=== PATIENT | male | born 1990 | race Caucasian/White ===

== ENCOUNTER 2018-02-23 16:23 | Emergency (ER) | payer SELFPAY ==
[2018-02-23 16:24] VITALS: BP 141/108; PULSE 101; RESP 24; TEMP 36.6; O2SAT 97; BMI 23.6
--- NOTE | 2018-02-23 16:33 | RAD_ITS ---
STUDY: X-RAY - RIGHT TIBIA AND FIBULA REASON FOR EXAM: Male, 27 years old. Fall with abrasions. TECHNIQUE: Frontal and lateral view(s) of the tibia and fibula were obtained. COMPARISON: None. FINDINGS: Normal visualized tibia. Normal visualized fibula. There is no demonstrated acute fracture. There is anterior soft tissue swelling. RAD/Tibia & Fibula 2 Views IMPRESSION: No fracture seen. Electronically Signed: Ronak Ac MD at 17:25 EDT , Service support ,
--- NOTE | 2018-02-23 16:50 | ED.DCSUM_ITS ---
- ER Visit Summary Date of Service: 02/23/18 Chief Complaint: [Laceration right long] History of Present Illness: The patient is a 27 M [presents the emergency department after sustaining a laceration to his right long while skateboarding. Patient states that he struck his long against a rail causing it to split open. Patient able to bear weight but having pain with ambulation. Patient up- to-date on tetanus.] Physical Examination: [Right leg-there is a 2.5 cm vertical laceration over the mid long overlying the mid tibia. Patient does have some diffuse bony tenderness on exam. No active bleeding currently. Neurovascularly intact distally.] Test Results: [X-ray of the right tibia and fibula obtained showed no fractures] Emergency Department Course and Treatment: [Laceration repair-wound sterilely draped and prepped. Wound anesthetized locally with 1% lidocaine total 3 cc. Wound cleansed with Shur-Clens and irrigated with copious saline. Using 4-0 nylon a total of 3 single interrupted sutures placed with good wound edge approximation. Patient tolerated procedure well. Patient had a clean dressing applied.] Treatment Plan: [Suture removal in 10 days.] Disposition: [Discharged home in stable condition. Patient advised to return if worsening pain, redness, purulent drainage, or condition should worsen in any way.] Impression: [Laceration right leg 2.5 cm simple repair Contusion right leg] This note was generated with [employer] dictation software. It may contain incorrect words, spelling, and punctuation that were not noted in review of the chart prior to signing ED Disposition - Plan for ED Patient: Chief Complaint: Laceration Referrals: Care Physician,No Primary [Primary Care Provider] -
--- NOTE | 2018-02-23 16:50 | ED.DEP ---
ED Disposition - Plan for ED Patient: Chief Complaint: Laceration Instructions: ED Laceration Ext Sutr Stap Tape, ED Contusion Lower Ext Referrals: Care Physician,No Primary [Primary Care Provider] - Lilian Tloedo MD [STAFF PHYSICIAN] - 10 Day for suture removal
== END 2018-02-23 17:13 | disposition home or self-care (01) ==
PROVIDERS: Emergency Provider Emergency Medicine
DX: S81.811A Laceration without foreign body, right lower leg, initial encounter (principal); W20.8XXA Other cause of strike by thrown, projected or falling object, initial encounter; Y93.51 Activity, roller skating (inline) and skateboarding; Y92.89 Other specified places as the place of occurrence of the external cause; Y99.9 Unspecified external cause status
CPT/HCPCS: 12001; 73590; 99283

== ENCOUNTER 2018-04-05 06:01 | Outpatient (CLI) | payer SELFPAY ==
[2018-04-05] VITALS (7 sets, daily range): BP systolic 130–150; BP diastolic 67–89; PULSE 52–93; RESP 16–17; TEMP 36.2–36.4; O2SAT 97–99; BMI 24.2
[2018-04-05] MEDS: Glucagon 1 MG/ML Syringe IV ×2 (06:19→07:05)
--- NOTE | 2018-04-05 06:39 | NURSING ---
some pieces of chicken came up, trying hot water.
--- NOTE | 2018-04-05 07:38 | ED.VISSUMM ---
- ER Visit Summary Date of Service: 04/05/18 Chief Complaint: Food impaction History of Present Illness: The patient is a 28 M presenting secondary to concern for food impaction. Patient states that he has had prior similar episodes in the past that required endoscopy. At 5 PM last night patient ate some chicken, he states that he has been unable to get it to go down completely and is having difficulty with tolerating liquids and solids. Physical Examination: Vital signs are within normal limits, patient is afebrile. General: Patient is well-nourished well-developed and in no acute distress. Head: Normocephalic, atraumatic Eyes: Pupils equal round and reactive bilaterally, extra occular motion intact bialterally ENT: Moist mucous membranes Neck: Supple, no lymphadenopathy, no JVD, no meningismus CVS: Heart regular rate and rhythm, no murmurs, rubs or gallops, radial pulses 2+ bilaterally Resp: Respirations nondistressed, lung sounds clear bilaterally Abdomen: Soft, nontender, nondistended, no palpable masses, normal bowel sounds Back: Nontender Extremities: Nontender, atraumatic, active full range of motion, no peripheral edema Skin: warm, no rashes, no petechia Neuro: Alert and oriented x 4, CN 2-12 intact, no lateralizing neurological defecits Psyc: Normal affect Test Results: None indicated Emergency Department Course and Treatment: Patient presented due to concern for a esophageal food impaction. IV was established patient was given glucagon ?2 and was p.o. challenged with Coca-Cola and warm water. Patient was immediately vomiting these things up and was unable to tolerate these liquids. I believe he requires endoscopy. I discussed with Dr. Kirkland who agreed to perform endoscopy on this patient to relieve his food impaction. Disposition: Endoscopy Impression: 1. Esophageal food impaction This note was generated with [employer] dictation software. It may contain incorrect words, spelling, and punctuation that were not noted in review of the chart prior to signing ED Disposition - Plan for ED Patient: Chief Complaint: Foreign Body Referrals: Care Physician,No Primary [Primary Care Provider] -
--- NOTE | 2018-04-05 07:41 | ED.DCSUM_ITS ---
- ER Visit Summary Date of Service: 04/05/18 Chief Complaint: Food impaction History of Present Illness: The patient is a 28 M presenting secondary to concern for food impaction. Patient states that he has had prior similar episodes in the past that required endoscopy. At 5 PM last night patient ate some chicken, he states that he has been unable to get it to go down completely and is having difficulty with tolerating liquids and solids. Physical Examination: Vital signs are within normal limits, patient is afebrile. General: Patient is well-nourished well-developed and in no acute distress. Head: Normocephalic, atraumatic Eyes: Pupils equal round and reactive bilaterally, extra occular motion intact bialterally ENT: Moist mucous membranes Neck: Supple, no lymphadenopathy, no JVD, no meningismus CVS: Heart regular rate and rhythm, no murmurs, rubs or gallops, radial pulses 2 + bilaterally Resp: Respirations nondistressed, lung sounds clear bilaterally Abdomen: Soft, nontender, nondistended, no palpable masses, normal bowel sounds Back: Nontender Extremities: Nontender, atraumatic, active full range of motion, no peripheral edema Skin: warm, no rashes, no petechia Neuro: Alert and oriented x 4, CN 2-12 intact, no lateralizing neurological defecits Psyc: Normal affect Test Results: None indicated Emergency Department Course and Treatment: Patient presented due to concern for a esophageal food impaction. IV was established patient was given glucagon ?2 and was p.o. challenged with Coca-Cola and warm water. Patient was immediately vomiting these things up and was unable to tolerate these liquids. I believe he requires endoscopy. I discussed with Dr. Kirkland who agreed to perform endoscopy on this patient to relieve his food impaction. Disposition: Endoscopy Impression: 1. Esophageal food impaction This note was generated with [employer] dictation software. It may contain incorrect words, spelling, and punctuation that were not noted in review of the chart prior to signing ED Disposition - Plan for ED Patient: Chief Complaint: Foreign Body Referrals: Care Physician,No Primary [Primary Care Provider] -
[2018-04-05] MEDS: 0.9% Normal Saline 1,000 ML 150 ML IV (08:23)
--- NOTE | 2018-04-05 08:37 | HP.PCM_ITS ---
History of Present Illness Date of Admission: 04/05/18 The patient is a 28 year old M with an esophageal foreign body. He notes a prior episode of an esophageal foreign body removed in [place] 2 years previously. He did not have a follow up EGD. He notes dysphagia to solids every week. He ate chicken last night at 5pm. He will normally be able to clear his obstruction with hot water. He has not been able to do so this event. He was given glucagon in the ER. It did not help Past Medical History Allergies No Known Allergies Allergy (Verified 04/05/18 06:01) Home Medications: Ambulatory Orders Medication Instructions Recorded No Known/Unobtainable [No Known 08/07/15 Home Medications] Surgical History: no surgical history Smoking Status: Never smoker Review of Systems Constitutional: Denies: Chills, Fever, Weight Change HEENT: Denies: Head Aches, Sinus Congestion, Sinus Drainage Cardiovascular: Denies: Chest Pain, Palpitations Respiratory: Denies: Cough, Shortness of breath at rest, Sputum production Gastrointestinal: Denies: Abdominal Pain, Nausea, Vomiting Genitourinary: Denies: Dysuria Musculoskeletal: Denies: Joint Pain, Joint Tenderness Skin: Denies: Rash, Wounds Neurological: Denies: Numbness, Tingling, Focal weakness Psychiatric: Denies: Anxiety, Depression, Homicidal Ideations, Suicidal Ideations Hematologic/ Lymphatic: Denies: Easy Bruising, Easy Bleeding VTE Information - Inpt Only VTE Present on Admission: No VTE Pharm Prophylaxis ordered?: No - Physical Exam General: Alert, Oriented x3, Cooperative HEENT: Atraumatic, PERRLA, EOMI, Normocephalic Neck: Supple, No JVD, Negative Carotid Bruits Lungs: Clear to auscultation, Normal air movement Cardiovascular: Regular rate, No murmurs Abdomen: Bowel Sounds Present, Soft, Non Tender Extremities: No edema, Capillary Refill Less than 3 Seconds Skin: No rashes, No breakdown Musculoskeletal: No Tenderness to Palpation of Joints or Extremities Neurological: Cranial nerves II-XII grossly intact Psych/Mental Status: Normal Affect, Appropriate Vital Signs Temp Pulse Resp BP Pulse Ox 97.5 F L 52 L 17 142/67 H 99 04/05/18 06:02 04/05/18 06:02 04/05/18 06:02 04/05/18 06:04/05/18 06:02 Oxygen Delivery Method Room Air Weight: 81 kg Body Mass Index (BMI) 24.2 Assessment/Plan recurring esophageal foreign body. I plan to perform EGD with removal of esophageal foreign body. THe patient understands the risks, benefits and possible complications including the need for intubation and esophageal injury. He consents. I plan to have him follow up a few weeks from now for follow up endoscopy/ biopsy to assess for eosinophilic esophagitis
--- NOTE | 2018-04-05 09:46 | OP.PCM_ITS ---
Report of Operation Date of Procedure: 04/05/18 Post-Operative Diagnosis: esophageal foreign body Surgery/Procedure Performed:: esophageal foreign body - passed spontaneously Description of Surgical Findings:: EGD Type of Anesthesia:: MAC Anesthesiologist: Hardik Kumar Specimen's removed: none Description of Procedure: The patient was brought to the endoscopy suite. Sign in was performed verifying patient, site, planned procedure, critical nursing information, the patient was monitored with cardiac, pulse oximetric, and blood pressure monitoring devices. Monitored anesthetic care was provided for sedation. Following IV sedation and after the oropharynx was sprayed with Cetacaine spray , a video gastroscope was inserted in the oropharynx and advanced down the esophagus without difficulty. The scope was advanced through the stomach. by this point in time, the esophageal foreign body passed by itself the stomach and was consistent with the chicken that the patient described. The stomach itself looked unremarkable. The scope withdrawn. There were signs of irritation from the GE junction to about the mid esophagus consistent with a recent esophageal foreign body. No biopsies were obtained at this time. The patient tolerated the procedure well and was brought to recovery in stable condition
== END 2018-04-05 10:37 | disposition home or self-care (01) ==
LOC: ED 07:45 → EN 08:43 → AC 04-06 10:49
PROVIDERS: Visit Provider Surgery
PROC: 0DJ08ZZ Inspection of Upper Intestinal Tract, Via Natural or Artificial Opening Endoscopic (ICD-10-PCS; CPT 43235; principal; 2018-04-05 09:15)
DX: T18.128A Food in esophagus causing other injury, initial encounter (principal); X58.XXXA Exposure to other specified factors, initial encounter; Y93.89 Activity, other specified; Y92.9 Unspecified place or not applicable; Y99.9 Unspecified external cause status
CPT/HCPCS: 43235; J7030; A4216; J1610

== ENCOUNTER 2018-09-13 21:54 | Emergency (ER) | payer SELFPAY ==
[2018-09-13 21:55] VITALS: BP 158/96; PULSE 63; RESP 16; TEMP 37.1; O2SAT 99; BMI 25.7
[2018-09-13] MEDS: 0.9% Normal Saline 1,000 ML 1000 ML IV (22:22)
[2018-09-13] MEDS: Ondansetron 4 MG/2 ML Vial IV (22:23)
[2018-09-13] MEDS: Glucagon 1 MG/ML Syringe IV (22:23)
--- NOTE | 2018-09-13 23:07 | ED.VISSUMM ---
- ER Visit Summary Date of Service: 09/13/18 Chief Complaint: Esophageal foreign body History of Present Illness: The patient is a 28 M with no primary care physician. He reports that 530 this afternoon he was eating chicken breast and got some stuck in his esophagus. He has tried to relieve this and reports he is gotten some of it out, but he is still unable to even swallow his saliva. He reports that his throat feels raw from trying to bring this up. States that pain is 8 out of 10 at worst and 6 out of 10 currently. Is worsened by coughing. Is relieved by nothing. He denies any abdominal pain. No nausea, vomiting, or diarrhea. His last bowel was today. He said no melena hematochezia. No dysuria or frequency. Patient reports that he has had this multiple times in the past. Physical Examination: Vitals: Stable. Afebrile. General: Well-nourished and well-developed. Head: Normocephalic atraumatic. Neck: Supple, no lymphadenopathy. No JVD. Nontender. Cardiovascular: Regular rate and rhythm. No murmurs. Respiratory: No respiratory distress. Clear to auscultation bilaterally. Abdominal: Soft, nontender, nondistended, normal bowel sounds. No guarding, rebound, or peritoneal signs. Back: Nontender. Extremities: Nontender, no edema. Skin: Normal color, no rash. Neurologic: Alert and oriented ?3. Cranial nerves II through XII are intact. Normal strength and sensation. Psych: Normal affect. Emergency Department Course and Treatment: Patient had an IV placed. He was given glucagon and Zofran IV. We tried p.o. challenge with Coca-Cola and with warm water (he reports this worked better last time) without relief. Treatment Plan: The patient was discussed with Dr. Burt Bañuelos, who is on-call for surgery for no doc, and he asked that I speak with [facility] as Dr. Kirkland did endoscopy on him in March. The patient was discussed with Dr. Ojeda who reports that she does not treat esophageal impactions and asked that we transfer the patient. Patient reports that he has been seen at [facility] in the past for this. He was discussed with them and will be transferred for further evaluation and treatment. He does not want to incur the expense of transferred by squad and will drive himself. Disposition: Transferred in stable condition. Impression: 1. Esophageal impaction. This note was generated with [employer] dictation software. It may contain incorrect words, spelling, and punctuation that were not noted in review of the chart prior to signing ED Disposition - Plan for ED Patient: Chief Complaint: Foreign Body Referrals: Care Physician,No Primary [Primary Care Provider] -
[2018-09-13 23:48] VITALS: BP 159/90; PULSE 89; RESP 18; O2SAT 97
--- OUTSIDE RECORDS SUMMARY | 2018-11-09 05:15 | XMS RPT_ITS ---
:1990 Author Organization [facility] Care Team Providers Name Role Phone LUIS MARTIN Myrick. Attending Unavailable PROVIDER, UNKNOWN Referring Unavailable Brian Lim Primary Care Unavailable Primay Care Physicia, No Primary Care Unavailable Omar Higgins Attending Unavailable Marcio Schaefer Attending Unavailable Primay Care Physicia, No Primary Care Unavailable Primay Care Physicia, No Primary Care Unavailable Eric Loja Attending Unavailable PROBLEMS PROBLEMS DATE TYPE CONDITION / CODE ATTENDING STATUS SOURCE 09/14/2018 Admitting Food in esophagus MARTIN CORRAL. Active [facility] Diagnosis causing other System injury, initial Repository encounter / T18.128A(ICD-10) 09/14/2018 Admitting Exposure to other LUIS, VASQUEZAL X. Active [facility] Diagnosis specified System factors, initial Repository encounter / X58.XXXA(ICD-10) 09/14/2018 Admitting Dysphagia, LUIS, KAMAL X. Active [facility] Diagnosis unspecified / System R13.10(ICD-10) Repository 09/14/2018 Admitting Other specified LUIS, KAMAL X. Active [facility] Diagnosis diseases of System esophagus / Repository K22.8(ICD-10) 09/14/2018 Admitting Gastro-esophageal LUIS, KAMAL X. Active [facility] Diagnosis reflux disease System without Repository esophagitis / K21.9(ICD-10) 09/14/2018 Admitting Nausea with LUIS, KAMAL X. Active [facility] Diagnosis vomiting, System unspecified / Repository R11.2(ICD-10) 09/14/2018 Admitting Headache / LUIS, KAMAL X. Active [facility] Diagnosis R51(ICD-10) System Repository 09/14/2018 Admitting Foreign body of LUIS, KAMAL X. Active [facility] Diagnosis alimentary tract, System part unsp, init Repository encntr / T18.9XXA(ICD-10) PROCEDURES PROCEDURES No Procedure Records FoundRESULTS RESULTS Observed: 09/14/2018 Status: F Source: [facility] SURGICAL PATHOLOGY 11:23 AM SYSTEM REPOSITORY [id number] [facility] DEPARTMENT OF [facility] PATHOLOGY AND LABORATORY MEDICINE [address] [place], [place] [id number] FINAL SURGICAL PATHOLOGY REPORT NAME: ANIVAL MOYA : 1990 28 Y M BILLING NO.: [id number] LOCATION: [address] [place] [address] B PROCEDURE 09/14/2018 DATE: SURGEON: ALEJANDRA LOPEZ M.D. RECEIVED 09/14/2018 DATE: ATTENDING: MARTIN CORRAL M.D. REPORT DATE: 09/15/2018 COPIES TO: DIAGNOSIS: ESOPHAGUS, BIOPSY - SQUAMOUS MUCOSA WITH CHANGES CONSISTENT WITH GASTROESOPHAGEAL REFLUX DISEASE. EOSINOPHILS ARE NOTED WITHIN THE SQUAMOUS MUCOSA. GLANDULAR MUCOSA IS NOT IDENTIFIED. QUAN/HERNANF <Sign Out DrNemo Torres> JOEY ALANIZ MD CLINICAL INFORMATION: Difficulty swallowing SPECIMEN: ESOPHAGUS BIOPSY GROSS DESCRIPTION: Mid esophagus biopsy Received in formalin are multiple fragments of ag, soft tissue that aggregate to 0.9 x 0.4 x 0.1 cm. Specimen entirely submitted in one cassette. (bits ns, 1) RPV/JAF Disclaimer: The following statement applies to all immunohistochemistry, in situ hybridization, molecular studies, and immunofluorescence testing. The use of one or more reagents in the above tests is regulated as an analyte specific reagent (ASR). These tests were developed and their performance characteristics determined by the clinical laboratories of [facility]. They have not been cleared by the US Food and Drug Administration (FDA). The FDA has determined that such clearance or approval is not necessary. All the above immunostains were performed on paraffin embedded tissue. Appropriate positive and negative controls (where applicable) were run in parallel with the patient's specimen; these controls showed expected staining pattern, with acceptable intensity of staining. Immunohistochemical assays have not been validated on decalcified tissues. Results should be interpreted with caution given the raised possibility of false negativity on decalcified specimens. Professional Performing Location: [address] [address]. DEPARTMENT OF PATHOLOGY AND LABORATORY MEDICINE [place], [place] [address] CR CHEST PA/LAT Observed: 09/14/2018 Status: F Source: [facility] 3:02 AM SYSTEM REPOSITORY Patient Name: ANIVAL MOYA Diagnostic Radiology Exam Date/Time 09/14/2018 01:41:16 EST Exam CR Chest PA/LAT Ordering Physician [id number] TEIXEIRA Accession Number [id number] CPT4 Codes 69172 () Reason For Exam food bolus, improved Report Clinical: 28-year-old male patient coming in to the ER complaining of food stuck in the throat, and coughing for about 4 hours. Chest, PA and lateral, 09/14/2018. The tracheobronchial air shadow is unremarkable. The lungs are clear, no infiltration. Pulmonary vessels are well-defined, no indication for cardiac failure. The heart is not enlarged. The visualized bony thorax shows no abnormality. IMPRESSION: Negative chest. Report Dictated on Final Dictated: 09/14/2018 3:02 am Dictating Physician: MD GARNER SHARDUL Signed Date and Time: 09/14/2018 3:03 am Signed by: MD GARNER SHARDUL Transcribed Date and Time: 09/14/2018 3:02 HEMOGRAM Collected: 09/14/2018 Status: F Source: [facility] 2:29 AM SYSTEM REPOSITORY TYPE CODE TESTS RESULT OUT OF RANGE REFERENCE UNITS LAB IWBC 3.6-10.7 10*3/uL WBC Normal 7.4 LAB RBC 4.40-5.90 10*6/uL RBC Normal 4.99 LAB HGB 13.0-18.0 g/dL Normal Hemoglobin 15.7 LAB HCT 40.0-52.0 % Normal Hematocrit 45.3 LAB MCV 80.0-98.0 fL MCV Normal 90.8 LAB MCH 26.0-34.0 pg MCH Normal 31.5 LAB MCHC 32.0-36.0 % MCHC Normal 34.7 LAB RDW 11.5-14.5 % RDW Normal 12.7 LAB PLT 140-440 10*3/uL Platelet Normal 211 LAB MPV 7.4-10.4 fL High MPV 10.8 Performed By: #### JULIAN FOX3M, MG3 #### [employer] [address] [place] [phone] BASIC METABOLIC PANEL Collected: 09/14/2018 Status: F Source: [facility] 2:29 AM SYSTEM REPOSITORY TYPE CODE TESTS RESULT OUT OF RANGE REFERENCE UNITS LAB NA3 137-145 mmol/L Sodium Normal 140 LAB K3 3.5-5.1 mmol/L Normal Potassium 3.9 LAB CL3 98-107 mmol/L Chloride Normal 104 LAB CO23 22-30 mmol/L Carbon Normal Dioxide 27 LAB ANIN3 NA Anion Gap 10 LAB GLUC3 70-100 mg/dL Glucose Normal 83 LAB BUN3 7-20 mg/dL Urea Normal Nitrogen 16 LAB CRET3 0.52-1.25 mg/dL Normal Creatinine 0.91 LAB GF3BR >60 mL/min eGFR > 60.0 LAB GF3WR >60 mL/min eGFR OTHER > 60.0 Result Comment: Source- MDRD equation with creatinine calibration to IDMS(NKDEP) eGFR not recommended for drug dose adjustment LAB CA3 8.4-10.4 mg/dL Normal Calcium 9.0 Performed By: #### JULIAN FOX3M, MG3 #### [employer] [address] [place] [phone] MAGNESIUM Collected: 09/14/2018 Status: F Source: [facility] 2:29 AM SYSTEM REPOSITORY TYPE CODE TESTS RESULT OUT OF RANGE REFERENCE UNITS LAB MG3 1.6-2.3 mg/dL Normal Magnesium 2.2 Performed By: #### DOMINIQUE, JULIAN3M, MG3 #### [employer] [address] [place] [phone] DISCHARGE SUMMARY Observed: 09/14/2018 Status: F Source: [facility] 2:19 AM SYSTEM REPOSITORY Attestation signed by Martin Corral MD at 09/14/2018 9:26 PM Patient seen and examined today. See my notes regarding today's discharge plan on progress note dated 09/14/18 Internal Medicine: Med TeamDischarge Summary and Transition Note Anival Moya : 1990 ADMIT DATE: 09/14/2018 DISCHARGE DATE: 09/14/2018 PRIMARY CARE PHYSICIAN: No primary care provider on file. VISIT STATUS: Observation CODE STATUS: Full Code DISCHARGE DIAGNOSES: Active Problems: Dysphagia Resolved Problems: * No resolved hospital problems. * HOSPITAL COURSE: with past medical history of difficulty swallowing, EGD last done November was normal. Since then, he had no problems swallowing until this afternoon. He had more frequent episodes of GERD in the past, recently now down to once a month, described as heartburn. ? At 530 PM today patient was eating chicken, tortilla, when he felt food getting stuck in his throat. He said he had no difficulty initiating the swallow, but that he felt the food get stuck. He tried drinking some water, but the food did not go down. He had ten episodes of vomiting, with note of some blood streaks towards the end. Denies vomiting blood clots. He denies chest pain, difficulty of breathing. ? Denies smoking. Admits to drinking 4-5 beers a week. Denies illicit drug use. ? Upon arriving at the ED, patient reports that his symptoms has resolved spontaneously. Food that was previously stuck, was able to go down already and he is able to drink water and swallow with no difficulty. EGD performed and showed diffusely irritated esophagus, dilation performed, and biopsies pending. To follow up with GI outpatient, with PPI prescribed for esophageal irritation. PROCEDURES: EGD CONSULTANTS: Dr. Martin Corral GI DISCHARGE MEDICATIONS: Anival Moya Home Medication Instructions MATT:[id number] Printed on:09/14/18 7230 Medication Information pantoprazole (PROTONIX) 40 MG tablet Take 1 tablet by mouth every morning (before breakfast) DIET: Diet NPO Effective Now Diet NPO Time Specified ACTIVITY: No restriction. COMPLEXITY OF FOLLOW UP: [x] Moderate Complexity: follow up within 7-14 calendar days (51664) [] Severe Complexity: follow up within 7 calendar days (94531) FOLLOW UP TESTING, PENDING RESULTS OR REFERRALS AT TRANSITIONAL CARE VISIT: [] Yes [x] No RECOMMENDED NEXT STEPS: Follow-up with PCP and GI DISPOSITION: Home Follow up with Follow-up With Details Why Contact Info Ivy Huston MD On 09/20/2018 at 10:40am 55 [facility] [address] [facility] [address] Notification (telephone encounter) to PCP initiated by discharging physician/delegate: N/A INSTRUCTIONS TO MA/SW: Please call patient on day after discharge (must document patient contacted within 2 business days of discharge). FOLLOW UP QUESTIONS FOR MA/SW: 1. Did you get medications filled and taking them as instructed from discharge? 2. Are you following your discharge instructions from your hospital stay? 3. Please confirm patient is scheduled for a follow up appointment within the above time frame. PROVIDER NOTE Observed: 09/14/2018 Status: F Source: [facility] 12:49 AM SYSTEM REPOSITORY Emergency Department Encounter [facility] 6W MED SURG Patient: Anival Moya : 1990 Date of Evaluation: 09/14/2018 ED Supervising Physician: Beatriz Hung MD I independently examined and evaluated Anival Moya. In brief, he is a 28 y.o. male that presented to the ED with concern for food bolus stuck in esophagus. Says that he was eating boneless chicken and developed the acute sensation of it being stuck. He was transferred here for further evaluation. He says when he sat in the bed he felt like it passed. No fever, chills, cough, dyspnea, headache, lightheadedness, numbness, tingling, weakness, chest pain or pressure, palpitations, nausea, vomiting, rashes. Says he feels much better. Focused exam: Nontoxic. Conversational. Reclined in bed. CN II - XII intact. Pupils equally round and reactive. Extraocular motions intact. Clear sclera. Moist mucosal membranes. Lungs clear with nonlabored breathing. No murmurs, rubs, or gallops appreciated. Abdomen soft, nontender, and nondistended with bowel sounds present. Ambulatory. Brief ED course/MDM: ? Nursing notes were reviewed. Patient was evaluated. Orders placed as below. ? Patient requested a glass of water because he believes the food has passed. This was provided. He has been tolerating oral intake. ? Per transfer paperwork, [place] consulted. Will appreciate their recommendations. ? GI consulted. ? PACs system down. Imaging independently reviewed with internal medicine team. No appreciated pneumothorax, pneumonia, effusions, normal heart contours. Questionable but not deifnite mediastinal air at the left heart border. Medications sodium chloride flush 0.9 % injection 10 mL (not administered) sodium chloride flush 0.9 % injection 10 mL (not administered) magnesium hydroxide (MILK OF MAGNESIA) 400 MG/5ML suspension 30 mL (not administered) ondansetron (ZOFRAN) injection 4 mg (not administered) acetaminophen (TYLENOL) tablet 650 mg (not administered) pantoprazole (PROTONIX) injection 40 mg (not administered) And sodium chloride (PF) 0.9 % injection 10 mL (not administered) Orders Placed This Encounter Procedures ? XR CHEST STANDARD (2 VW) ? CBC ? Basic Metabolic Panel w/ Reflex to MG ? Magnesium ? Diet NPO Effective Now ? Vital signs per unit routine ? Tobacco cessation education ? Up as tolerated ? Place intermittent pneumatic compression device ? Full Code ? Inpatient consult to Internal Medicine ? Inpatient consult to GI ? Consult to Gastroenterology ? Initiate Oxygen Therapy Protocol ? PATIENT STATUS (FROM ED OR OR/PROCEDURAL) Observation Critical Care: 0 minutes, excluding separately reportable procedures were spent directly caring for patient, interpreting testing, consulting, and documenting care. There was a high probability of clinically significant/life threatening deterioration in the patient's condition which required my urgent intervention. Impression: 1. Food impaction of esophagus, initial encounter All diagnostic, treatment, and disposition decisions were made by myself in conjunction with the [facility]. For all further details of the patient's emergency department visit, please see their documentation. (Please note that portions of this note may have been completed with a voice recognition program. Efforts were made to edit the dictations but occasionally words are mis-transcribed.) Beatriz Hung MD [employer] Beatriz Hung MD 09/14/18 0224 ED PROVIDER NOTE Observed: 09/14/2018 Status: F Source: [facility] 12:49 AM SYSTEM [facility] Patient: Anival Moya : 1990 Date of Evaluation: 09/14/2018 ED [facility] Provider: TORI Youssef CNP Chief Complaint Chief Complaint Patient presents with ? Airway Obstruction pt came from [place] for a food bolus stuck in his throat. just after arrival, pt stated that he feels like it passed [place] Anival Moya is a 28 y.o. who presents to the emergency department From another facility with food bolus. Earlier today he was eating boneless chicken, was stuck in his throat, and he is unable to swallow since then. He had symptoms like this in the past. He actually reports when he arrived in the Emergency Department his symptoms have resolved and he feels like he can swallow now. He received glucagon prior to arrival. ROS: Review of Systems At least 10 systemsreviewed and otherwise acutely negative except as in the [place]. Past History No past medical history on file. No past surgical history on file. Social History Social History ? Marital status: Single Spouse name: N/A ? Number of children: N/A ? Years of education: N/A Social History Main Topics ? Smoking status: Not on file ? Smokeless tobacco: Not on file ? Alcohol use Not on file ? Drug use: Unknown ? Sexual activity: Not on file Other Topics Concern ? Not on file Social History Narrative ? No narrative on file Medications/Allergies Previous Medications No medications on file No Known Allergies Physical Exam ED Triage Vitals [09/14/18 0057] BP Temp Temp Source Pulse Resp SpO2 Height Weight 108/79 98.2 ?F (36.8 ?C) Oral 86 18 99 % -- -- Physical Exam General: Vital signs noted, nontoxic-appearing HEENT: Sclera clear, moist mucous membranes, neck is supple and nontender Cardiac: Regular heart rate and rhythm Pulmonary: No respiratory distress and lungs are clear Abdomen: Soft and nontender Extremities: Nontender, ambulating without difficulty Skin: Color, warm, dry, no cyanosis Neurologic: Alert, no focal findings Psychiatric: cooperative and appropriate exam otherwise unremarkable Diagnostics Labs: No results found for this visit on 09/14/18. Radiographs: No results found. ED Course and MDM In brief, Anival Moya is a 28 y.o. male who presented to the emergency department As described above. We gave him a small sip of water and he is able to keep this down without difficulty with no coughing or drooling. Maintaining secretions without difficulty and speaking in full sentences. I did touch base with admitting resident and gastrointestinal. Because patient is now swallowing without difficulty collaborative plan with Dr. Aguilar is to medically admit patients and he will have scope tomorrow morning. We will check chest x-ray to evaluate for perforation and admitting resident to follow- up on this read after attending and admitting resident reviewed images together. Admitting resident to admit and we do feel patient is safe for floor. Patient made n.p.o. per gastrointestinal. ED Medication Orders None Final Impression 1. Food impaction of esophagus, initial encounter DISPOSITION Admitted 09/14/2018 01:28:06 AM Patient seen independently with an Emergency Medicine attending available for supervision. (Please note that portions of this note may have been completed with a voice recognition program. Efforts were made to edit the dictations but occasionally words aremis-transcribed.) TORI Youssef CNP Acute Care [facility] TORI Youssef CNP 09/14/18 0438 EMERGENCY DEPARTMENT Observed: 09/13/2018 Status: F Source: [facility] SUMMARY 11:11 PM [facility] REPOSITORY [facility] Medical Records Department [address] [place] [address] Emergency Department Summary 09/13/18 2307 MR#: [id number] Acct: [id number] Name: ANIVAL MOYA Rep #: [id number] : 1990 28 From: Eric Loja MD PCP: Care Physician, No Primary Status: REG ER - ER Visit Summary Date of Service: 09/13/18 Chief Complaint: Esophageal foreign body History of Present Illness: The patient is a 28 M with no primary care physician. He reports that 530 this afternoon he was eating chicken breast and got some stuck in his esophagus. He has tried to relieve this and reports he is gotten some of it out, but he is still unable to even swallow his saliva. He reports that his throat feels raw from trying to bring this up. States that pain is 8 out of 10 at worst and 6 out of 10 currently. Is worsened by coughing. Is relieved by nothing. He denies any abdominal pain. No nausea, vomiting, or diarrhea. His last bowel was today. He said no melena hematochezia. No dysuria or frequency. Patient reports that he has had this multiple times in the past. Physical Examination: Vitals: Stable. Afebrile. General: Well-nourished and well-developed. Head: Normocephalic atraumatic. Neck: Supple, no lymphadenopathy. No JVD. Nontender. Cardiovascular: Regular rate and rhythm. No murmurs. Respiratory: No respiratory distress. Clear to auscultation bilaterally. Abdominal: Soft, nontender, nondistended, normal bowel sounds. No guarding, rebound, or peritoneal signs. Back: Nontender. Extremities: Nontender, no edema. Skin: Normal color, no rash. Neurologic: Alert and oriented 3. Cranial nerves II through XII are intact. Normal strength and sensation. Psych: Normal affect. Emergency Department Course and Treatment: Patient had an IV placed. He was given glucagon and Zofran IV. We tried p.o. challenge with Coca-Cola and with warm water (he reports this worked better last time) without relief. Treatment Plan: The patient was discussed with Dr. Burt Bañuelos, who is on-call for surgery for no doc, and he asked that I speak with [facility] as Dr. Kirkland did endoscopy on him in March. The patient was discussed with Dr. Ojeda who reports that she does not treat esophageal impactions and asked that we transfer the patient. Patient reports that he has been seen at [facility] in the past for this. He was discussed with them and will be transferred for further evaluation and treatment. He does not want to incur the expense of transferred by squad and will drive himself. Disposition: Transferred in stable condition. Impression: 1. Esophageal impaction. This note was generated with [employer] software. It may contain incorrect words, spelling, and punctuation that were not noted in review of the chart prior to signing ED Disposition - Plan for ED Patient: Chief Complaint: Foreign Body Referrals: Care Physician,No Primary [Primary Care Provider] - What to do if you have Problems For any increased pain, shortness of breath, bleeding, nausea or vomiting, chest pain, or any unexpected problems, contact your Primary Care Provider. Call [facility] ([phone]) or report to the closest Emergency Room. Call 911 if necessary. 09/13/18 2311 <Electronically signed by Eric Loja MD> Date Eric Loja MD Cosigner Signature (If Indicated): Date CC: No Primary Care Physician PROGRESS Observed: 04/08/2018 Status: COMPLETED Source: [place] 8:30 PM [facility] [place] REPOSITORY O ID: [id number] Author: Marcio Schaefer Service: (none) Author Type: Physician Type: Progress Notes Filed: 04/08/2018 8:34 PM Note Text: OPERATIVE NOTATION FOR [facility] SURGICAL PROCEDURE. April 05, 2018 Anival Moya 1990 [id number] male PROCEDURE: EGD - [id number] SURGEON: Jacklyn Schaefer M.D. FACS BOILER COVERER HELPER: None DEPT: WQ PROVIDER: [id number] Schaefer MD POS: [id number] DIAGNOSIS: (T18.108D) Esophageal foreign body, subsequent encounter (primary encounter diagnosis) ASA CLASS: 1E - healthy emergency FINDINGS: COMPLICATIONS: None PMHx - No past medical history on file. COMORBIDITIES - None Post Op Occurrences - None Wound Classification - Clean Contaminated Operative note dictated in the [facility] dictation system. Marcio Schaefer MD OPERATIVE REPORT Observed: 04/05/2018 Status: F Source: [facility] 2:10 PM [facility] REPOSITORY [facility] Medical Records Department [address] [place] [address] [place] [address] Operative Report 04/05/18 0946 MR#: [id number] Acct: [id number] Name: ANIVAL MOYA Rep #: [id number] : 1990 28 From: Marcio Schaefer MD PCP: Neena Kent, Adele Primary Status: DEP CLI Y Location: EN Report of Operation Date of Procedure: 04/05/18 Post-Operative Diagnosis: esophageal foreign body Surgery/Procedure Performed:: esophageal foreign body - passed spontaneously Description of Surgical Findings:: EGD Type of Anesthesia:: MAC Anesthesiologist: Hardik Kumar Specimen's removed: none Description of Procedure: The patient was brought to the endoscopy suite. Sign in was performed verifying patient, site, planned procedure, critical nursing information, the patient was monitored with cardiac, pulse oximetric, and blood pressure monitoring devices. Monitored anesthetic care was provided for sedation. Following IV sedation and after the oropharynx was sprayed with Cetacaine spray, a video gastroscope was inserted in the oropharynx and advanced down the esophagus without difficulty. The scope was advanced through the stomach. by this point in time, the esophageal foreign body passed by itself the stomach and was consistent with the chicken that the patient described. The stomach itself looked unremarkable. The scope withdrawn. There were signs of irritation from the GE junction to about the mid esophagus consistent with a recent esophageal foreign body. No biopsies were obtained at this time. The patient tolerated the procedure well and was brought to recovery in stable condition 04/05/18 1410 <Electronically signed by Marcio Schaefer MD> Date Marcio Schaefer MD CC: No Primary Care Physician; Marcio Schaefer MD Signed HISTORY AND PHYSICAL Observed: 04/05/2018 Status: F Source: [facility] EXAM 8:37 AM [facility] REPOSITORY [facility] Medical Records Department [address] [place] [address] History and Physical 04/05/18 0831 MR#: [id number] Acct: [id number] Name: BRYANTANIVAL Warren Rep #: [id number] : 1990 28 From: Marcio Schaefer MD PCP: Care Physician, No Primary Status: REG ER Y Location: ED History of Present Illness Date of Admission: 04/05/18 The patient is a 28 year old M with an esophageal foreign body. He notes a prior episode of an esophageal foreign body removed in [place] 2 years previously. He did not have a follow up EGD. He notes dysphagia to solids every week. He ate chicken last night at 5pm. He will normally be able to clear his obstruction with hot water. He has not been able to do so this event. He was given glucagon in the ER. It did not help Past Medical History Allergies No Known Allergies Allergy (Verified 04/05/18 06:01) Home Medications: Ambulatory Orders Medication Instructions Recorded No Known/Unobtainable [No Known 08/07/15 Home Medications] Surgical History: no surgical history Smoking Status: Never smoker Review of Systems Constitutional: Denies: Chills, Fever, Weight Change HEENT: Denies: Head Aches, Sinus Congestion, Sinus Drainage Cardiovascular: Denies: Chest Pain, Palpitations Respiratory: Denies: Cough, Shortness of breath at rest, Sputum production Gastrointestinal: Denies: Abdominal Pain, Nausea, Vomiting Genitourinary: Denies: Dysuria Musculoskeletal: Denies: Joint Pain, Joint Tenderness Skin: Denies: Rash, Wounds Neurological: Denies: Numbness, Tingling, Focal weakness Psychiatric: Denies: Anxiety, Depression, Homicidal Ideations, Suicidal Ideations Hematologic/ Lymphatic: Denies: Easy Bruising, Easy Bleeding VTE Information - Inpt Only VTE Present on Admission: No VTE Pharm Prophylaxis ordered?: No - Physical Exam General: Alert, Oriented x3, Cooperative HEENT: Atraumatic, PERRLA, EOMI, Normocephalic Neck: Supple, No JVD, Negative Carotid Bruits Lungs: Clear to auscultation, Normal air movement Cardiovascular: Regular rate, No murmurs Abdomen: Bowel Sounds Present, Soft, Non Tender Extremities: No edema, Capillary Refill Less than 3 Seconds Skin: No rashes, No breakdown Musculoskeletal: No Tenderness to Palpation of Joints or Extremities Neurological: Cranial nerves II-XII grossly intact Psych/Mental Status: Normal Affect, Appropriate Vital Signs Temp Pulse Resp BP Pulse Ox 97.5 F L 52 L 17 142/67 H 99 04/05/18 06:02 04/05/18 06:02 04/05/18 06:02 04/05/18 06:02 04/05/18 06:02 Oxygen Delivery Method Room Air Weight: 81 kg Body Mass Index (BMI) 24.2 Assessment/Plan recurring esophageal foreign body. I plan to perform EGD with removal of esophageal foreign body. THe patient understands the risks, benefits and possible complications including the need for intubation and esophageal injury. He consents. I plan to have him follow up a few weeks from now for follow up endoscopy/biopsy to assess for eosinophilic esophagitis 04/05/18 0837 <Electronically signed by Marcio Schaefer MD> Date Marcio Schaefer MD Cosigner Signature: Date (if applicable) CC: No Primary Care Physician; Marcio Schaefer MD Signed EMERGENCY DEPARTMENT Observed: 04/05/2018 Status: F Source: [place] SUMMARY 8:15 AM [facility] REPOSITORY [facility] Medical Records Department [address] [place] [address] Emergency Department Summary 04/05/18 0738 MR#: [id number] Acct: [id number] Name: ANIVAL MOYA Rep #: [id number] : 1990 28 From: Mina Hu MD PCP: Care Physician, No Primary Status: REG ER - ER Visit Summary Date of Service: 04/05/18 Chief Complaint: Food impaction History of Present Illness: The patient is a 28 M presenting secondary to concern for food impaction. Patient states that he has had prior similar episodes in the past that required endoscopy. At 5 PM last night patient ate some chicken, he states that he has been unable to get it to go down completely and is having difficulty with tolerating liquids and solids. Physical Examination: Vital signs are within normal limits, patient is afebrile. General: Patient is well-nourished well-developed and in no acute distress. Head: Normocephalic, atraumatic Eyes: Pupils equal round and reactive bilaterally, extra occular motion intact bialterally ENT: Moist mucous membranes Neck: Supple, no lymphadenopathy, no JVD, no meningismus CVS: Heart regular rate and rhythm, no murmurs, rubs or gallops, radial pulses 2+ bilaterally Resp: Respirations nondistressed, lung sounds clear bilaterally Abdomen: Soft, nontender, nondistended, no palpable masses, normal bowel sounds Back: Nontender Extremities: Nontender, atraumatic, active full range of motion, no peripheral edema Skin: warm, no rashes, no petechia Neuro: Alert and oriented x 4, CN 2-12 intact, no lateralizing neurological defecits Psyc: Normal affect Test Results: None indicated Emergency Department Course and Treatment: Patient presented due to concern for a esophageal food impaction. IV was established patient was given glucagon 2 and was p.o. challenged with Coca-Cola and warm water. Patient was immediately vomiting these things up and was unable to tolerate these liquids. I believe he requires endoscopy. I discussed with Dr. Kirkland who agreed to perform endoscopy on this patient to relieve his food impaction. Disposition: Endoscopy Impression: 1. Esophageal food impaction This note was generated with [employer] dictation software. It may contain incorrect words, spelling, and punctuation that were not noted in review of the chart prior to signing ED Disposition - Plan for ED Patient: Chief Complaint: Foreign Body Referrals: Care Physician,No Primary [Primary Care Provider] - What to do if you have Problems For any increased pain, shortness of breath, bleeding, nausea or vomiting, chest pain, or any unexpected problems, contact your Primary Care Provider. Call [facility] ([phone]) or report to the closest Emergency Room. Call 911 if necessary. 04/05/18 0840 <Electronically signed by Mina Hu MD> Date Mina Hu MD Cosigner Signature (If Indicated): Date CC: No Primary Care Physician CNOP Observed: 04/05/2018 Status: COMPLETED Source: [place] 12:00 AM [facility] REPOSITORY Operative Note (Enc) (GENSWS) Progress Notes: Marcio Schaefer MD 04/08/2018 8:34 PM Signed OPERATIVE NOTATION FOR [facility] SURGICAL PROCEDURE. April 05, 2018 Anival Moay 1990 [id number] male PROCEDURE: EGD - [id number] SURGEON: Jacklyn Schaefer M.D. FACS BOILER COVERER HELPER: None DEPT: PROVIDER: R70=TfodopvMarcio Schaefer MD POS: 2Y3=OHJDKBTISC DIAGNOSIS: (T18.108D) Esophageal foreign body, subsequent encounter (primary encounter diagnosis) ASA CLASS: 1E - healthy emergency FINDINGS: COMPLICATIONS: None PMHx - No past medical history on file. COMORBIDITIES - None Post Op Occurrences - None Wound Classification - Clean Contaminated Operative note dictated in the [facility] dictation system. Marcio Schaefer MD Encounter Status:Closed by MARCIO SCHAEFER MD on 04/08/18 PROGRESS Observed: 03/17/2018 Status: COMPLETED Source: [place] 5:53 PM [facility] REPOSITORY HNO ID: [id number] [facility]: [facility] Service: (none) Author Type: Nurse Practitioner Type: Progress Notes Filed: 03/17/2018 7:33 PM Note Text: Subjective HPI Anival Moya is a 27 year old male who presents with right ear uncomfortable and feeling plugged. He used ear drops and an ear candle and a suction bulb and got a lot of wax out of it. He is having trouble hearing. He wears ear plugs at work daily. Review of Systems Constitutional: Negative. Negative for fever. HENT: Positive for ear pain and hearing loss. Negative for ear discharge and sore throat. Respiratory: Negative. Cardiovascular: Negative. Skin: Negative. BP 120/74 Pulse 76 Temp 36.7 ?C (98.1 ?F) (Left Tympanic) Resp 14 Wt 79.8 kg (176 lb) BMI 23.97 kg/m? No past medical history on file. PAST SURGICAL HISTORY Procedure Laterality Date - REMOVAL OF TONSILS,<12 Y/O Tonsillectomy ALLERGIES Patient has no known allergies. MEDICATIONS ibuprofen (MOTRIN) 800 mg tablet Take 1 tablet by mouth every 8 hours as needed for Pain (with food.). codeine-guaiFENesin (ROBITUSSIN AC) 10-100 mg/5 mL syrup Take 5-10 mL by mouth three times daily as needed for Cough or Cold/Allergy Symptoms. May cause drowsiness. FAMILY HISTORY Problem Relation Age of Onset - None Mother - None Father Social History Substance Use Topics - Smoking status: Never Smoker - Smokeless tobacco: Never Used - Alcohol use No Objective Physical Exam Constitutional: He is well-developed, well-nourished, and in no distress. HENT: Head: Normocephalic. Left Ear: Tympanic membrane, external ear and ear canal normal. Right ear: Cerumen impairs exam of clinically significant portions of the external auditory canal, tympanic membrane or middle ear condition. Eyes: Conjunctivae are normal. Right eye exhibits no discharge. Left eye exhibits no discharge. Cardiovascular: Normal rate. Pulmonary/Chest: Effort normal. Skin: Skin is warm and dry. Nursing note and vitals reviewed. ASSESSMENT/PLAN: 1. Impacted cerumen of right ear - ICD9: 380.4, ICD10: H61.21 -Cerumen removed via irrigation, patient tolerated procedure well. Post procedure ear canal is clear and TM is well visualized with bony landmarks intact and no sign of inflammation/infection. - consider ear muffs at work in place of ear plugs. - Follow-up with your PCP in 3-5 days if symptoms have not improved or sooner if symptoms worsen - Discussed red flags and need for immediate medical evaluation if any occur. - Discussed supportive care treatment with fluids, rest and analgesia. - Discussed expected course of illness Tess White APRN.RAFI OWENSOV Observed: 03/17/2018 Status: COMPLETED Source: [place] 5:45 PM [facility] REPOSITORY Office Visit (WSTR) ANIVAL MOYA ([id number]) 1990 M Date Time Provider Department 03/17/18 5:45 PM TESS WHITE (RAFI) [facility] During your visit today, we recorded the following information about you: Temperature Pulse Respiration Blood pressure 98.1 degrees 76/minute 14/minute 120/74 Weight 79.8 kg Tess White APRN.RAFI 03/17/2018 7:33 PM Signed Subjective HPI Anival Moya is a 27 year old male who presents with right ear uncomfortable and feeling plugged. He used ear drops and an ear candle and a suction bulb and got a lot of wax out of it. He is having trouble hearing. He wears ear plugs at work daily. Review of Systems Constitutional: Negative. Negative for fever. HENT: Positive for ear pain and hearing loss. Negative for ear discharge and sore throat. Respiratory: Negative. Cardiovascular: Negative. Skin: Negative. BP 120/74 Pulse 76 Temp 36.7 ?C (98.1 ?F) (Left Tympanic) Resp 14 Wt 79.8 kg (176 lb) BMI 23.97 kg/m? No past medical history on file. PAST SURGICAL HISTORY Procedure Laterality Date - REMOVAL OF TONSILS,<12 Y/O Tonsillectomy ALLERGIES Patient has no known allergies. MEDICATIONS ibuprofen (MOTRIN) 800 mg tablet Take 1 tablet by mouth every 8 hours as needed for Pain (with food.). codeine-guaiFENesin (ROBITUSSIN AC) 10-100 mg/5 mL syrup Take 5-10 mL by mouth three times daily as needed for Cough or Cold/Allergy Symptoms. May cause drowsiness. FAMILY HISTORY Problem Relation Age of Onset - None Mother - None Father Social History Substance Use Topics - Smoking status: Never Smoker - Smokeless tobacco: Never Used - Alcohol use No Objective Physical Exam Constitutional: He is well-developed, well-nourished, and in no distress. HENT: Head: Normocephalic. Left Ear: Tympanic membrane, external ear and ear canal normal. Right ear: Cerumen impairs exam of clinically significant portions of the external auditory canal, tympanic membrane or middle ear condition. Eyes: Conjunctivae are normal. Right eye exhibits no discharge. Left eye exhibits no discharge. Cardiovascular: Normal rate. Pulmonary/Chest: Effort normal. Skin: Skin is warm and dry. Nursing note and vitals reviewed. ASSESSMENT/PLAN: 1. Impacted cerumen of right ear - ICD9: 380.4, ICD10: H61.21 -Cerumen removed via irrigation, patient tolerated procedure well. Post procedure ear canal is clear and TM is well visualized with bony landmarks intact and no sign of inflammation/infection. - consider ear muffs at work in place of ear plugs. - Follow-up with your PCP in 3-5 days if symptoms have not improved or sooner if symptoms worsen - Discussed red flags and need for immediate medical evaluation if any occur. - Discussed supportive care treatment with fluids, rest and analgesia. - Discussed expected course of illness Tess White APRN.STARCH COOKER Yaritza Escobar Ma 03/17/2018 6:06 PM Signed Ear lavage performed on the right ear with warm water/h202. Large amount of cerumen flushed from ear. TM is visible and intact post procedure. Patient tolerated procedure well and had no complaints during or after the procedure. Yaritza Escobar Ma Referring Provider: SELF [200] Allergies As of Date: 03/17/2018 (No Known Allergies) Date Reviewed: 03/17/2018 Reviewed by: Tess (Rafi) Cindy - Fully Assessed Reason for Visit: Ear Problem [38] Cmt: Right ear Primary Visit Diagnosis:Impacted cerumen of right ear [H61.21] Order(s):[facility] MGMT EAR WAX REMOVA [[id number]] Order #: [id number] Problem List As Of Date 03/17/2018 Noted Resolved SPRAIN OF ANKLE NOS [S93.409A] INVALID FOR* Visit Notes: >> Yaritza Escobar Ma TueMar 17, 2018 6:06 PM Status: Signed Ear lavage performed on the right ear with warm water/h202. Large amount of cerumen flushed from ear. TM is visible and intact post procedure. Patient tolerated procedure well and had no complaints during or after the procedure. Yaritza Escobar Ma Medications Discontinued During This Encounter ibuprofen (MOTRIN) 800 mg tablet 30 t* 0 03/22/2017 03/17/2018 Route: ORAL Sig: Take 1 tablet by mouth every 8 hours as needed for Pain (with food.). Disc: Reason for discontinue is not on file. codeine-guaiFENesin (ROBITUSSIN AC) * 90 mL 0 11/16/2016 03/17/2018 Class: Print RX Route: ORAL Sig: Take 5-10 mL by mouth three times daily as needed for Cough or Cold/Allergy Symptoms. May cause drowsiness. Disc: Reason for discontinue is not on file. Encounter Status:Closed by TESS WHITE on 03/17/18 DISCHARGE INSTRUCTION Observed: 02/23/2018 Status: F Source: [place] 4:51 PM [facility] REPOSITORY [facility] Medical Records Department [address] [place] [address] Discharge Instruction 02/23/181649 MR#: [id number] Acct: [id number] Name: ANIVAL MOYA Rep #: [id number] : 1990 27 From: Omar Higgins DO PCP: Care Physician, No Primary Status: PRE ER ED Disposition - Plan for ED Patient: Chief Complaint: Laceration Instructions: ED Laceration Ext Sutr Stap Tape, ED Contusion Lower Ext Referrals: Care Physician,No Primary [Primary Care Provider] - Lilian Toledo MD [STAFF PHYSICIAN] - 10 Day for suture removal What to do if you have Problems For any increased pain, shortness of breath, bleeding, nausea or vomiting, chest pain, or any unexpected problems, contact your Primary Care Provider. Call [facility] ([phone]) or report to the closest Emergency Room. Call 911 if necessary. 02/23/18 1651 <Electronically signed by Omar Higgins DO> Date Omar Higgins DO Cosigner Signature (If Indicated): Date CC: No Primary Care Physician EMERGENCY DEPARTMENT Observed: 02/23/2018 Status: F Source: [place] SUMMARY 4:50 PM [facility] REPOSITORY [facility] Medical Records Department [address] [place] [address] Emergency Department Summary 02/23/18 1647 MR#: [id number] Acct: [id number] Name: ANIVAL MOYA Rep #: [id number] : 1990 27 From: Omar Higgins DO PCP: Care Physician, No Primary Status: PRE ER - ER Visit Summary Date of Service: 02/23/18 Chief Complaint: [Laceration right long] History of Present Illness: The patient is a 27 M [presents the emergency department after sustaining a laceration to his right long while skateboarding. Patient states that he struck his logn against a rail causing it to split open. Patient able to bear weight but having pain with ambulation. Patient up-to-date on tetanus.] Physical Examination: [Right leg-there is a 2.5 cm vertical laceration over the mid long overlying the mid tibia. Patient does have some diffuse bony tenderness on exam. No active bleeding currently. Neurovascularly intact distally.] Test Results: [X-ray of the right tibia and fibula obtained showed no fractures] Emergency Department Course and Treatment: [Laceration repair- wound sterilely draped and prepped. Wound anesthetized locally with 1% lidocaine total 3 cc. Wound cleansed with Shur-Clens and irrigated with copious saline. Using 4-0 nylon a total of 3 single interrupted sutures placed with good wound edge approximation. Patient tolerated procedure well. Patient had a clean dressing applied.] Treatment Plan: [Suture removal in 10 days.] Disposition: [Discharged home in stable condition. Patient advised to return if worsening pain, redness, purulent drainage, or condition should worsen in any way.] Impression: [Laceration right leg 2.5 cm simple repair Contusion right leg] This note was generated with [employer] software. It may contain incorrect words, spelling, and punctuation that were not noted in review of the chart prior to signing ED Disposition - Plan for ED Patient: Chief Complaint: Laceration Referrals: Care Physician,No Primary [Primary Care Provider] - What to do if you have Problems For any increased pain, shortness of breath, bleeding, nausea or vomiting, chest pain, or any unexpected problems, contact your Primary Care Provider. Call [facility] ([phone]) or report to the closest Emergency Room. Call 911 if necessary. 02/23/18 1650 <Electronically signed by Omar Higgins DO> Date Omar Higgins DO Cosigner Signature (If Indicated): Date CC: No Primary Care Physician TIBIA AND FIBULA Observed: 02/23/2018 Status: F Source: [place] 2 VIEWS 4:33 PM [facility] REPOSITORY [facility] Imaging Services [address] [place] [address] Tibia AND Fibula 2 Views MR#: [id number] Acct: [id number] Name: ANIVAL MOYA Rep #: [id number] : 1990 M 27 From: Ronak Ac MD PCP: Care Physician, No Primary Status: [facility] ER Study: Tibia AND Fibula 2 Views Date of Exam: 02/23/18 Exam# [id number] Ordering Dr: Omar Higgins DO STUDY: X-RAY - RIGHT TIBIA AND FIBULA REASON FOR EXAM: Male, 27 years old. Fall with abrasions. TECHNIQUE: Frontal and lateral view(s) of the tibia and fibula were obtained. COMPARISON: None. FINDINGS: Normal visualized tibia. Normal visualized fibula. There is no demonstrated acute fracture. There is anterior soft tissue swelling. RAD/Tibia AND Fibula 2 Views IMPRESSION: No fracture seen. Electronically Signed: Ronak Ac MD at 17:25 EDT , Service support , CC: No Primary Care Physician; Omar Higgins DO Hand Mica Plate Layer: Signed ALLERGIES ALLERGIES DATE TYPE / CODE NAME / CODE REACTION SEVERITY SOURCE 09/13/2018 Drug No Known Unknown [facility] Allergy/416 Allergies/[id number] Hospital 804205(SNOM 0388(RXNORM) Repository ED CT) Drug NO KNOWN [facility] Class/55315 ALLERGIES Main Mio 1003(SNOMED Repository CT) ENCOUNTERS ENCOUNTERS ADMIT/DISCHARGE ACCOUNT NUMBER ADMITTING ENCOUNTER LOCATION SOURCE CLASS 09/14/2018 [id number] [address] [place] [address] 6WRoom: System [id number]: Repository [id number] 09/13/2018/09/13/20 [id number] Emergency [address] ding:ED Repository 04/05/2018/04/05/20 [id number] Ambulatory [address] ding:ENRoom: Repository AC05 03/17/2018/03/20/20 [id number] [address] Repository 02/23/2018/02/24/20 [id number] Emergency [address] ding:ED Repository PAYERS PAYERS ENCOUNTER GUARANTOR PAYER SUBSCRIBER SOURCE 09/14/2018 [facility]ival [facility] CarpenterDOB: Insurance:Self [place]: System [id number] [facility] Number: [id number] [facility] Effective Date: [place], [place] [address]Fiq: () 09/13/2018 ANIVAL A Primary NOT GIVENUNK Reji [id number] Insurance:SELF PAY [place], [place] Number: Effective Repository [id number]: (330) Date:2018-09-13 [phone] (CB) 04/05/2018 ANIVAL A Primary NOT GIVENUNK Reji [id number] Insurance:SELF PAY [facility] [place] [address]Gfq: Number: Effective Repository Date:2018-04-05 () 02/23/2018 ANIVAL A Primary NOT GIVENUNK [place] [id number] Insurance:SELF PAY [facility] [place] Repository [phone]: (330) Date:2018-02-23 [phone] ()
== END 2018-09-13 23:50 | disposition home or self-care (01) ==
LOC: ED 22:48
PROVIDERS: Emergency Provider Emergency Medicine
DX: T18.128A Food in esophagus causing other injury, initial encounter (principal); R51 Headache
CPT/HCPCS: 96361; 96374; 96375; 99285; J7030; A4216; J1610; J2405

== ENCOUNTER 2019-02-24 01:14 | Emergency (ER) | payer SELFPAY ==
[2019-02-24 01:15] VITALS: BP 155/91; PULSE 50; RESP 16; TEMP 36.8; O2SAT 98; BMI 23.1
[2019-02-24 01:19] VITALS: RESP 16
[2019-02-24] MEDS: Glucagon 1 MG/ML Syringe IV (01:54)
--- NOTE | 2019-02-24 03:14 | ED.DCSUM_ITS ---
- ER Visit Summary Date of Service: 02/24/19 Chief Complaint: Food stuck History of Present Illness: The patient is a 28 M who presents with food stuck in his esophagus. He has a history of prior esophageal impaction with EGD and balloon dilation. He was eating a [employer] steak sandwich about 3 to 4 hours ago when he developed an impaction. He was waiting to see if it would resolve on its own but when it did not presented here. Review of systems otherwise negative. Physical Examination: Afebrile vitals unremarkable Moist mucous membranes Heart regular rate and rhythm Lungs clear Abdomen soft Alert Test Results: Not indicated Emergency Department Course and Treatment: Patient was given IV glucagon which was unsuccessful. Given patient's prior history of stricture requiring balloon dilation I did feel he should be transferred to a facility with gastroenterology available. He has previously been seen at [facility] so was transferred to that facility. Treatment Plan: [] Disposition: Transfer Impression: Esophageal impaction This note was generated with [employer] dictation software. It may contain incorrect words, spelling, and punctuation that were not noted in review of the chart prior to signing ED Disposition - Plan for ED Patient: Referrals: Care Physician,No Primary [Primary Care Provider] -
[2019-02-24 03:22] VITALS: BP 142/89; PULSE 52; RESP 16; O2SAT 99
--- NOTE | 2019-02-24 03:27 | NURSING ---
ACCEPTED OT [facility] ER [phone] REPORT
== END 2019-02-24 03:26 | disposition short-term general hospital (02) ==
LOC: ED 01:44
PROVIDERS: Emergency Provider Emergency Medicine
DX: T18.120A Food in esophagus causing compression of trachea, initial encounter (principal); X58.XXXA Exposure to other specified factors, initial encounter; Y93.89 Activity, other specified; Y92.89 Other specified places as the place of occurrence of the external cause; Y99.9 Unspecified external cause status
CPT/HCPCS: 96374; 99284; A4216; J1610

== ENCOUNTER 2020-02-05 07:14 | Emergency (ER) | payer OTHER, SELFPAY ==
[2020-02-05 07:15] VITALS: BP 136/78; PULSE 84; RESP 18; TEMP 36.1; O2SAT 98; BMI 24.4
--- NOTE | 2020-02-05 07:29 | ED.RN ---
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
--- NOTE | 2020-02-05 07:31 | ED.VISSUMM ---
- ER Visit Summary Date of Service: 02/05/20 Chief Complaint: Left knee injury History of Present Illness: The patient is a 29 M presenting after a fall at work. Patient was standing on a palate and his foot went in between the boards of the palate and he slipped and fell through the palate. He did not hit his head or lose consciousness. He states he twisted his left knee. He has an abrasion to his left arm. He denies other injuries. His tetanus is up-to-date. Physical Examination: Vitals are stable. Patient is afebrile. Alert no acute distress. HEENT exam is unremarkable. Neck is nontender Lungs are clear and equal bilaterally. Heart is regular rate and rhythm. Abdomen is soft nontender nondistended. No guarding or rebound Extremities left medial and lateral knee tenderness with no significant effusion. Painful range of motion. Quadricep mechanism intact. Normal distal pulses. Mild abrasion left forearm. Skin is warm and dry. No focal neurologic deficit. Remainder of exam is unremarkable. Emergency Department Course and Treatment: Left knee and femur x-ray shows no acute process. Patient was advised to ice and elevate. He was given crutches. Advised to follow-up with [facility]. Patient was given prescription for Naprosyn. Advised to return to ED for worsening complaints. Disposition: Discharge home Impression: Left knee sprain, left arm abrasion, status post mechanical fall This note was generated with [employer] dictation software. It may contain incorrect words, spelling, and punctuation that were not noted in review of the chart prior to signing ED Disposition - Plan for ED Patient: Instructions: ED Sprain Knee Prescriptions: Naproxen [Naprosyn] 500 mg PO BID PRN #20 tab Prescription Printed Referrals: [facility] [GROUP OF PHYSICIANS] - Care Physician,No Primary [Primary Care Provider] -
--- NOTE | 2020-02-05 07:38 | RAD_ITS ---
STUDY: X-RAY - LEFT FEMUR REASON FOR STUDY: Male, 29 years old. Pt. Fell on a work site this morning, his leg went down through a pallet and then his leg bent outward TECHNIQUE: 4 view(s) of the femur. COMPARISON: None. FINDINGS: Normal visualized femur. Normal visualized soft tissue structure. RAD/Femur Min 2 Views IMPRESSION: Normal x-ray examination of the femur. Electronically Signed: Samuel Denise, at 8:03 EDT , Service support ,
--- NOTE | 2020-02-05 07:38 | RAD_ITS ---
STUDY: X-RAY - LEFT KNEE REASON FOR EXAM: Male, 29 years old. Pt. Fell on a work site this morning, his leg went down through a pallet and then his leg bent outward TECHNIQUE: 4 view(s) of the knee. COMPARISON: None. FINDINGS: Normal visualized distal femur. Normal visualized proximal tibia and fibula. Normal proximal tibiofibular articulation. Normal medial femorotibial compartment. Normal lateral femorotibial compartment. Normal patellofemoral articulation. The soft tissue structures are unremarkable. RAD/Knee 4 or More Views IMPRESSION: Normal x-ray examination of the knee. Electronically Signed: Samuel Denise, at 8:03 EDT , Service support ,
--- NOTE | 2020-02-05 08:13 | ED.DEP ---
ED Disposition - Plan for ED Patient: Instructions: ED Sprain Knee Prescriptions: Naproxen [Naprosyn] 500 mg PO BID PRN #20 tablet Referrals: Care Physician,No Primary [Primary Care Provider] - [facility]] -
== END 2020-02-05 08:36 | disposition home or self-care (01) ==
LOC: ED 08:19
PROVIDERS: Emergency Provider Emergency Medicine
DX: S40.812A Abrasion of left upper arm, initial encounter (principal); S83.92XA Sprain of unspecified site of left knee, initial encounter; W01.0XXA Fall on same level from slipping, tripping and stumbling without subsequent striking against object, initial encounter; Y99.0 Civilian activity done for income or pay
CPT/HCPCS: 73552; 73564; 99282

== ENCOUNTER 2021-05-26 00:05 | Emergency (ER) | payer BC, SELFPAY ==
[2021-05-26 00:07] VITALS: BP 143/78; PULSE 59; RESP 18; TEMP 36.1; O2SAT 99; BMI 25.0
--- NOTE | 2021-05-26 00:57 | US_ITS ---
STUDY: SCROTUM ULTRASOUND REASON FOR EXAM: Male, 31 years old patient with right-sided testicular pain TECHNIQUE: Ultrasound evaluation of the scrotum was performed with color Doppler and static jauregui-scale imaging. COMPARISON: Prior comparison studies are not available for review at this time. FINDINGS: RIGHT TESTICLE INTRATESTICULAR: There is a normal size of the right testicle. The right testicle measures 4.3 x 3.2 x 2.4 cm. There is a homogenous echotexture. There is normal arterial and normal venous vascularity. There is no demonstrated right testicular mass or cyst. EXTRATESTICULAR: The epididymis is normal in size. The epididymis head measures 9 x 10 mm. There is normal vascularity of the epididymis. There is no demonstrated epididymal cystic structure. There is no demonstrated hydrocele. There is no demonstrated varicocele. There is no demonstrated extratesticular mass or cyst. LEFT TESTICLE INTRATESTICULAR: There is a normal size of the left testicle. The left testicle measures 3.4 x 4.1 x 2.4 cm. There is a homogenous echotexture. There is normal arterial and normal venous vascularity. There is no demonstrated left testicular mass or cyst. EXTRATESTICULAR: The epididymis is normal in size. The epididymis head measures 10.2 x 6.6 mm. There is normal vascularity of the epididymis. There is no demonstrated epididymal cystic structure. There is no demonstrated hydrocele. There is no demonstrated varicocele. There is no demonstrated extratesticular mass or cyst. US/Testicular with Arterial Flow IMPRESSION: Normal bilateral testicles. Electronically Signed: Sarah Pena MD at 3:42 EDT , Service support ,
[2021-05-26] MEDS: HYDROcodone Bitartrate/Apap 5/325 Tablet PO (01:08)
[2021-05-26 03:33] LABS: Bacteria 0 SEEN /hpf (None Seen); Mucous, Urine 0 SEEN /hpf (<or=2+); Red Blood Cells-Urine 0 SEEN /hpf (0-5); Squamous Epithelial Cells - UA 0 SEEN /hpf (0-5); White Blood Cells 0 SEEN /hpf (0-5)
[2021-05-26 03:35] LABS: Color, Urine Yellow (Yellow); Glucose, Dipstick Normal (Normal); Ketone-Dipstick Negative (Negative); Leukocyte Esterase-Dipstick Negative /ul (Negative); Nitrite-Dipstick Negative (Negative); Occult Blood-Urine Negative /ul (Negative); Protein-Dipstick Negative (Negative); Urine Bilirubin Dipstick Negative (Negative); Urine Clarity Clear (Clear); Urine Urobilinogen Normal (Normal)
--- NOTE | 2021-05-26 03:48 | EX.ED.GUMALE ---
HPI History of Present Illness Chief Complaint: Male Pain/Injury Informant: patient Pain Onset: Today Context: Sudden Onset Timing: Waxes and wanes Current Severity: Mild Maximum Severity: Moderate Narrative Narrative: Patient present secondary to right testicular pain. Patient states he was just sitting at rest when an hour and a half prior to arrival he got sudden sharp pain in his right testicle. He states pain is improved at this time but is a constant ache. No difficulty urinating. He states he did injure his back a couple weeks ago at work and is not sure if this is related. He did some physical therapy and his back was improved after approximately 4 days. PFSH PFSH no medical history Home Medications NK 05/26/21 [History Last Taken Unknown] Allergy/AdvReac Type Severity Reaction Status Date / Time No Known Allergies Allergy Verified 05/26/21 00:06 Social History Smoking Status: Never smoker ROS ROS ED Constitutional Constitutional ED: Denies chills or fever(s) Eyes Eyes: Denies change in vision ENT ENT ED: Denies sore throat Cardiovascular Cardiovascular: Denies chest pain Respiratory/Chest Respiratory/Chest: Denies cough or dyspnea Gastrointestinal Gastrointestinal: Denies abdominal pain, diarrhea, nausea or vomiting Genitourinary Genitourinary ED: Reports other Details: Right testicular pain ; Denies dysuria or testicular swelling Musculoskeletal Musculoskeletal: Denies back pain Integumentary Denies rash Neurologic Neurologic: Denies headache(s) or weakness Psychiatric Psychiatric: Denies anxiety or depression Allergic/Immunologic Allergic/Immunologic ED: Denies urticaria EXAM Physical Exam Const Vital Signs: 05/26/21 00:07 Temperature 97.0 F L Temperature Source Temporal Pulse Rate 59 L Respiratory Rate 18 Blood Pressure 143/78 H Blood Pressure Mean 99 Pulse Ox 99 Oxygen Delivery Method Room Air Positive well nourished and well developed General Appearance ED: well developed HEENT Reports normocephalic and head/scalp atraumatic Eyes PERRL and EOMs intact bilaterally Neck supple Chest Wall inspection of chest normal and palpation of chest normal Resp normal respiratory effort and clear to auscultation bilaterally Cardio regular rate and regular rhythm GI normal to inspection, nondistended, normoactive bowel sounds Palpation: soft Scrotum: testes descended bilaterally Testes: testicular lie normal and testicular tenderness right; Negative for testicular swelling Back/Spine no CVA tenderness Extremity normal to inspection Neuro oriented x3 and no sensory deficits noted Sensorium / Orientation: alert Motor Exam: strength 5/5 throughout Psych mental status grossly normal Skin no rashes or lesions noted MDM MDM MDM Narrative Medical decision making narrative: Urinalysis and testicular ultrasound is ordered. Lab Data Attestation: I reviewed the patient's lab results. Labs: Laboratory Results - last 24 hr 05/26/21 03:25 Urine Color Yellow Urine Clarity Clear Urine pH 6.0 Ur Specific [place] 1.020 Urine Protein Negative Urine Glucose (UA) Normal Urine Ketones Negative Urine Occult Blood Negative Urine Nitrite Negative Urine Bilirubin Negative Urine Urobilinogen Normal Ur Leukocyte Esterase Negative Urine RBC 0 SEEN Urine WBC 0 SEEN Ur Squamous Epith Cells 0 SEEN Urine Bacteria 0 SEEN Urine Mucus 0 SEEN Radiography Diagnostic Testing: Radiology Impression Testicular Ultrasound 05/26/21 00:57 IMPRESSION: Normal bilateral testicles. Electronically Signed: Sarah Pena MD at 3:42 EDT , Service support , Treatment and Re-Evaluation Comments:: Patient is given 1 tab of [place] for pain control. Test results discussed with the patient. This time urinalysis is clean. Ultrasound of the testicles reveals no obvious source of patient's discomfort. Patient encouraged to continue anti-inflammatories and drink lots of fluid. We did discuss the possibility of a small kidney stone causing testicular pain. He will be referred to Dr. Falcon for follow-up if not improving, but was given return instructions for which to return to the emergency room as well. Discharge Plan Triage Chief Complaint: Male Pain/Injury ED Provider: Gela Billings Dx/Rx/DC Orders Clinical Impression: Pain in right testicle Instructions: ED Testicular Pain, Unclear Cause Prescriptions: No Action NK RF: 0 Primary Care Provider: Care Physician,No Primary Referrals: Uriah Falcon MD [STAFF PHYSICIAN] - As Needed Care Physician,No Primary [Primary Care Provider] - Disposition Disposition: Home, Self Care
[2021-05-26 04:20] VITALS: BP 110/78; PULSE 78; RESP 18; O2SAT 98
== END 2021-05-26 04:21 | disposition home or self-care (01) ==
PROVIDERS: Emergency Provider Emergency Medicine
DX: N50.811 Right testicular pain (principal)
CPT/HCPCS: 76870; 81001; 93976; 99283

== ENCOUNTER 2023-01-14 18:30 | Emergency (ER) | payer OTHER, SELFPAY ==
[2023-01-14 18:30] VITALS: BP 141/97; PULSE 61; RESP 16; TEMP 36.4; O2SAT 100; BMI 24.9
--- NOTE | 2023-01-14 18:57 | EKG12_ITS ---
Test Reason : DYSRHYTHMIA Blood Pressure : / mmHG Vent. Rate : 063 BPM Atrial Rate : 063 BPM P-R Int : 120 ms QRS Dur : 090 ms QT Int : 390 ms P-R-T Axes : 030 054 044 degrees QTc Int : 399 ms Normal sinus rhythm Normal ECG Confirmed by EVELINE GAONA, CAMPBELL ([id number]), editor greeting card ROGER KEMP ([id number]) on 01/17/2023 11:09:53 AM Referred By: COLLEEN Confirmed By:BONILLA MOSQUERA MD
--- NOTE | 2023-01-14 19:03 | EDS_ITS ---
HPI History of Present Illness Chief Complaint: Dizziness Informant: patient Narrative Narrative: Patient presents secondary to palpitations and shortness of breath. About 3 weeks ago he had an episode of palpitations and near syncope at work. He went to the ER at [facility]. Work-up at that time was unremarkable, however patient was placed on a 30-day environmental monitoring technician that he is still wearing at this time. He states the monitor was placed about 2 weeks ago. Over the past 2 days has had more frequent episodes of palpitations and he states when this happens he feels like he gets lightheaded and nauseated. Yesterday he had pain and throbbing sensation in the left side of his neck. [facility] Medical History (Updated 01/14/23 @ 20:[address] Gela Billings MD) Hx of gastroesophageal reflux (GERD) Home Medications NK 01/14/23 [History Last Taken Unknown] Allergy/AdvReac Type Severity Reaction Status Date / Time No Known Allergies Allergy Verified 12/07/22 07:37 Social History Smoking Status: Never smoker ROS ROS ED Constitutional Constitutional ED: Denies chills or fever(s) Eyes Eyes: Denies change in vision or discharge from eye(s) ENT ENT ED: Denies discharge from eye(s), rhinorrhea or sore throat Cardiovascular Cardiovascular: Reports chest pain, palpitations and racing heartbeat Respiratory/Chest Respiratory/Chest: Reports dyspnea; Denies cough Gastrointestinal Gastrointestinal: Reports nausea; Denies abdominal pain or vomiting Musculoskeletal Musculoskeletal: Denies back pain or extremity pain Integumentary Denies Abrasions or rash Neurologic Neurologic: Denies headache(s) or weakness Allergic/Immunologic Allergic/Immunologic ED: Denies lip swelling or urticaria EXAM Physical Exam Const Vital Signs: 01/14/23 18:30 01/14/23 18:54 Temperature 97.6 F L Temperature Source Temporal Pulse Rate 61 Respiratory Rate 16 Respiratory Effort Normal Non-Labored Respiratory Pattern Normal Blood Pressure 141/97 H Blood Pressure Mean 111 Pulse Ox 100 Oxygen Delivery Method Room Air Positive well nourished and well developed General Appearance ED: well developed HEENT Reports normocephalic and head/scalp atraumatic Eyes PERRL and EOMs intact bilaterally Neck supple Chest Wall inspection of chest normal and palpation of chest normal Resp normal respiratory effort and clear to auscultation bilaterally Cardio regular rate and regular rhythm GI normal to inspection, nondistended, normoactive bowel sounds Palpation: soft Extremity normal to inspection Neuro oriented x3 and no sensory deficits noted Sensorium / Orientation: alert Motor Exam: strength 5/5 throughout Psych Mood & Affect: anxious Skin no rashes or lesions noted MDM MDM MDM Narrative Medical decision making narrative: When I entered the room to see the patient he states he was having an episode right then. Patient was lying supine in the bed. He was not yet on a environmental monitoring technician. I auscultated his chest and felt his radial pulse. Heart rate was regular throughout the episode. With deep breathing his symptoms did improve. Patient is placed on environmental monitoring technician. EKG obtained to evaluate for cardiac arrhythmia/ischemia. Chest x-ray obtained to evaluate for acute lung pathology, cardiac size, or mediastinal abnormality. Labwork obtained to evaluate for leukocytosis, anemia, and electrolyte derangement. Lab Data Attestation: I reviewed the patient's lab results. Labs: Laboratory Results - last 24 hr 01/14/23 01/14/23 01/14/23 19:20 19:20 19:20 WBC 7.2 RBC 5.09 Hgb 15.4 Hct 44.7 MCV 87.8 MCH 30.3 MCHC 34.5 RDW Std Deviation 37.2 RDW Coeff of Jennifer 11.6 Plt Count 240 MPV 11.4 Immature Gran % (Auto) 0.300 Neut % (Auto) 56.3 Lymph % (Auto) 30.0 Treasure % (Auto) 6.8 Eos % (Auto) 5.2 H Baso % (Auto) 1.4 H Absolute Neuts (auto) 4.1 Absolute Lymphs (auto) 2.17 Nucleated RBC % 0 D-Dimer Quant (PE/DVT) < 0.27 L Sodium 137 Potassium 3.8 Chloride 105 Carbon Dioxide 26.0 Anion Gap 6 BUN 13 Creatinine 1.10 Estim Creat Clear Calc 107.78 Est GFR (MDRD) Af Amer 101 Est GFR (MDRD) Non-Af 83 BUN/Creatinine Ratio 11.8 Glucose 111 H Calcium 9.3 Total Bilirubin 0.60 Direct Bilirubin 0.14 AST 22 ALT 43 Alkaline Phosphatase 66 Troponin I High Sens 4 Total Protein 7.1 Albumin 4.0 Globulin 3.1 TSH 1.26 Radiography Chest X-Ray - ED: 1 View, Read by ED Physician, Normal, Heart, Lungs and Mediastinum Diagnostic Testing: Clinical Impression(s) from Imaging Studies Chest X-Ray 01/14/23 19:15 IMPRESSION: 1. No evidence of acute cardiopulmonary process Electronically Signed: Marcio Alvarez MD at 19:29 EDT , EKG Initial EKG: Attestation: I personally reviewed and interpreted this EKG as follows: Interpretation: Sinus Rhythm (Sinus at 63 with no acute ischemia) Treatment and Re-Evaluation :: CBC is unremarkable. Chemistry studies and LFTs normal. Troponin and D-dimer are both negative. TSH is normal. EKG is sinus with no acute ischemia. Normal intervals noted. Chest x-ray per my interpretation reveals no acute findings. I did review the environmental monitoring technician from the entire time of his visit. I see no evidence of arrhythmias. Patient states he may have had 1 small episode while he has been here since I initially evaluated him, but overall he feels significantly improved. He states he is starting to question whether he may be having panic attacks when he starts to feel funny because at first episode when he had a near syncopal episode was so frightening to him. I reassured him at this time everything looks okay. I recommended he get a watch or an leena on his phone where he can check his heart rate to at least reassure him when these episodes are happening. He is also welcome to return anytime to be rechecked. He voices understanding and agreement. Discharge Plan Triage Chief Complaint: Dizziness ED Provider: Gela Billings Dx/Rx/DC Orders Clinical Impression: Palpitations Instructions: ED Palpitations Prescriptions: No Action NK Primary Care Provider: Care Physician,No Primary Referrals: Care Physician,No Primary [Primary Care Provider] - Activity Restrictions/Additional Instructions: Follow-up with the specialist at [place] that you are scheduled to see. Disposition Disposition: Home, Self Care
--- NOTE | 2023-01-14 19:15 | RAD_ITS ---
INDICATION: pain EXAMINATION/TECHNIQUE: X-RAY - XR Chest 1 View COMPARISON: 08/07/1948 FINDINGS: LIFE-SUPPORT AND LINES: 1. No life-support noted. 2. Monitoring device projects over the mid chest HEART AND VESSELS: The cardiac silhouette, pulmonary vasculature have normal appearance. No evidence of congestive failure. LUNGS AND PLEURAL SPACES: Lungs are clear. No focal infiltrate, consolidation or effusions. No evidence of pneumothorax. No pulmonary mass is noted. MEDIASTINUM AND HILAR REGIONS: No masses adenopathy noted. No areas of calcification. Visualized upper airway is normal in position. BONY ELEMENTS: No acute bony changes noted. OTHER: Skin piercing noted bilaterally. RAD/Chest 1 View (Portable) IMPRESSION: 1. No evidence of acute cardiopulmonary process Electronically Signed: Marcio Alvarez MD at 19:29 EDT ,
[2023-01-14] MEDS: 0.9% Normal Saline 1,000 ML 150 ML IV (19:23)
[2023-01-14 19:31] LABS: Absolute Lymphocyte Count 2.17 X10^3/uL (0.83-4.51); Absolute Neutrophil Count 4.1 X10^3/uL (2.0-7.7); Basophil% 1.4 % (0-1); Eosinophil# 0.38 X10^3/uL; Eosinophils% 5.2 % (0-5); Hematocrit 44.7 % (40-54); Hemoglobin 15.4 g/dL (13.0-16.5); Lymphocyte # 2.17 X10^3/ul (0.83-4.51); Mean Corp Hgb Conc 34.5 g/dL (32-36); Mean Corpuscular Hgb 30.3 pg (27.0-32.0); Mean Corpuscular Volume 87.8 fL (80-94); Mean Platelet Vol. 11.4 fl (6.2-12.0); Monocyte# 0.49 X10^3/uL; Monocyte% 6.8 % (0-10); NRBC Flagged by Analyzer 0 % (0-5); Neutrophil # 4.08 X10^3/uL (2.7-7.7); Neutrophil % 56.3 % (47-70); Platelet Count 240 K/mm3 (150-450); RBC Distribution Width CV 11.6 % (11.6-14.6); RBC Distribution Width SD 37.2 fl (35.1-43.9); Red Blood Count 5.09 M/mm3 (4.6-6.2); White Blood Count 7.2 K/mm3 (4.4-11.0)
[2023-01-14 19:56] LABS: D-Dimer Quantitative (DVT/PE) < 0.27 FEU/ug/m (0.27-0.49)
[2023-01-14 19:57] LABS: AST(SGOT) 22 U/L (15-37); Alanine Aminotransfer ALT/SGPT 43 U/L (16-61); Alkaline Phosphatase 66 U/L (45-117); Anion Gap 6 (5-15); BUN 13 mg/dL (7-18); BUN/Creat Ratio 11.8 RATIO (10-20); Bilirubin, Direct 0.14 mg/dL (0.00-0.30); Calcium,Total 9.3 mg/dL (8.5-10.1); Chloride 105 mmol/L (98-107); EST Glomerular Filtration Rate 83 mL/min (>60); Est Glom Filt Rate - Afr Amer 101 mL/min (>60); Estimated Creatinine Clearance 107.78 ml/min; Globulin 3.1 g/dL (2.2-4.2); Glucose 111 mg/dL (74-106); Potassium 3.8 mmol/L (3.5-5.1); Protein, Total 7.1 g/dL (6.4-8.2); Sodium Level 137 mmol/L (136-145); Thyroid Stim Hormone (TSH) 1.26 uIU/mL (0.358-3.74); Troponin-I HS 4 pg/mL (3.0-78.0)
[2023-01-14 20:28] VITALS: PULSE 97; RESP 18; O2SAT 97
== END 2023-01-14 20:29 | disposition home or self-care (01) ==
PROVIDERS: Emergency Provider Emergency Medicine; Visit Provider Emergency Medicine
DX: R00.2 Palpitations (principal)
CPT/HCPCS: 71045; 80048; 80076; 84443; 84484; 85025; 85379; 93005; 96360; 99283; J7030; A4216

== ENCOUNTER 2023-01-28 07:25 | Emergency (ER) | payer OTHER, SELFPAY ==
[2023-01-28 07:27] VITALS: BP 144/115; PULSE 72; RESP 18; TEMP 36.1; O2SAT 97; BMI 25.0
--- NOTE | 2023-01-28 07:51 | RAD_ITS ---
STUDY: X-RAY - CERVICAL SPINE REASON FOR EXAM: Male, 32 years old. LUE radiculopathy TECHNIQUE: 6 view(s) of the cervical spine were obtained. COMPARISON: None FINDINGS: Normal anterior atlantoaxial articulation. Normal odontoid process. There is straightening of the normal cervical lordosis, which may be positional. Normal vertebral bodies and endplates. Normal disc space heights. Normal visualized intervertebral neuroforamina. The soft tissue structures are unremarkable. RAD/Cerv Spine 4 or 5 Views IMPRESSION: Normal x-ray examination of the visualized cervical spine. Electronically Signed: Indra Apple MD at 8:24 EDT ,
--- NOTE | 2023-01-28 07:54 | EX.ED.DYSGE1 ---
HPI History of Present Illness Chief Complaint: Numb/Ting Informant: patient Narrative Narrative: Patient woke up 3 hours ago with discomfort in the left side of his neck and painful tingling down the inside of his left upper extremity into the fingers, involving fingers 3-5. He does have sensation but it is altered. He denies any weakness. He denies any injury or recent illness. He states that he often plays disc golf, he is right-hand dominant, but he denies any major injuries or what felt like overuse regarding this recently, and he did not specifically work out his neck, lift weights at the gym, or anything else that could be related to this that he can think of. He denies any leg weakness, problems urinating or having bowel movements, vision problems, or trouble speaking. No headache. He currently is wearing a 30-day event monitor that is due to be turned in tomorrow after having what sounds like a near syncopal episode and the sensation like his heart paused prior to being fitted with the monitor. He denies any chest symptoms this morning. He initially went to urgent care this morning but when he told them about his left upper extremity tingling and his possible cardiac event, they referred him to the ER. This is according to the patient only. [facility] Medical History Hx of gastroesophageal reflux (GERD) Home Medications buspirone 5 mg tablet 5 mg PO DAILY 01/28/23 [History Last Taken Unknown] naproxen 500 mg tablet (Naprosyn) 500 mg PO BID pain #20 tabs 01/28/23 [Rx Last Taken Unknown] Allergy/AdvReac Type Severity Reaction Status Date / Time No Known Allergies Allergy Verified 01/28/23 07:29 Social History Smoking Status: Never smoker ROS ROS ED Constitutional Constitutional ED: Denies chills or fever(s) Eyes Eyes: Denies change in vision or diplopia ENT ENT ED: Denies rhinorrhea or sore throat Cardiovascular Cardiovascular: Denies chest pain or palpitations Respiratory/Chest Respiratory/Chest: Denies cough or dyspnea Gastrointestinal Gastrointestinal: Denies abdominal pain, diarrhea, nausea or vomiting Genitourinary Genitourinary ED: Denies dysuria or hematuria Musculoskeletal Musculoskeletal: Reports neck pain; Denies back pain Integumentary Denies abscess or rash Neurologic Neurologic: Reports as per HPI and paresthesias LUE (Dysesthesias); Denies abnormal speech, confusion, convulsions, disequilibrium, dizziness, headache(s) or weakness Psychiatric Psychiatric: Denies anxiety or suicidal thoughts EXAM Physical Exam Const Vital Signs: 01/28/23 07:27 Temperature 96.9 F L Temperature Source Temporal Pulse Rate 72 Respiratory Rate 18 Blood Pressure 144/115 H Blood Pressure Mean 124 Pulse Ox 97 Oxygen Delivery Method Room Air Positive well nourished and well developed General Appearance ED: well developed and NAD HEENT Reports moist mucous membranes normocephalic and atraumatic Eyes PERRL and EOMs intact bilaterally Neck full ROM and supple Chest Wall inspection of chest normal and palpation of chest normal Resp normal respiratory effort and clear to auscultation bilaterally Cardio regular rate, regular rhythm and no murmurs Rate: Negative for bradycardia or tachycardic GI non-tender and non-distended Auscultation: normoactive bowel sounds Palpation: soft Back/Spine no CVA tenderness General Back: other FROM Extremity normal to inspection General Extremety ED: Negative for edema, pulses abnormal or tenderness General Extremity: Negative for edema or pulses abnormal Neuro oriented x3, CN's II-XII intact bilaterally and no sensory deficits noted Neuro Narrative: No gross sensory deficits, but patient has altered sensation almost exactly at the C8 dermatome of the left upper extremity. The entire fingers 4 and 5 are involved, and partly the ulnar aspect of finger 3, but the index and thumb are normal. The altered sensation also extends in the strip along the upper back toward but not crossing the midline. Normal strength. Normal reflexes. Sensorium / Orientation: awake and alert Motor Exam: strength 5/5 throughout Psych mental status grossly normal Skin no rashes or lesions noted and no wounds MDM MDM MDM Narrative Medical decision making narrative: I think this is a cervical radiculopathy. I performed temporary manual traction on his cervical spine with him sitting upright in bed, and it relieved the dysesthesias in his left upper extremity temporarily. When I let go, he states that suddenly came back, all consistent with cervical radiculopathy. I sent him for cervical spine x-rays. 5 views of my interpretation are negative for nothing acute, including fracture, subluxation. Radiology in agreement. I am going to put him on NSAIDs and have him follow-up. Radiography Diagnostic Testing: Clinical Impression(s) from Imaging Studies Cervical Spine X-Ray 01/28/23 07:51 IMPRESSION: Normal x-ray examination of the visualized cervical spine. Electronically Signed: Indra Apple MD at 8:24 EDT Reading Location ID and State: [address] [place] [address] , Service support , Discharge Plan Triage Chief Complaint: Numb/Ting ED Provider: Ronak Burroughs Dx/Rx/DC Orders Clinical Impression: Cervical radiculopathy at C8 Instructions: Radiculopathy Cervical Prescriptions: New naproxen [Naprosyn] 500 mg tablet 500 mg PO BID Qty: 20 0RF No Action buspirone 5 mg tablet 5 mg PO DAILY Label Comments: TAKE 1 TABLET BY MOUTH THREE TIMES DAILY NEEDED Primary Care Provider: Lamar Santamaria NP Referrals: Lamar Santamaria NP, [employer] [Primary Care Provider] - 1 Week if not improving Disposition Disposition: Home, Self Care
[2023-01-28 08:32] VITALS: RESP 14
== END 2023-01-28 08:33 | disposition home or self-care (01) ==
PROVIDERS: Emergency Provider Emergency Medicine; PCP Internal Medicine; Visit Provider Emergency Medicine
DX: M54.12 Radiculopathy, cervical region (principal); K21.9 Gastro-esophageal reflux disease without esophagitis
CPT/HCPCS: 72050; 99282

== ENCOUNTER 2023-04-18 18:40 | Emergency (ER) | payer BC, SELFPAY ==
[2023-04-18 18:41] VITALS: BP 154/107; PULSE 68; RESP 16; TEMP 36.8; O2SAT 100; BMI 24.3
--- NOTE | 2023-04-18 18:54 | EDS_ITS ---
HPI History of Present Illness Chief Complaint: Headache [facility] Medical History Hx of gastroesophageal reflux (GERD) Home Medications buspirone 5 mg tablet 5 mg PO DAILY 01/28/23 [History Last Taken Unknown] naproxen 500 mg tablet (Naprosyn) 500 mg PO BID pain #20 tabs 01/28/23 [Rx Last Taken Unknown] omeprazole 40 mg capsule,delayed release 40 mg PO DAILY 04/18/23 [History Last Taken Unknown] Allergy/AdvReac Type Severity Reaction Status Date / Time No Known Allergies Allergy Verified 04/18/23 18:41 Social History Smoking Status: Never smoker EXAM Physical Exam Const Vital Signs: 04/18/23 18:41 04/18/23 19:46 04/18/23 20:02 Temperature 98.2 F Temperature Source Temporal Pulse Rate 68 65 Respiratory Rate 16 14 Blood Pressure 154/107 H 141/95 H Blood Pressure Mean 122 110 Pulse Ox 100 97 Oxygen Delivery Method Room Air Room Air Oxygen Flow Rate (L/min) 99 MDM MDM MDM Narrative Medical decision making narrative: HISTORY OF PRESENT ILLNESS: 33-year-old male here for chest pain. States this started proxy 1 hour prior to arrival and is left-sided he notes it radiates to his neck and he noted tingling in his left ear. Symptoms were not exertional. He denies any cough. He denies any recent volume loss such as vomiting or diarrhea. Denies any bleeding diathesis. He denies any headache at this time. Patient denies sudden onset or thunderclap headache, denies maximal intensity within 1 minute, vomiting, neck pain or stiffness, changes in vision, fever, history malignancy, syncope, seizures. The patient denies recent surgery in the last 4 weeks or immobilization in the last 3 days, denies previous diagnosis of DVT or PE, hemoptysis, unilateral leg swelling or malignancy with treatment the last 6 months. No estrogen use noted. Patient denies sudden onset of pain, no tearing sensation, no migratory symptoms, no new numbness, weakness or loss of sensation. Patient denies family history or personal history of Marfan syndrome or Martha-Danlos REVIEW OF SYSTEMS: Pertinent positives: Chest pain Pertinent negatives: Syncope, shortness of breath PHYSICAL EXAM: Nursing triage notes reviewed, Vital signs reviewed Constitutional: please see mdm HENT: MMM Eyes: Pupils equal round and reactive to light, Extraocular muscles intact Neck: No stridor, no JVD, full neck ROM Lungs: Clear to auscultation, No wheezing or rales. No increased work of breathing, no conversational dyspnea, no accessory muscle use, no nasal flaring. No respiratory distress noted Heart: Regular rate and rhythm, No murmurs, No rubs and No gallops, 2+ distal pulses (radial, femoral, posterior tibial) in all extremities Abdomen: Soft, there is no tenderness, rigidity, rebound or guarding, no obvious peritoneal signs, no palpable pulsatile abdominal masses, no auscultated abdominal bruit : No CVAT Extremities: No edema Neuro: No focal neurological deficits, cranial nerves II through XII intact, 5/5 strength in all extremities. Intact sensation to light touch in all extremities, 2+ reflexes bilateral patella tendons. Normal gait. No ataxia. Skin: No rash or lesions noted MEDICAL DECISION MAKING: Chief Complaint: Chest pain External records reviewed: No recent cardiac catheterizations, stress test or echocardiograms noted in the chart Factors affecting care: none Social determinants of health: Patient denies cocaine or methamphetamine History obtained from others: The patient significant other Consults: none ALL IMAGES (IF OBTAINED) HAVE BEEN PERSONALLY REVIEWED AND INTERPRETED BY MYSELF. Troponin is negative, no evidence of myocardial ischemia, delta troponin is also negative CBC without leukocytosis, severe anemia, no thrombocytopenia. BMP without evidence of significant electrolyte abnormalities, no anion gap, no acute kidney injury. [facility] Narrative: [The patient was hemodynamically stable, afebrile, nontoxic-appearing. No focal neurologic deficits, there were no pulse deficits stigmata of dissection. I considered the following differential diagnosis: Arrhythmia, ACS, PE, dissection, pneumonia, pneumothorax I obtained a broad lab and imaging work-up to further elucidate the etiology of the patient's complaints. I considered pulmonary embolism however the patient was not tachycardic, had a low risk Wells score and was PERC negative. Below suspicion for PE at this time. I also considered aortic dissection however the patient no pulse deficits, severe blood pressure abnormalities, family history of such as Martha-Danlos or Marfan syndrome. Have low suspicion for aortic dissection at this time and as such there is no indication for advanced imaging testing such as a CT scan of the chest. Labs are unremarkable for myocardial ischemia anemia or electrode abnormalities. X-ray was negative. Repeat troponin was negative as well. Limiting etiology to ascertain. Patient appropriate discharge home I completed a HEART Score to screen for Major Adverse Cardiac Event (MACE) in this patient. The evidence indicates that the patient is very low risk for MACE and this is consistent with my clinical intuition. The risk of further workup or hospitalization for MACE is likely higher than the risk of the patient having a MACE. It is, therefore, in the patient?s best interest not to do additional emergent testing or to be hospitalized for MACE at this time. Shared Decision-Making No hospitalization indicated I have discussed with the patient my clinical impression and the result of the HEART Score to screen for MACE, as well as the risks of further testing and hospitalization. The HEART Score shows that the risk for MACE is less than 1%. Although the risk of MACE has not been completely eliminated, the risks of further testing or hospitalization for MACE likely exceed any potential benefit, and the patient agrees with not pursuing further emergent evaluation or hospitalization for MACE at this time. The patient and/or family, caregivers express understanding. The patient and/or family, caregivers agrees with the plan. Total critical care time today provided was at least 0 minutes. This excludes separately billable procedures. Critical care time (if documented) is secondary to the patient having high probability of clinically significant/life threatening deterioration in the patient's condition which required my urgent intervention. Shared decision making: I will have a discussion with the patient and or visitors regarding risk/benefits of further testing or admission. They will be made aware of of the risk/benefits inherent in this decision they will be given the opportunity to voice understanding. Lab Data Attestation: I reviewed the patient's lab results. Labs: Laboratory Results - last 24 hr 04/18/23 19:45 WBC 6.3 RBC 5.13 Hgb 15.4 Hct 45.8 MCV 89.3 MCH 30.0 MCHC 33.6 RDW Std Deviation 37.2 RDW Coeff of Jennifer 11.4 L Plt Count 200 MPV 11.9 Immature Gran % (Auto) 0.300 Neut % (Auto) 55.6 Lymph % (Auto) 32.5 [place] % (Auto) 6.8 Eos % (Auto) 3.8 Baso % (Auto) 1.0 Absolute Neuts (auto) 3.5 Absolute Lymphs (auto) 2.04 Nucleated RBC % 0 Sodium 136 Potassium 3.9 Chloride 104 Carbon Dioxide 28.0 Anion Gap 4 L BUN 14 Creatinine 1.07 Estim Creat Clear Calc 109.79 Est GFR (MDRD) Af Amer 104 Est GFR (MDRD) Non-Af 86 BUN/Creatinine Ratio 13.1 Glucose 95 Calcium 9.0 Troponin I High Sens 4 Radiography Chest X-Ray - ED: Read by ED Physician Diagnostic Testing: Clinical Impression(s) from Imaging Studies Chest X-Ray 04/18/23 19:56 IMPRESSION: 1. No evidence of acute cardiopulmonary process Electronically Signed: Marcio Alvarez MD at 20:28 EDT , I have personally reviewed the patient's chest x-ray. Chest x-ray is unremarkable for pulmonary edema, pneumothorax, pneumonia or focal cardiopulmonary abnormality. Discharge Plan Triage Chief Complaint: Headache ED Provider: Chava Delaney Dx/Rx/DC Orders Clinical Impression: Chest pain Instructions: ED Chest Pain, Uncertain Cause Prescriptions: No Action buspirone 5 mg tablet 5 mg PO DAILY Patient Comments: TAKE 1 TABLET BY MOUTH THREE TIMES DAILY NEEDED naproxen [Naprosyn] 500 mg tablet 500 mg PO BID Qty: 20 0RF omeprazole 40 mg capsule,delayed release(DR/EC) 40 mg PO DAILY Patient Comments: TAKE 1 CAPSULE BY MOUTH ONCE DAILY Primary Care Provider: Lamar Santamaria NP Referrals: Lamar Santamaria NP, [employer] [Primary Care Provider] - Activity Restrictions/Additional Instructions: Thank you for trusting us with your care today! Please take Tylenol (2 pills, 650 mg), ibuprofen (2 pills, 400 mg) every 6 hours as needed for pain and fever control. Please return to the emergency department if your symptoms change or worsen. Specifically if you lose consciousness, develop worsening chest pain, shortness of breath, focal loss of sensation or weakness. Please follow with your primary care physician for further outpatient evaluation and management. Disposition Disposition: Home, Self Care
--- NOTE | 2023-04-18 19:29 | EKG12_ITS ---
Test Reason : DYSRHYTHMIA Blood Pressure : / mmHG Vent. Rate : 055 BPM Atrial Rate : 055 BPM P-R Int : 122 ms QRS Dur : 092 ms QT Int : 410 ms P-R-T Axes : 027 049 046 degrees QTc Int : 392 ms Sinus bradycardia Otherwise normal ECG Confirmed by EVELINE GAONA, CAMPBELL ([id number]), commissioning editor CHRIS ESTRADA ([id number]) on 04/20/2023 11:31:42 AM Referred By: JO Confirmed By:BONILLA MOSQUERA MD
[2023-04-18] MEDS: Aspirin 81 MG TAB.CHEW 324 MG PO (19:45)
--- NOTE | 2023-04-18 19:56 | RAD_ITS ---
INDICATION: chest pain EXAMINATION/TECHNIQUE: X-RAY - XR Chest 1 View COMPARISON: 01/14/2023 FINDINGS: LIFE-SUPPORT AND LINES: 1. None HEART AND VESSELS: The cardiac silhouette, pulmonary vasculature have normal appearance. No evidence of congestive failure. LUNGS AND PLEURAL SPACES: Lungs are clear. No focal infiltrate, consolidation or effusions. No evidence of pneumothorax. No pulmonary mass is noted. MEDIASTINUM AND HILAR REGIONS: No masses adenopathy noted. No areas of calcification. Visualized upper airway is normal in position. BONY ELEMENTS: No acute bony changes noted. RAD/Chest 1 View (Portable) IMPRESSION: 1. No evidence of acute cardiopulmonary process Electronically Signed: Marcio Alvarez MD at 20:28 EDT ,
[2023-04-18 19:59] LABS: Absolute Lymphocyte Count 2.04 X10^3/uL (0.83-4.51); Absolute Neutrophil Count 3.5 X10^3/uL (2.0-7.7); Basophil# 0.06 X10^3/uL; Eosinophil# 0.24 X10^3/uL; Eosinophils% 3.8 % (0-5); Hematocrit 45.8 % (40-54); Hemoglobin 15.4 g/dL (13.0-16.5); Lymphocyte # 2.04 X10^3/ul (0.83-4.51); Lymphocyte % 32.5 % (19-41); Mean Corp Hgb Conc 33.6 g/dL (32-36); Mean Corpuscular Volume 89.3 fL (80-94); Mean Platelet Vol. 11.9 fl (6.2-12.0); Monocyte# 0.43 X10^3/uL; Monocyte% 6.8 % (0-10); NRBC Flagged by Analyzer 0 % (0-5); Neutrophil # 3.49 X10^3/uL (2.7-7.7); Neutrophil % 55.6 % (47-70); Platelet Count 200 K/mm3 (150-450); RBC Distribution Width CV 11.4 % (11.6-14.6); RBC Distribution Width SD 37.2 fl (35.1-43.9); Red Blood Count 5.13 M/mm3 (4.6-6.2); White Blood Count 6.3 K/mm3 (4.4-11.0)
[2023-04-18 20:02] VITALS: BP 141/95; PULSE 65; RESP 14; O2SAT 97
[2023-04-18 20:17] LABS: Anion Gap 4 (5-15); BUN 14 mg/dL (7-18); BUN/Creat Ratio 13.1 RATIO (10-20); Chloride 104 mmol/L (98-107); Creatinine, Serum 1.07 mg/dL (0.70-1.30); EST Glomerular Filtration Rate 86 mL/min (>60); Est Glom Filt Rate - Afr Amer 104 mL/min (>60); Estimated Creatinine Clearance 109.79 ml/min; Glucose 95 mg/dL (74-106); Potassium 3.9 mmol/L (3.5-5.1); Sodium Level 136 mmol/L (136-145); Troponin-I HS (w/2H Reflex) 4 pg/mL (3.0-78.0)
[2023-04-18 21:52] LABS: Reflex Troponin-HS? (from REC) Y
[2023-04-18 22:23] VITALS: BP 121/76; PULSE 59; RESP 16; TEMP 36.6; O2SAT 99
[2023-04-18 23:19] LABS: Troponin-I HS 5 pg/mL (3.0-78.0)
== END 2023-04-18 22:24 | disposition home or self-care (01) ==
PROVIDERS: Emergency Provider Emergency Medicine; PCP Internal Medicine; Visit Provider Emergency Medicine
DX: R07.9 Chest pain, unspecified (principal); K21.9 Gastro-esophageal reflux disease without esophagitis; Z79.899 Other long term (current) drug therapy
CPT/HCPCS: 71045; 80048; 84484; 85025; 93005; 99285; A4216

== ENCOUNTER 2023-12-23 11:21 | Emergency (ER) | payer BC, SELFPAY ==
[2023-12-23 11:22] VITALS: BP 151/102; PULSE 54; RESP 16; TEMP 36.3; O2SAT 98; BMI 23.3
--- NOTE | 2023-12-23 11:49 | EDS_ITS ---
HPI History of Present Illness Chief Complaint: Upper Extremity Injury Informant: patient Narrative Narrative: Worsening upper back pain since yesterday evening, pain worse with movement. Denies trauma. 3 weeks ago waking with neck pain bilaterally saw his PCP nancy dwyer to chiropractor has been seeing them. Currently on muscle relaxer and gabapentin. Last adjustment by chiropractor was 4 days ago. They worked his upper back and his neck. [facility] Medical History Hx of gastroesophageal reflux (GERD) Home Medications buspirone 5 mg tablet 5 mg PO DAILY 01/28/23 [History Last Taken Unknown] naproxen 500 mg tablet (Naprosyn) 500 mg PO BID pain #20 tabs 01/28/23 [Rx Last Taken Unknown] omeprazole 40 mg capsule,delayed release 40 mg PO DAILY 04/18/23 [History Last Taken Unknown] ibuprofen 600 mg tablet 600 mg PO Q6H PRN PRN pain #20 TABLETS 12/23/23 [Rx Last Taken Unknown] Allergy/AdvReac Type Severity Reaction Status Date / Time No Known Allergies Allergy Verified 12/23/23 11:24 Social History Smoking Status: Never smoker ROS ROS ED Constitutional Constitutional ED: Denies chills, fever(s) or sweats Eyes Eyes: Denies change in vision ENT ENT ED: Denies dysphagia or sore throat Cardiovascular Cardiovascular: Denies chest pain, leg edema, palpitations or racing heartbeat Respiratory/Chest Respiratory/Chest: Denies cough, dyspnea or dyspnea on exertion Gastrointestinal Gastrointestinal: Denies abdominal pain, diarrhea, nausea or vomiting Genitourinary Genitourinary ED: Denies dysuria, hematuria or urinary frequency Musculoskeletal Musculoskeletal: Reports back pain; Denies extremity pain or neck pain Integumentary Denies rash or wounds Neurologic Neurologic: Denies headache(s), paresthesias or weakness EXAM Physical Exam Const Vital Signs: 12/23/23 11:22 Temperature 97.4 F L Temperature Source Temporal Pulse Rate 54 L Respiratory Rate 16 Blood Pressure 151/102 H Blood Pressure Mean 118 Pulse Ox 98 Oxygen Delivery Method Room Air Positive well nourished and well developed General Appearance ED: well developed and NAD HEENT Reports moist mucous membranes normocephalic and atraumatic Eyes PERRL, EOMs intact bilaterally and conjunctivae normal General Eye ED: Yes normal appearance of both eyes Neck no lymphadenopathy and supple General: Negative for tenderness Chest Wall Chest: Negative for tenderness Resp normal respiratory effort and normal air movement Effort and Inspection: symmetric chest movement; Negative for respiratory distress Cardio regular rate, regular rhythm and no murmurs Peripheral Pulses: pulses 2+ throughout GI normal to inspection, nondistended, normoactive bowel sounds and non-tender Palpation: Negative for guarding or rebound tenderness present Back/Spine no CVA tenderness Back/Spine Narrative: Somatic function palpated upper thoracic sidebent, rotated to the right T1-T4. Reproducible. No midline pain. Extremity normal to inspection General Extremety ED: Negative for edema or tenderness General Extremity: Negative for edema Neuro oriented x3 and no sensory deficits noted Sensorium / Orientation: awake and alert Skin no rashes or lesions noted and no wounds MDM MDM MDM Narrative Medical decision making narrative: Interventions / MDM: Differential diagnosis: Somatic dysfunction thoracic spine, thoracic strain Diagnosis considered but do not suspect: N/A My EKG interpretation: N/A Imaging independently reviewed and interpreted by myself: N/A External documents reviewed: N/A Test considered but not ordered:N/A ED course: patient reducible somatic dysfunction upper thoracic causing pain With movement. Discussed HVLA which she agreed performed with improved movement. Added ibuprofen to his regimen. Outpatient follow-up with his PCP and chiropractor. Procedure note: Verbal consent. Patient standing upright bedside, arms were crossed, upper thoracic isolated, HVLA performed with improvement of the motion and symptoms. Patient tolerated procedure well. Re-evaluation: stable Disposition discussed with patient/family/significant other: Patient Case discussed with consulting clinician: N/A This note was generated with [employer] dictation software. It may contain incorrect words, spelling, and punctuation that were not noted in checking the note before signing. Discharge Plan Triage Chief Complaint: Upper Extremity Injury ED Provider: Blaze Paz Dx/Rx/DC Orders Clinical Impression: Pain, upper back, Somatic dysfunction of spine, thoracic Instructions: ED Back Sprain/Strain Prescriptions: New ibuprofen 600 mg tablet 600 mg PO Q6H PRN PRN (Reason: pain) Qty: 20 0RF No Action buspirone 5 mg tablet 5 mg PO DAILY Patient Comments: TAKE 1 TABLET BY MOUTH THREE TIMES DAILY NEEDED naproxen [Naprosyn] 500 mg tablet 500 mg PO BID Qty: 20 0RF omeprazole 40 mg capsule,delayed release(DR/EC) 40 mg PO DAILY Patient Comments: TAKE 1 CAPSULE BY MOUTH ONCE DAILY Primary Care Provider: Lamar Santamaria NP Referrals: Lamar Santamaria NP, [employer] [Primary Care Provider] - 1 Week Activity Restrictions/Additional Instructions: Somatic function upper thoracic spine. HVLA performed upper thoracic. Improving movement. Add ibuprofen to your regimen. Continue oral fluids for hydration. Continue to follow-up with your PCP and your chiropractor. Disposition Disposition: Home, Self Care Discharge Date/Time: 12/23/23 12:30
[2023-12-23] MEDS: Ibuprofen 600 MG Tablet PO (11:55)
--- OUTSIDE RECORDS SUMMARY | 2023-12-23 12:31 | XMS RPT_ITS | CCD ---
Author Name Unknown Address [address] [place] [address] Organization [facility] Care Team Providers Care Content Coordinator Name Role Phone Unavailable Primary Care Provider Unavailabl e Hina [employer]ING [employer] SALESPERSON.TREADLE CUT OFF SAW OPERATOR, Murali Primary Care Provider HINA [employer] SALESPERSON-TREADLE CUT OFF SAW OPERATOR, MURALI MONICA Primary Care Physicia n CHAD GAONA, NEERU Mojica Attending Unavail able HINA [employer] SALESPERSON-TREADLE CUT OFF SAW OPERATOR, MURALI MONICA Primary Care Neelam DURAND MD, DR RU Adan Attending Neelami lable PHYSICIAN, NONE Primary Care Unavailable HINA [employer] SALESPERSON-TREADLE CUT OFF SAW OPERATOR, MURALI MONICA Primary Care Neelam SCRUGGS MD, DR SRIKANTH Vargas Attending Unavailable HINA, MURALI Referring Unavailable HINA, MURALI Primary Care Unavailable SPENCER OJEDA Attending Unavailable ABHIJITKAEVIE Referring Unavailable HINA, MURALI Primary Care Unavailable HINA, MURALI Primary Care Unavailable HINA, MURALI Attending Unavailable HINA, MURALI Primary Care Unavailable HINA, MURALI Referring Unavailable HINA, MURALI Referring Unavailable HINA, MURALI Primary Care Unavailable HINA, MURALI Referring Unavailable HINA, MURALI Primary Care Unavailable HINA, MURALI Primary Care Unavailable HINA, MURALI Attending Unavailable HINA, MURALI Referring Unavailable EVIE ARGUETA Attending Unavailable HINA, MURALI Primary Care Unavailable HINA, MURALI Attending Unavailable HINA, MURALI Primary Care Unavailable EVIE ARGUETA Attending Unavailable HINA, MURALI Primary Care Unavailable HINA, MURALI Referring Unavailable CASTILLO WILSON Attending Unavailable HINA, MURALI Attending Unavailable HIAN, MURALI Primary Care Unavailable HINA, MURALI Primary Care Unavailable HINA, MURALI Attending Unavailable HINA, MURALI Primary Care Unavailable HINA, MURALI Primary Care Unavailable HINA, MURALI Attending Unavailable HINA, MURALI Primary Care Unavailable HINA, MURALI Primary Care Unavailable HINA, MURALI Referring Unavailable HINA, MURALI Attending Unavailable HINA, MURALI Primary Care Unavailable HINA, MURALI Primary Care Unavailable HINA, MURALI Attending Unavailable HINAMURALI Referring Unavailable HINA, MURALI Primary Care Unavailable IHNA, MURALI Primary Care Unavailable HINA, MURALI Attending Unavailable Medications Current Medications Medication Drug Class(es) Dates Sig (Normalized) Sig (Original) cetirizine hydrochloride 10 mg oral tablet (1 source) Histamine-1 Receptor Antagonist Start: 02-15-2023 End: 03-01-2023 take 1 tablet by mouth once daily cetirizine (ZYRTEC) 10 mg tablet Take 1 tablet by mouth once daily for 14 days. 14 tablet 0 02/15/2023 03/01/2023 Active Completed/Discontinued Medications Medication Drug Class(es) Dates Sig (Normalized) Sig (Original) busPIRone hydrochloride 5 mg oral tablet (5 sources) Start: 01-21-2023 take 1 tablet by mouth every eight hours as needed for anxiety and anxiety busPIRone (BUSPAR) 5 mg tablet Indications: Anxiety Take 1 tablet by mouth three times daily as needed. 90 tablet 1 01/21/2023 Active Problems Active Problems Problem Classification Problem Date Documented Date Episodic/Chronic Abdominal hernia (1 source) Gastroesophageal reflux disease with hiatal hernia; Translations: [Diaphragmatic hernia without obstruction or gangrene] 08-22-2023 Episodic Abdominal pain (2 sources) Epigastric pain; Translations: [Epigastric pain] Onset: 02-15-2023 Episodic Conditions associated with dizziness or vertigo (2 sources) Dizziness; Translations: [Dizziness and giddiness] Episodic Esophageal disorders (4 sources) Gastroesophageal reflux disease without esophagitis; Translations: [Gastro-esophageal reflux disease without esophagitis] Onset: 05-11-2023 05-20-2023 Chronic Essential hypertension (1 source) Essential hypertension; Translations: [Essential (primary) hypertension] Onset: 02-15-2023 Chronic Genitourinary symptoms and ill-defined conditions (1 source) Post-void dribbling; Translations: [Post-void dribbling] Onset: 09-13-2023 Chronic Nausea and vomiting (1 source) Nausea; Translations: [Nausea] Episodic Nonspecific chest pain (1 source) Chest pain 02-04-2023 Episodic Other circulatory disease (1 source) Elevated blood-pressure reading without diagnosis of hypertension; Translations: [Elevated blood-pressure reading, without diagnosis of hypertension] 05-20-2023 Episodic Other nervous system disorders (1 source) Numbness of upper limb; Translations: [Anesthesia of skin] Episodic Other nervous system disorders (1 source) Pain in limb; Translations: [Paresthesia of skin] Episodic Other nervous system disorders (1 source) Facial paresthesia; Translations: [Paresthesia of skin] Episodic Other nervous system disorders (1 source) Numbness; Translations: [Anesthesia of skin] Episodic Other nervous system disorders (1 source) Paresthesia; Translations: [Paresthesia of skin] Episodic Other non-traumatic joint disorders (1 source) Disorder of shoulder; Translations: [Other specified joint disorders, unspecified shoulder] 12-14-2023 Episodic Otitis media and related conditions (1 source) Dysfunction of right eustachian tube; Translations: [Other specified disorders of Eustachian tube, right ear] Episodic Residual codes; unclassified (1 source) Contact with and (suspected) exposure to other hazardous, chiefly nonmedicinal, chemicals; Translations: [Contact with and (suspected) exposure to other potentially hazardous chemicals] Episodic Spondylosis; intervertebral disc disorders; other back problems (4 sources) Cervical radiculopathy; Translations: [Radiculopathy, cervical region] Onset: 02-25-2023 Episodic Viral infection (1 source) Viral wart on toe; Translations: [Viral wart, unspecified] 12-07-2023 Episodic Past or Other Problems Problem Classification Problem Date Documented Da te Episodic/Chronic Cardiac dysrhythmias (15 sources) Palpitations; Translations: [Palpitations] Onset: 01-21-2023 01-21-2023 Episodic Genitourinary symptoms and ill-defined conditions (4 sources) Dysuria; Translations: [Dysuria] Onset: 08-05-2023 07-29-2023 Episodic Immunizations and screening for infectious disease (4 sources) Viral screening status; Translations: [Encounter for screening for other viral diseases] Onset: 07-04-2023 07-01-2023 Episodic Other circulatory disease (1 source) Elevated blood-pressure reading, without diagnosis of hypertension; Translations: [Elevated blood-pressure reading, without diagnosis of hypertension] Onset: 05-20-2023 Episodic Other connective tissue disease (1 source) Pain in unspecified limb; Translations: [Paresthesia and pain of extremity] Onset: 02-25-2023 Episodic Other gastrointestinal disorders (1 source) Heartburn; Translations: [Heartburn] Onset: 05-11-2023 Episodic Other nervous system disorders (3 sources) Paresthesia of skin; Translations: [Paresthesia and pain of extremity] Onset: 02-25-2023 Episodic Other nervous system disorders (1 source) Anesthesia of skin; Translations: [Numbness in cervical dermatome distribution] Onset: 02-25-2023 Episodic Other screening for suspected conditions (not mental disorders or infectious disease) (4 sources) Patient encounter status; Translations: [Encounter for screening for lipoid disorders] Onset: 07-04-2023 07-01-2023 Episodic Sprains and strains (16 sources) Sprain of ankle; Translations: [Sprain of unspecified ligament of unspecified ankle, initial encounter] Onset: 06-13-2006 06-13-2006 Episodic Syncope (5 sources) Near syncope; Translations: [Syncope and collapse] Onset: 02-25-2023 Episodic Results Test Name Value Interpretation Reference Range Facil ity Vital Signs Date Time Vital Sign Value Performing Clinician Facility 12-14-2023 11:13-0500 Body weight 78.02 kg Murali Santamaria APRN.CNP Work Phone: [facility] 12-14-2023 11:13-0500 Diastolic blood pressure 90 mm[Hg] Murali Santamaria APRN.TREADLE CUT OFF SAW OPERATOR Work Phone: [facility] 12-14-2023 11:13-0500 Heart rate 73 /min Murali Santamaria APRN.TREADLE CUT OFF SAW OPERATOR Work Phone: [facility] 12-14-2023 11:13-0500 Respiratory rate 20 /min Murali Santamaria APRN.TREADLE CUT OFF SAW OPERATOR Work Phone: [facility] 12-14-2023 11:13-0500 SaO2% (BldA) [Mass fraction] 98 % Murali Santamaria APRN.TREADLE CUT OFF SAW OPERATOR Work Phone: [facility] 12-14-2023 11:13-0500 Systolic blood pressure 132 mm[Hg] Murali Santamaria APRN.CNP Work Phone: [facility] 12-07-2023 14:32-0500 Body weight 77.38 kg Murali Hina [employer]ING [employer] SALESPERSON.TREADLE CUT OFF SAW OPERATOR Work Phone: [facility] 12-07-2023 14:32-0500 Diastolic blood pressure 80 mm[Hg] Murali Hina [employer]ING [employer] SALESPERSON.TREADLE CUT OFF SAW OPERATOR Work Phone: [facility] 12-07-2023 14:32-0500 Heart rate 80 /min Murali Hina [employer]ING [employer] SALESPERSON.TREADLE CUT OFF SAW OPERATOR Work Phone: [facility] 12-07-2023 14:32-0500 Respiratory rate 16 /min Murlai Hina [employer]ING GOODS SALESPERSON.TREADLE CUT OFF SAW OPERATOR Work Phone: [facility] 12-07-2023 14:32-0500 Systolic blood pressure 136 mm[Hg] Murali Hina [employer]ING GOODS SALESPERSON.TREADLE CUT OFF SAW OPERATOR Work Phone: [facility] 08-22-2023 10:47-0500 Body height 179.1 cm Evie Orellanaka PA-C Work Phone: [facility] 08-22-2023 10:47-0500 Body weight 79.38 kg Evie Kalka PA-C Work Phone: [facility] 08-22-2023 10:47-0500 Diastolic blood pressure 84 mm[Hg] Evie Kalka PA-C Work Phone: [facility] 08-22-2023 10:47-0500 Heart rate 60 /min Evie Kalka PA-C Work Phone: [facility] 08-22-2023 10:47-0500 Systolic blood pressure 126 mm[Hg] Evie Kalka PA-C Work Phone: [facility] 07-29-2023 14:06-0400 Body weight 78.93 kg Murali Hina [employer]ING GOODS SALESPERSON.TREADLE CUT OFF SAW OPERATOR Work Phone: [facility] 07-29-2023 14:06-0400 Diastolic blood pressure 82 mm[Hg] Murali Hina [employer]ING GOODS SALESPERSON.TREADLE CUT OFF SAW OPERATOR Work Phone: [facility] 07-29-2023 14:06-0400 Heart rate 76 /min Murali Hina [employer]ING [employer] SALESPERSON.TREADLE CUT OFF SAW OPERATOR Work Phone: [facility] 07-29-2023 14:06-0400 SaO2% (BldA) [Mass fraction] 98 % Murali Hina [employer]ING [employer] SALESPERSON.TREADLE CUT OFF SAW OPERATOR Work Phone: [facility] 07-29-2023 14:06-0400 Systolic blood pressure 124 mm[Hg] Murali Hina [employer]ING [employer] SALESPERSON.TREADLE CUT OFF SAW OPERATOR Work Phone: [facility] 07-01-2023 14:21-0400 Body height 179.1 cm Murali Hina [employer]ING GOODS SALESPERSON.TREADLE CUT OFF SAW OPERATOR Work Phone: [facility] 07-01-2023 14:21-0400 Body weight 78.47 kg Murali Hina [employer]ING GOODS SALESPERSON.TREADLE CUT OFF SAW OPERATOR Work Phone: [facility] 07-01-2023 14:21-0400 Diastolic blood pressure 86 mm[Hg] Murali Hina [employer]ING [employer] SALESPERSON.TREADLE CUT OFF SAW OPERATOR Work Phone: [facility] 07-01-2023 14:21-0400 Heart rate 78 /min Murali Hina [employer] SALESPERSON.TREADLE CUT OFF SAW OPERATOR Work Phone: [facility] 07-01-2023 14:21-0400 SaO2% (BldA) [Mass fraction] 98 % Murali Hina [employer]ING [employer] SALESPERSON.TREADLE CUT OFF SAW OPERATOR Work Phone: [facility] 07-01-2023 14:21-0400 Systolic blood pressure 118 mm[Hg] Murali Hina [employer]ING [employer] SALESPERSON.TREADLE CUT OFF SAW OPERATOR Work Phone: [facility] 05-20-2023 14:33-0400 Body weight 83.01 kg Murali Hina [employer]ING [employer] SALESPERSON.TREADLE CUT OFF SAW OPERATOR Work Phone: [facility] 05-20-2023 14:33-0400 Diastolic blood pressure 98 mm[Hg] Murali Hina [employer]ING [employer] SALESPERSON.TREADLE CUT OFF SAW OPERATOR Work Phone: [facility] 05-20-2023 14:33-0400 Heart rate 68 /min Murali Hina [employer]ING [employer] SALESPERSON.TREADLE CUT OFF SAW OPERATOR Work Phone: [facility] 05-20-2023 14:33-0400 Respiratory rate 16 /min Murali Hina [employer]ING [employer] SALESPERSON.TREADLE CUT OFF SAW OPERATOR Work Phone: [facility] 05-20-2023 14:33-0400 SaO2% (BldA) [Mass fraction] 98 % Murali Hina [employer] SALESPERSON.TREADLE CUT OFF SAW OPERATOR Work Phone: [facility] 05-20-2023 14:33-0400 Systolic blood pressure 130 mm[Hg] Murali Hina [employer]ING [employer] SALESPERSON.TREADLE CUT OFF SAW OPERATOR Work Phone: [facility] 03-18-2023 15:14-0400 Body weight 84.82 kg Murali Hina [employer]ING [employer] SALESPERSON.TREADLE CUT OFF SAW OPERATOR Work Phone: [facility] 03-18-2023 15:14-0400 Diastolic blood pressure 80 mm[Hg] Murali Hina [employer]ING [employer] SALESPERSON.TREADLE CUT OFF SAW OPERATOR Work Phone: [facility] 03-18-2023 15:14-0400 Heart rate 73 /min Murali Hina [employer]ING GOODS SALESPERSON.TREADLE CUT OFF SAW OPERATOR Work Phone: [facility] 03-18-2023 15:14-0400 Respiratory rate 16 /min Murali Hina [employer]ING GOODS SALESPERSON.TREADLE CUT OFF SAW OPERATOR Work Phone: [facility] 03-18-2023 15:14-0400 SaO2% (BldA) [Mass fraction] 98 % Murali Hina [employer] SALESPERSON.TREADLE CUT OFF SAW OPERATOR Work Phone: [facility] 03-18-2023 15:14-0400 Systolic blood pressure 136 mm[Hg] Murali Hina [employer]ING GOODS SALESPERSON.TREADLE CUT OFF SAW OPERATOR Work Phone: [facility] 02-15-2023 14:23-0400 Body temperature 97.81 [degF] Veronica Athy PA-C Work Phone: [facility] 02-15-2023 14:23-0400 Body weight 85.28 kg Veronica Athy PA-C Work Phone: [facility] 02-15-2023 14:23-0400 Diastolic blood pressure 68 mm[Hg] Veronica Athy PA-C Work Phone: [facility] 02-15-2023 14:23-0400 Heart rate 64 /min Veronica Athy PA-C Work Phone: [facility] 02-15-2023 14:23-0400 Respiratory rate 16 /min Veronica Ochoa PA-C Work Phone: [facility] 02-15-2023 14:23-0400 SaO2% (BldA) [Mass fraction] 99 % Veronica Ochoa PA-C Work Phone: [facility] 02-15-2023 14:23-0400 Systolic blood pressure 120 mm[Hg] Veronica Ochoa PA-C Work Phone: [facility] 02-15-2023 12:46-0400 Body height 182.9 cm NEERU BONILLA MD [facility] 02-15-2023 12:46-0400 Body temperature 98.78 [degF] NEERU BONILLA MD [facility] 02-15-2023 12:46-0400 Body weight 84.1 kg NEERU BONILLA MD [facility] 02-15-2023 12:46-0400 Diastolic Blood Pressure Non-Invasive 105 1 NEERU BONILLA MD [facility] 02-15-2023 12:46-0400 Heart rate 65 /min NEERU BONILLA MD [facility] 02-15-2023 12:46-0400 Respiratory rate 18 /min NEERU BONILLA MD [facility] 02-15-2023 12:46-0400 Systolic Blood Pressure Non-Invasive 163 1 NEERU BONILLA MD [facility] 01-31-2023 10:48-0400 Body weight 84.82 kg Murali Santamaria APRN.CNP Work Phone: [facility] 01-31-2023 10:48-0400 Diastolic blood pressure 82 mm[Hg] Murali Santamaria APRN.TREADLE CUT OFF SAW OPERATOR Work Phone: [facility] 01-31-2023 10:48-0400 Heart rate 64 /min Murali Hina [employer] SALESPERSON.TREADLE CUT OFF SAW OPERATOR Work Phone: [facility] 01-31-2023 10:48-0400 SaO2% (BldA) [Mass fraction] 99 % Murali Hina [employer]ING [employer] SALESPERSON.TREADLE CUT OFF SAW OPERATOR Work Phone: [facility] 01-31-2023 10:48-0400 Systolic blood pressure 124 mm[Hg] Murali Hina [employer]ING [employer] SALESPERSON.TREADLE CUT OFF SAW OPERATOR Work Phone: [facility] 12-08-2022 15:44-0500 Body weight 83.01 kg Murali Hina [employer]ING [employer] SALESPERSON.TREADLE CUT OFF SAW OPERATOR Work Phone: [facility] 12-08-2022 15:44-0500 Diastolic blood pressure 84 mm[Hg] Murali Hina [employer]ING [employer] SALESPERSON.TREADLE CUT OFF SAW OPERATOR Work Phone: [facility] 12-08-2022 15:44-0500 Heart rate 73 /min Murali Hina [employer]ING [employer] SALESPERSON.TREADLE CUT OFF SAW OPERATOR Work Phone: [facility] 12-08-2022 15:44-0500 SaO2% (BldA) [Mass fraction] 99 % Murali Hina [employer] SALESPERSON.TREADLE CUT OFF SAW OPERATOR Work Phone: [facility] 12-08-2022 15:44-0500 Systolic blood pressure 127 mm[Hg] Murali Hina [employer]ING [employer] SALESPERSON.TREADLE CUT OFF SAW OPERATOR Work Phone: [facility] Encounters Encounter Date Encounter Type Care Provider Facility Start: 12-14-2023 End: 12-14-2023 ambulatory MURALI HINA Facility:[facility] Start: 12-14-2023 End: 12-14-2023 Patient encounter procedure Murali Hina [employer] SALESPERSON.TREADLE CUT OFF SAW OPERATOR Work Phone: [facility] Procedures Date Procedure Procedure Detail Performing Clinician Start: 07-29-2023 Urnls dip stick/tablet rgnt auto w/o microscopy Murali Hina [employer] SALESPERSON.TREADLE CUT OFF SAW OPERATOR Work Phone: Start: 01-29-2023 Electrocardiographic monitor and recorder, device (physical object) NEERU BONILLA MD Plan of Treatment Date Care Activity Detail Author Start: 04-15-2024 Influenza vaccination Influenza Vacc ine (#1) [facility] Payers Date Payer Category Payer Unknown [id number] 2022 Unknown [id number] 2022 Unknown [id number] 1992 Unknown [id number] 1992 Unknown [id number] 1992 Unknown [id number] Social History Date Type Detail Facility Start: 06-13-2012 End: 02-04-2023 Tobacco smoking status MDIS Never smoked tobacco [facility] Start: 06-13-2012 Tobacco use and exposure Smokeless tobacco non-user [facility] Start: 12-08-2022 End: 03-18-2023 Alcohol intake Current non-drinker of alcohol (finding) [facility] Start: 1990 Sex Assigned At Not on file C [facility] Sex Assigned At Male [facility] Start: 05-20-2023 End: 12-14-2023 Alcohol intake Current drinker of alcohol (finding) [facility] Start: 02-18-2023 End: 05-20-2023 History of Social function [facility] Work Phone: Start: 02-18-2023 End: 05-20-2023 Tobacco use panel [facility] Work Phone: National Score (1-100), lower number is lower risk 54 [facility] Work Phone: Start: 04-13-2023 Alcohol Comment once a month [facility] Functional Status Date Assessment Result Facility 02-15-2023 Functional Status Assistive Device None A [facility] Mental Status Date Assessment Result Facility 02-15-2023 Mental Status Oriented x 4 [facility] Clinical Notes 12-08-2022 to 12-14-2023 Murali Santamaria APRN.RAFI - 12/14/2023 11:17 AM Murali Perez APRN.TREADLE CUT OFF SAW OPERATOR - 12/07/2023 2:37 PM Evie Beard PA-C - 08/22/2023 10:47 AM Murali Perez APRN.RAFI - 07/29/2023 2:10 PM EDT Note Date & Type Note Facility 12-14-2023 Note HNO ID: [id number] Author: KAMERON KINSEY RT(R) Service: ? Author Type: Assigner Type: Progress Notes Filed: 12/14/2023 12:02 Note Text: Radiology Service Progress Note PATIENT NAME: Anival Moya DATE OF SERVICE: December 14, 2023 TIME: 11:51 AM PATIENT IDENTITY VERIFICATION COMPLETED USING TWO (2) IDENTIFIERS: Name and Date of confirmed by patient verbally. FALL SCREENING: Has the patient had 2 falls in the last year or 1 fall with injury or currently using an Ambulatory Assistive Device (Walker, Cane, Wheelchair, Crutches, etc.)? No PATIENT GENDER DATA: Male PATIENT RELEVANT IMPLANT DATA REVIEWED: Yes PATIENT PRESENTS WITH AN IMPLANTABLE OR ATTACHED BATTERY CHARGER CONVEYOR LINE: No RADIOLOGY DEPARTMENT: General X-ray: Exam(s) Completed: Spine X-Ray(s): Cervical AP / LAT / OBL PERIPHERAL IV DATA: Not applicable SIGNED BY: RT Janee(R) December 14, 2023 11:51 AM [facility] 12-14-2023 Note HNO ID: [id number] Author: MURALI SANTAMARIA APRN.RAFI Service: ? Author Type: Nurse Practitioner Type: Progress Notes Filed: 12/14/2023 12:52 Note Text: SUBJECTIVE Anival Moya is a 33 year old male here today for acute concern. Chief Complaint Patient presents with: Neck Pain: Worsen since last OV - moved quickly earlier this week and has worsened HPI Anival Moya is a 33 year old male. He presents today acutely for continued issues with neck pain. He was recently seen on 12/07, see HPI for that visit. HPI in brief is that a week prior (about 2 weeks from today's visit) he woke up with neck stiffness and aching primarily on the left side. He had no numbness, tingling or weakness of extremities. We treated for muscle strain with a PRN muscle relaxer, prednisone taper, rest, heat, massage, gentle range of motion and stretching and prior to being seen in the office he was taking NSAIDs. He had actually improved and the symptoms had almost resolved but then on Tuesday of this week while at work he was startled and moved his head quickly to look behind him. This resulted in him getting pain on the right side of the neck. Pain is going down the arm some. He notices if he holds the arm up above his head it causes his finger tips to tingle. His medications were reviewed today and his list is now up to date. Medications Current Outpatient Medications Medication Sig gabapentin (NEURONTIN) 100 mg capsule Take 1 capsule by mouth three times a day for 30 days. tiZANidine (ZANAFLEX) 4 mg tablet Take 1 tablet by mouth every 8 hours as needed (muscle spasms). predniSONE (DELTASONE) 10 mg tablet Take 2 tabs po BID for 2 days then 1 tab po BID for 2 days then 1/2 tab po BID for 2 days then 1/2 tab daily for 2 days then stop. Take with food. omeprazole (PRILOSEC) 20 mg capsule Take 1 capsule by mouth once daily. famotidine (PEPCID) 20 mg tablet Take 1 tablet by mouth once daily as needed (for heartburn). No current facility-administered medications for this visit. ALLERGIES No Known Allergies ACTIVE PROBLEM LIST Palpitations - 01/21/2023 Sprain of Ankle, Unspecified Site - 06/13/2006 Social History Tobacco Use Smoking status: Never Smokeless tobacco: Never Vaping Use Vaping Use: Never used Substance Use Topics Alcohol use: Yes Comment: once a month Drug use: Never Review of Systems Respiratory: Negative. Cardiovascular: Negative. Musculoskeletal: Positive for arthralgias, myalgias and neck pain. OBJECTIVE BP 132/90 Pulse 73 Resp 20 Wt 172 lb (78.0kg) SpO2 98% Physical Exam Vitals and nursing note reviewed. Constitutional: General: He is awake. He is not in acute distress. Appearance: Normal appearance. He is well-developed and well-groomed. He is not ill-appearing, toxic-appearing or diaphoretic. HENT: Head: Normocephalic. Right Ear: External ear normal. Left Ear: External ear normal. Nose: Nose normal. Eyes: General: Vision grossly intact. Conjunctiva/sclera: Conjunctivae normal. Pupils: Pupils are equal, round, and reactive to light. Neck: Vascular: No JVD. Trachea: Trachea normal. Cardiovascular: Pulses: Normal pulses. Pulmonary: Effort: Pulmonary effort is normal. No accessory muscle usage, prolonged expiration or respiratory distress. Musculoskeletal: Cervical back: Neck supple. No swelling, edema, deformity, erythema, rigidity, spasms, torticollis, bony tenderness or crepitus. Pain with movement present. Decreased range of motion (due to pain with muscle use). Back: Comments: Pain to the para spinal cervical spine on patient right and extends in to the trapezius muscle region Skin: General: Skin is warm and dry. Capillary Refill: Capillary refill takes less than 2 seconds. Neurological: General: No focal deficit present. Mental Status: He is alert and oriented to person, place, and time. Mental status is at baseline. Psychiatric: Attention and Perception: Attention and perception normal. Mood and Affect: Mood and affect normal. Speech: Speech normal. Behavior: Behavior normal. Behavior is cooperative. Thought Content: Thought content normal. Cognition and Memory: Cognition and memory normal. Judgment: Judgment normal. ASSESSMENT/PLAN: 1. Neck pain - ICD9: 723.1, ICD10: M54.2 (primary diagnosis) Check xray, pain now more right sided, treatment of rest, ice/heat, massage, gentle stretching and range of motion. Finish steroid taper, once done steroid can return to NSAIDs, gabapentin to help with pain and muscle relaxer PRN. Plan for PT. He does have symptoms of an impingement of possibly the c7 given the distribution. Xray will help determine further work up and steps. - XR CERV OTHER 4V AP/LAT/OBL - GABAPENTIN 100 MG CAPSULE - CONSULT TO PHYSICAL THERAPY 2. Impingement of shoulder - ICD9: 719.81, ICD10: M25.819 Portions of this note have been entered by ancillary staff. I hurley (more content not included)... [facility] 12-14-2023 History of Presen t illness Narrative Images from the original note were not included. SUBJECTIVE Anival Moya is a 33 year old male here today for acute concern. Chief Complaint Patient presents with: Neck Pain: Worsen since last OV - moved quickly earlier this week and has worsened HPI Anival Moya is a 33 year old male. He presents today acutely for continued issues with neck pain. He was recently seen on 12/07, see HPI for that visit. HPI in brief is that a week prior (about 2 weeks from today's visit) he woke up with neck stiffness and aching primarily on the left side. He had no numbness, tingling or weakness of extremities. We treated for muscle strain with a PRN muscle relaxer, prednisone taper, rest, heat, massage, gentle range of motion and stretching and prior to being seen in the office he was taking NSAIDs. He had actually improved and the symptoms had almost resolved but then on Tuesday of this week while at work he was startled and moved his head quickly to look behind him. This resulted in him getting pain on the right side of the neck. Pain is going down the arm some. He notices if he holds the arm up above his head it causes his finger tips to tingle. His medications were reviewed today and his list is now up to date. Medications Current Outpatient Medications Medication Sig gabapentin (NEURONTIN) 100 mg capsule Take 1 capsule by mouth three times a day for 30 days. tiZANidine (ZANAFLEX) 4 mg tablet Take 1 tablet by mouth every 8 hours as needed (muscle spasms). predniSONE (DELTASONE) 10 mg tablet Take 2 tabs po BID for 2 days then 1 tab po BID for 2 days then 1/2 tab po BID for 2 days then 1/2 tab daily for 2 days then stop. Take with food. omeprazole (PRILOSEC) 20 mg capsule Take 1 capsule by mouth once daily. famotidine (PEPCID) 20 mg tablet Take 1 tablet by mouth once daily as needed (for heartburn). No current facility-administered medications for this visit. ALLERGIES No Known Allergies ACTIVE PROBLEM LIST Palpitations - 01/21/2023 Sprain of Ankle, Unspecified Site - 06/13/2006 Social History Tobacco Use Smoking status: Never Smokeless tobacco: Never Vaping Use Vaping Use: Never used Substance Use Topics Alcohol use: Yes Comment: once a month Drug use: Never Review of Systems Respiratory: Negative. Cardiovascular: Negative. Musculoskeletal: Positive for arthralgias, myalgias and neck pain. OBJECTIVE BP 132/90 Pulse 73 Resp 20 Wt 172 lb (78.0kg) SpO2 98% Physical Exam Vitals and nursing note reviewed. Constitutional: General: He is awake. He is not in acute distress. Appearance: Normal appearance. He is well-developed and well-groomed. He is not ill-appearing, toxic-appearing or diaphoretic. HENT: Head: Normocephalic. Right Ear: External ear normal. Left Ear: External ear normal. Nose: Nose normal. Eyes: General: Vision grossly intact. Conjunctiva/sclera: Conjunctivae normal. Pupils: Pupils are equal, round, and reactive to light. Neck: Vascular: No JVD. Trachea: Trachea normal. Cardiovascular: Pulses: Normal pulses. Pulmonary: Effort: Pulmonary effort is normal. No accessory muscle usage, prolonged expiration or respiratory distress. Musculoskeletal: Cervical back: Neck supple. No swelling, edema, deformity, erythema, rigidity, spasms, torticollis, bony tenderness or crepitus. Pain with movement present. Decreased range of motion (due to pain with muscle use). Back: Comments: Pain to the para spinal cervical spine on patient right and extends in to the trapezius muscle region Skin: General: Skin is warm and dry. Capillary Refill: Capillary refill takes less than 2 seconds. Neurological: General: No focal deficit present. Mental Status: He is alert and oriented to person, place, and time. Mental status is at baseline. Psychiatric: Attention and Perception: Attention and perception normal. Mood and Affect: Mood and affect normal. Speech: Speech normal. Behavior: Behavior normal. Behavior is cooperative. Thought Content: Thought content normal. Cognition and Memory: Cognition and memory normal. Judgment: Judgment normal. ASSESSMENT/PLAN: 1. Neck pain - ICD9: 723.1, ICD10: M54.2 (primary diagnosis) Check xray, pain now more right sided, treatment of rest, ice/heat, massage, gentle stretching and range of motion. Finish steroid taper, once done steroid can return to NSAIDs, gabapentin to help with pain and muscle relaxer PRN. Plan for PT. He does have symptoms of an impingement of possibly the c7 given the distribution. Xray will help determine further work up and steps. - XR CERV OTHER 4V AP/LAT/OBL - GABAPENTIN 100 MG CAPSULE - CONSULT TO PHYSICAL THERAPY 2. Impingement of shoulder - ICD9: 719.81, ICD10: M25.819 Portions of this note have been entered by ancillary staff. I have reviewed and when necessary edited, so that they are an adequate record of my encounter with this patient Please note that parts of this document were created using voice recognition software and therefore may contain grammatical errors. Patient verbalizes understanding of instructions from today's visit and in agreement with treatment plan. Questions answered. Agrees to call the office if questions, concerns of issues with acute symptoms not improving or if they worsen. See diagnoses and orders for additional plan(s). Allergies and medications were reviewed, list was updated, and refills given if needed. Past medical, surgical, social, and family history reviewed and updated as appropriate. Encouraged proper diet & exercise as well as compliance with taking medications. Age-appropriate health preventative measures were discussed. Return if symptoms worsen or fail to improve. Murali Santamaria APRN-RAFI documented in this encounter [facility] 12-07-2023 Note HNO ID: [id number] Author: MURALI SANTAMARIA APRN.CNP Service: ? Author Type: Nurse Practitioner Type: Progress Notes Filed: 12/07/2023 14:58 Note Text: SUBJECTIVE Anival Moya is a 33 year old male here today for acute concern. Chief Complaint Patient presents with: Neck Pain Wart: R foot, medial 3rd toe HPI Anival Moya is a 33 year old male. Here today for concerns of neck pain. Onset about a week ago, last . Woke up with some stiffness, aching. Went to the chiropractor. Some pain with movement. Muscles feel tight. Has had prior neck and back pain/issues. No numbness, tingling or pain down the arms. Hot shower helped. Spot on his right foot, 3rd toe. Thinks it is a wart. His medications were reviewed today and his list is now up to date. Medications Current Outpatient Medications Medication Sig tiZANidine (ZANAFLEX) 4 mg tablet Take 1 tablet by mouth every 8 hours as needed (muscle spasms). predniSONE (DELTASONE) 10 mg tablet Take 2 tabs po BID for 2 days then 1 tab po BID for 2 days then 1/2 tab po BID for 2 days then 1/2 tab daily for 2 days then stop. Take with food. omeprazole (PRILOSEC) 20 mg capsule Take 1 capsule by mouth once daily. famotidine (PEPCID) 20 mg tablet Take 1 tablet by mouth once daily as needed (for heartburn). No current facility-administered medications for this visit. ALLERGIES No Known Allergies ACTIVE PROBLEM LIST Palpitations - 01/21/2023 Sprain of Ankle, Unspecified Site - 06/13/2006 Social History Tobacco Use Smoking status: Never Smokeless tobacco: Never Vaping Use Vaping Use: Never used Substance Use Topics Alcohol use: Yes Comment: once a month Drug use: Never Review of Systems Respiratory: Negative. Cardiovascular: Negative. Musculoskeletal: Positive for arthralgias, neck pain and neck stiffness. OBJECTIVE BP 136/80 Pulse 80 Resp 16 Wt 170 lb 9.6 oz (77.4kg) Physical Exam Vitals and nursing note reviewed. Constitutional: General: He is awake. He is not in acute distress. Appearance: Normal appearance. He is well-developed and well-groomed. He is not ill-appearing, toxic-appearing or diaphoretic. HENT: Head: Normocephalic. Right Ear: External ear normal. Left Ear: External ear normal. Nose: Nose normal. Eyes: General: Vision grossly intact. Conjunctiva/sclera: Conjunctivae normal. Pupils: Pupils are equal, round, and reactive to light. Neck: Vascular: No JVD. Trachea: Trachea normal. Pulmonary: Effort: Pulmonary effort is normal. No accessory muscle usage, prolonged expiration or respiratory distress. Musculoskeletal: Cervical back: Neck supple. Pain with movement and muscular tenderness present. No spinous process tenderness. Decreased range of motion (because of discomfort). Skin: General: Skin is warm and dry. Capillary Refill: Capillary refill takes less than 2 seconds. Neurological: General: No focal deficit present. Mental Status: He is alert and oriented to person, place, and time. Mental status is at baseline. Psychiatric: Attention and Perception: Attention and perception normal. Mood and Affect: Mood and affect normal. Speech: Speech normal. Behavior: Behavior normal. Behavior is cooperative. Thought Content: Thought content normal. Cognition and Memory: Cognition and memory normal. Judgment: Judgment normal. ASSESSMENT/PLAN: 1. Strain of neck muscle, initial encounter - ICD9: 847.0, ICD10: S16.1XXA (primary diagnosis) Discussed rest, heat, massage, gentle range of motion and stretching. Muscle relaxer PRN, can do steroid taper too. - TIZANIDINE 4 MG TABLET - PREDNISONE 10 MG TABLET 2. Viral wart on toe - ICD9: 078.10, ICD10: B07.9 Discussed OTCs he would like to try. Murali Santamaria APRN.TREADLE CUT OFF SAW OPERATOR Portions of this note have been entered by ancillary staff. I have reviewed and when necessary edited, so that they are an adequate record of my encounter with this patient Please note that parts of this document were created using voice recognition software and therefore may contain grammatical errors. Patient verbalizes understanding of instructions from today's visit and in agreement with treatment plan. Questions answered. Agrees to call the office if questions, concerns of issues with acute symptoms not improving or if they worsen. See diagnoses and orders for additional plan(s). Allergies and medications were reviewed, list was updated, and refills given if needed. Past medical, surgical, social, and family history reviewed and updated as appropriate. Encouraged proper diet AND exercise as well as compliance with taking medications. Age-appropriate health preventative measures were discussed. Return in about 6 months (around 06/06/2024), or if symptoms worsen or fail to improve. Murali Santamaria APRN-TREADLE CUT OFF SAW OPERATOR [facility] 12-07-2023 History of Presen t illness Narrative SUBJECTIVE Anival Moya is a 33 year old male here today for acute concern. Chief Complaint Patient presents with: Neck Pain Wart: R foot, medial 3rd toe HPI Anival Moya is a 33 year old male. Here today for concerns of neck pain. Onset about a week ago, last . Woke up with some stiffness, aching. Went to the chiropractor. Some pain with movement. Muscles feel tight. Has had prior neck and back pain/issues. No numbness, tingling or pain down the arms. Hot shower helped. Spot on his right foot, 3rd toe. Thinks it is a wart. His medications were reviewed today and his list is now up to date. Medications Current Outpatient Medications Medication Sig tiZANidine (ZANAFLEX) 4 mg tablet Take 1 tablet by mouth every 8 hours as needed (muscle spasms). predniSONE (DELTASONE) 10 mg tablet Take 2 tabs po BID for 2 days then 1 tab po BID for 2 days then 1/2 tab po BID for 2 days then 1/2 tab daily for 2 days then stop. Take with food. omeprazole (PRILOSEC) 20 mg capsule Take 1 capsule by mouth once daily. famotidine (PEPCID) 20 mg tablet Take 1 tablet by mouth once daily as needed (for heartburn). No current facility-administered medications for this visit. ALLERGIES No Known Allergies ACTIVE PROBLEM LIST Palpitations - 01/21/2023 Sprain of Ankle, Unspecified Site - 06/13/2006 Social History Tobacco Use Smoking status: Never Smokeless tobacco: Never Vaping Use Vaping Use: Never used Substance Use Topics Alcohol use: Yes Comment: once a month Drug use: Never Review of Systems Respiratory: Negative. Cardiovascular: Negative. Musculoskeletal: Positive for arthralgias, neck pain and neck stiffness. OBJECTIVE BP 136/80 Pulse 80 Resp 16 Wt 170 lb 9.6 oz (77.4kg) Physical Exam Vitals and nursing note reviewed. Constitutional: General: He is awake. He is not in acute distress. Appearance: Normal appearance. He is well-developed and well-groomed. He is not ill-appearing, toxic-appearing or diaphoretic. HENT: Head: Normocephalic. Right Ear: External ear normal. Left Ear: External ear normal. Nose: Nose normal. Eyes: General: Vision grossly intact. Conjunctiva/sclera: Conjunctivae normal. Pupils: Pupils are equal, round, and reactive to light. Neck: Vascular: No JVD. Trachea: Trachea normal. Pulmonary: Effort: Pulmonary effort is normal. No accessory muscle usage, prolonged expiration or respiratory distress. Musculoskeletal: Cervical back: Neck supple. Pain with movement and muscular tenderness present. No spinous process tenderness. Decreased range of motion (because of discomfort). Skin: General: Skin is warm and dry. Capillary Refill: Capillary refill takes less than 2 seconds. Neurological: General: No focal deficit present. Mental Status: He is alert and oriented to person, place, and time. Mental status is at baseline. Psychiatric: Attention and Perception: Attention and perception normal. Mood and Affect: Mood and affect normal. Speech: Speech normal. Behavior: Behavior normal. Behavior is cooperative. Thought Content: Thought content normal. Cognition and Memory: Cognition and memory normal. Judgment: Judgment normal. ASSESSMENT/PLAN: 1. Strain of neck muscle, initial encounter - ICD9: 847.0, ICD10: S16.1XXA (primary diagnosis) Discussed rest, heat, massage, gentle range of motion and stretching. Muscle relaxer PRN, can do steroid taper too. - TIZANIDINE 4 MG TABLET - PREDNISONE 10 MG TABLET 2. Viral wart on toe - ICD9: 078.10, ICD10: B07.9 Discussed OTCs he would like to try. Murali Santamaria APRN.CNP Portions of this note have been entered by ancillary staff. I have reviewed and when necessary edited, so that they are an adequate record of my encounter with this patient Please note that parts of this document were created using voice recognition software and therefore may contain grammatical errors. Patient verbalizes understanding of instructions from today's visit and in agreement with treatment plan. Questions answered. Agrees to call the office if questions, concerns of issues with acute symptoms not improving or if they worsen. See diagnoses and orders for additional plan(s). Allergies and medications were reviewed, list was updated, and refills given if needed. Past medical, surgical, social, and family history reviewed and updated as appropriate. Encouraged proper diet & exercise as well as compliance with taking medications. Age-appropriate health preventative measures were discussed. Return in about 6 months (around 06/06/2024), or if symptoms worsen or fail to improve. Murali Santamaria APRN-RAFI documented in this encounter [facility] 09-13-2023 Note HNO ID: [id number] Author: Castillo Wilson PA-C Service: ? Author Type: Physician Compliance Associate Type: Progress Notes Filed: 09/13/2023 7:03 PM Note Text: [facility] NEW PATIENT CLINIC NOTE SERVICE DATE: 09/13/2023 SERVICE TIME: 6:55 PM NAME: Anival Moya CHIEF COMPLAINT: Post-Void Drip HISTORY OF PRESENT ILLNESS: Anival Moya is a 33 year old male presenting as an New Patient for urinary symptoms and concerns of post-void drip The patient reports feels he hydrates well, however, the SG's in that last several UA are 1.035 or higher Post-void drip is bladder blocking the urethra while urine in the urethra and once bladder lifts of the opening the urin drains out. LUTS: Post-Void Drip - discussed this an how to try to manage it best LABS: No results found for: TESTOST No results found for: TESTFREE No results found for: PSA Hematocrit (%) Date Value 12/08/2022 48.5 No results found for: PSA Creatinine Date Value Ref Range Status 07/04/2023 1.04 0.73 - 1.22 mg/dL Final 12/08/2022 1.24 (H) 0.73 - 1.22 mg/dL Final MEDICATIONS: omeprazole (PRILOSEC) 20 mg capsule Take 1 capsule by mouth once daily. famotidine (PEPCID) 20 mg tablet Take 1 tablet by mouth once daily as needed (for heartburn). PAST MEDICAL HISTORY: PAST MEDICAL HISTORY Diagnosis Date Acid reflux Arthritis Hydrocele, bilateral 08/05/2023 Small Varicocele 08/05/2023 Borderline right PAST SURGICAL HISTORY: PAST SURGICAL HISTORY Procedure Laterality Date EGD W/O [facility] SPEC VARICIES INJ 05/11/2023 TONSILLECTOMY PRIMARY/SECONDARY Tonsillectomy FAMILY HISTORY: FAMILY HISTORY Problem Relation Age of Onset None Mother None Father Colon Cancer No Family History SOCIAL HISTORY: Social Connections: Not on file REVIEW OF SYSTEMS: GENERAL: No fever, chills, weight loss, or fatigue. ENMT: Negative CARDIOVASCULAR:NO CHEST PAIN, PALPITATIONS, ANKLE EDEMA RESPIRATORY: No chronic cough, wheezing, dyspnea, hemoptysis. GENITOURINARY: SEE HPI MUSCULOSKELETAL:NO CHRONIC BACK PAIN, ARTHRITIS, CHRONIC NECK PAIN SKIN: NO VARICOSE VEINS, RASH, ABNORMAL ITCHING HEME/LYMPH/IMMUNE:Negative for prolonged bleeding, bruising easily or swollen nodes NEUROLOGICAL: NO HEADACHES, NUMBNESS, SEIZURES, STROKE DIABETES: no All other systems reviewed and are negative PHYSICAL EXAMINATION: Blood pressure 132/90, pulse 82, temperature 36.9 ?C (98.4 ?F), temperature source Temporal, resp. rate 14, height 180.3 cm (5' 11 ), weight 77.7 kg (171 lb 3.2 oz), SpO2 97 %. GENERAL: WNL nutrition, no deformities, healthy appearing NEURO: Awake, alert and oriented x 3 and Normal gait PSYCH: No signs of depression, anxiety, or agitation ENMT (Ear, Nose, Mouth, Throat): No masses, adenopathy, icterus. Thyroid nonpalpable RESP: NL effort, no retractions or purse-lip breathing. CV: No extremity swelling, varices, edema, pallor, erythema GASTROINTESTINAL: Soft, nontender, nondistended, no masses. HERNIAS: None SKIN: No rash, lesions No palpable lymphadenopathy MUSCULOSKELETAL: Extremities normal. No deformities, edema, clubbing or skin discoloration. PROBLEM LIST REVIEW: Yes LABS: Results for orders placed or performed in visit on 09/13/23 UA DIP, URINE (POC) Result Value Ref Range GLUCOSE UA (POCT) Negative Negative mg/dL BILIRUBIN UA (POCT) Negative Negative KETONE UA (POCT) Negative Negative mg/dL SPECIFIC GRAVITY UA (POCT) 1.025 1.005 - 1.030 HEMOGLOBIN/BLOOD UA (POCT) Negative Negative PH UA (POCT) 7.0 4.5 - 8.0 PROTEIN UA (POCT) Negative Negative mg/dL UROBILINOGEN UA (POCT) 1.0 Normal E.U./dL NITRITE UA (POCT) Negative Negative LEUKOCYTES UA (POCT) Negative Negative COLOR UA (POCT) Yellow CLARITY UA (POCT) Clear PROCEDURES: PVR: 0 ml IMAGING: IMPRESSION/PLAN: 33 year old male with 1. Dysuria - ICD9: 788.1, ICD10: R30.0 UA shows high Specific [place] over the last 3-4 UA's which is likely due to dehydration We discussed the common causes of urinary frequency and urgency, and restricting water intake In hopes to mitigate the need to urinate, we discussed how this behavior more often worsen the problem not improving it, we discussed increasing daily water intake to 64-84 oz 7a -7p and try to reduce bladder irritants, caffeine, alcohol and acid foods and drink. > Post-Void Drip discussed the natural cause whe the bladder cover the urethral opening in BLADDER AND URINE IS TILL IN THE URETHRA AFTER BLADDER LIFTS OF THE URINE WILL DRIP OUT AND BOTHERSOME WHEN YOU HAVE LEFT THE BATHEROOM I spent a total of 30 minutes on the date of the service which included preparing to see the patient, face to face patient care, completing clinical documentation, obtaining and/or reviewing separately obtained history, performing a medically appropriate examination, counseling and ed (more content not included)... [facility] 09-13-2023 Note HNO ID: [id number] Author: Deana Soto LPN Service: ? Author Type: ? Type: Progress Notes Filed: 09/13/2023 7:03 PM Note Text: Verified name and date of . CC Post Void Residual HPI: Anival Moya is a 33 year old male. The patient is here now for an appointment with COLBY Braden, CHRIS BARRERA. Procedure: Explained procedure to patient and verbalizes understanding. Performed a PVR. Patient urinated and instructed to empty bladder as much as possible just prior to having PVR done using bladder ultrasound scanner. Results of scan: 25 mL The patient tolerated the procedure well. Plan: Appointment with Castillo. [facility] 08-22-2023 Note HNO ID: [id number] Author: Evie Argueta PA-C Service: ? Author Type: Physician Compliance Associate Type: Progress Notes Filed: 08/22/2023 11:23 AM Note Text: CHIEF COMPLAINT: Patient presents with: Procedure Follow Up: EGD 05/11/23 HPI Anival Moya is a 33 year old male here today for Procedure Follow Up (EGD 05/11/23). Seen last for GERD, started on Prilosec 40 mg daily. Currently feeling well, no further issues with reflux. Trying to adhere to reflux precautions. Notes some weight loss of 10-15 lbs. In the past several mos. Feels as though this could be 2/2 dietary changes. Denies changes in bowel habits, N/V, abd pain. EGD 04/2023 Impression: - Normal first portion of the duodenum, second portion of the duodenum and third portion of the duodenum. - Erythematous mucosa in the antrum. Biopsied. - Z-line irregular, 36 cm from the incisors. Biopsied. Small hiatal hernia A. Stomach, antrum, biopsy: - Gastric antral body type mucosa with no pathologic diagnostic abnormality; see comment. B. Esophagogastric junction, biopsy: - Squamous mucosa and slight chronically inflamed gastric mucosa with foveolar hyperplasia; negative for intraepithelial eosinophils, intestinal metaplasia or dysplasia. OV 03/2023 Anival Moya is a 33 year old male who presents for GERD (He has had reflux for years). Chronic issues with GERD for years. Reports EGD around age of 25, had dilation at this time. Has been on Prilosec 20 mg daily since the beginning of this year with some relief but not complete improvement. Reports epigastric/LUQ pain, unchanged with eating. Denies dysphagia, odynophagia, weight loss, bloody/black colored stools, regular NSAID usage. Current Outpatient Medications Medication Sig omeprazole (PRILOSEC) 40 mg capsule Take 1 capsule by mouth once daily. On empty stomach at least 30 minutes before meal. No current facility-administered medications for this visit. ALLERGIES No Known Allergies Social History Tobacco Use Smoking status: Never Smokeless tobacco: Never Vaping Use Vaping Use: Never used Substance Use Topics Alcohol use: Yes Comment: once a month Drug use: No PAST MEDICAL HISTORY Diagnosis Date Acid reflux Arthritis PAST SURGICAL HISTORY Procedure Laterality Date EGD W/O [facility] SPEC VARICIES INJ 05/11/2023 TONSILLECTOMY PRIMARY/SECONDARY Tonsillectomy FAMILY HISTORY Problem Relation Age of Onset None Mother None Father Colon Cancer No Family History REVIEW OF SYSTEMS Review of Systems Constitutional: Positive for unexpected weight change. All other systems reviewed and are negative. PHYSICAL EXAM BP 126/84 Pulse 60 Ht 179.1 cm (5' 10.5 ) Wt 79.4 kg (175 lb) BMI 24.75 kg/m? Physical Exam Constitutional: General: He is not in acute distress. Appearance: Normal appearance. He is normal weight. He is not ill-appearing, toxic-appearing or diaphoretic. HENT: Head: Normocephalic and atraumatic. Nose: Nose normal. Eyes: General: No scleral icterus. Right eye: No discharge. Left eye: No discharge. Extraocular Movements: Extraocular movements intact. Conjunctiva/sclera: Conjunctivae normal. Pupils: Pupils are equal, round, and reactive to light. Cardiovascular: Rate and Rhythm: Normal rate and regular rhythm. Pulses: Normal pulses. Heart sounds: Normal heart sounds. No murmur heard. No friction rub. No gallop. Pulmonary: Effort: No respiratory distress. Breath sounds: Normal breath sounds. No stridor. No wheezing, rhonchi or rales. Chest: Chest wall: No tenderness. Abdominal: General: Abdomen is flat. Bowel sounds are normal. There is no distension. Palpations: Abdomen is soft. There is no mass. Tenderness: There is no abdominal tenderness. There is no right CVA tenderness, left CVA tenderness, guarding or rebound. Hernia: No hernia is present. Musculoskeletal: General: Normal range of motion. Cervical back: Normal range of motion and neck supple. Skin: General: Skin is warm and dry. Neurological: General: No focal deficit present. Mental Status: He is alert and oriented to person, place, and time. Psychiatric: Mood and Affect: Mood normal. Behavior: Behavior normal. Assessment/Plan (K44.9, K21.00) Hiatal hernia with GERD and esophagitis (primary encounter diagnosis) 1. Hiatal hernia with GERD and esophagitis - omeprazole (PRILOSEC) 20 mg capsule; Take 1 capsule by mouth once daily. Dispense: 90 capsule; Refill: 2 - famotidine (PEPCID) 20 mg tablet; Take 1 tablet by mouth once daily as needed (for heartburn). Dispense: 90 tablet; Refill: 2 - Will try to reduce from Prilosec 40 mg to 20 mg daily - Start Pepcid 20 mg daily - Is to contact me if any further weight loss, continue to track this at home. Continue high protein diet - Mychart message me in 3 mos with symptom update, if improved will try to d/c PPI completely I spent a total of 20 minutes (more content not included)... [facility] 08-22-2023 History of Presen t illness Narrative CHIEF COMPLAINT: Patient presents with: Procedure Follow Up: EGD 05/11/23 HPI Anival Moya is a 33 year old male here today for Procedure Follow Up (EGD 05/11/23). Seen last for GERD, started on Prilosec 40 mg daily. Currently feeling well, no further issues with reflux. Trying to adhere to reflux precautions. Notes some weight loss of 10-15 lbs. In the past several mos. Feels as though this could be 2/2 dietary changes. Denies changes in bowel habits, N/V, abd pain. EGD 04/2023 Impression: - Normal first portion of the duodenum, second portion of the duodenum and third portion of the duodenum. - Erythematous mucosa in the antrum. Biopsied. - Z-line irregular, 36 cm from the incisors. Biopsied. Small hiatal hernia A. Stomach, antrum, biopsy: - Gastric antral body type mucosa with no pathologic diagnostic abnormality; see comment. B. Esophagogastric junction, biopsy: - Squamous mucosa and slight chronically inflamed gastric mucosa with foveolar hyperplasia; negative for intraepithelial eosinophils, intestinal metaplasia or dysplasia. OV 03/2023 Anival Moya is a 33 year old male who presents for GERD (He has had reflux for years). Chronic issues with GERD for years. Reports EGD around age of 25, had dilation at this time. Has been on Prilosec 20 mg daily since the beginning of this year with some relief but not complete improvement. Reports epigastric/LUQ pain, unchanged with eating. Denies dysphagia, odynophagia, weight loss, bloody/black colored stools, regular NSAID usage. Current Outpatient Medications Medication Sig omeprazole (PRILOSEC) 40 mg capsule Take 1 capsule by mouth once daily. On empty stomach at least 30 minutes before meal. No current facility-administered medications for this visit. ALLERGIES No Known Allergies Social History Tobacco Use Smoking status: Never Smokeless tobacco: Never Vaping Use Vaping Use: Never used Substance Use Topics Alcohol use: Yes Comment: once a month Drug use: No PAST MEDICAL HISTORY Diagnosis Date Acid reflux Arthritis PAST SURGICAL HISTORY Procedure Laterality Date EGD W/O [facility] SPEC VARICIES INJ 05/11/2023 TONSILLECTOMY PRIMARY/SECONDARY <AGE 14 Tonsillectomy FAMILY HISTORY Problem Relation Age of Onset None Mother None Father Colon Cancer No Family History REVIEW OF SYSTEMS Review of Systems Constitutional: Positive for unexpected weight change. All other systems reviewed and are negative. PHYSICAL EXAM BP 126/84 Pulse 60 Ht 179.1 cm (5' 10.5 ) Wt 79.4 kg (175 lb) BMI 24.75 kg/m Physical Exam Constitutional: General: He is not in acute distress. Appearance: Normal appearance. He is normal weight. He is not ill-appearing, toxic-appearing or diaphoretic. HENT: Head: Normocephalic and atraumatic. Nose: Nose normal. Eyes: General: No scleral icterus. Right eye: No discharge. Left eye: No discharge. Extraocular Movements: Extraocular movements intact. Conjunctiva/sclera: Conjunctivae normal. Pupils: Pupils are equal, round, and reactive to light. Cardiovascular: Rate and Rhythm: Normal rate and regular rhythm. Pulses: Normal pulses. Heart sounds: Normal heart sounds. No murmur heard. No friction rub. No gallop. Pulmonary: Effort: No respiratory distress. Breath sounds: Normal breath sounds. No stridor. No wheezing, rhonchi or rales. Chest: Chest wall: No tenderness. Abdominal: General: Abdomen is flat. Bowel sounds are normal. There is no distension. Palpations: Abdomen is soft. There is no mass. Tenderness: There is no abdominal tenderness. There is no right CVA tenderness, left CVA tenderness, guarding or rebound. Hernia: No hernia is present. Musculoskeletal: General: Normal range of motion. Cervical back: Normal range of motion and neck supple. Skin: General: Skin is warm and dry. Neurological: General: No focal deficit present. Mental Status: He is alert and oriented to person, place, and time. Psychiatric: Mood and Affect: Mood normal. Behavior: Behavior normal. Assessment/Plan (K44.9, K21.00) Hiatal hernia with GERD and esophagitis (primary encounter diagnosis) 1. Hiatal hernia with GERD and esophagitis - omeprazole (PRILOSEC) 20 mg capsule; Take 1 capsule by mouth once daily. Dispense: 90 capsule; Refill: 2 - famotidine (PEPCID) 20 mg tablet; Take 1 tablet by mouth once daily as needed (for heartburn). Dispense: 90 tablet; Refill: 2 - Will try to reduce from Prilosec 40 mg to 20 mg daily - Start Pepcid 20 mg daily - Is to contact me if any further weight loss, continue to track this at home. Continue high protein diet - Mychart message me in 3 mos with symptom update, if improved will try to d/c PPI completely I spent a total of 20 minutes on the date of the service which included preparing to see the patient, [id number] patient care, completing clinical documentation, obtaining and/or reviewing separately obtained history, performing a medically appropriate examination, counseling and educating the patient/family/caregiver, ordering medications, tests, or procedures, communicating with other HCPs (not separately reported), independently interpreting results (not separately reported), communicating results to the patient/family/caregiver, and care coordination (not separately reported). Evie Argueta PA-C August 22, 2023 11:15 AM documented in this encounter [facility] 08-05-2023 Note HNO ID: [id number] Author: Heaven Quiroga RDMS Service: ? Author Type: Truck Driver Helper Type: Progress Notes Filed: 08/05/2023 3:15 PM Note Text: Radiology Service Progress Note PATIENT NAME: Anival Moya DATE OF SERVICE: August 05, 2023 TIME: 3:15 PM PATIENT IDENTITY VERIFICATION COMPLETED USING TWO (2) IDENTIFIERS: Name and Date of confirmed by patient verbally. FALL SCREENING: Has the patient had 2 falls in the last year or 1 fall with injury or currently using an Ambulatory Assistive Device (Walker, Cane, Wheelchair, Crutches, etc.)? No PATIENT GENDER DATA: Male PATIENT RELEVANT IMPLANT DATA REVIEWED: Not Applicable RADIOLOGY DEPARTMENT: Ultrasound PERIPHERAL IV DATA: Not applicable SIGNED BY: Heaven Quiroga RDMS RVT August 05, 2023 3:15 PM [facility] 07-29-2023 Note HNO ID: [id number] Author: Murali Santamaria APRN.TREADLE CUT OFF SAW OPERATOR Service: ? Author Type: Nurse Practitioner Type: Progress Notes Filed: 07/29/2023 2:59 PM Note Text: SUBJECTIVE Anival Moya is a 33 year old male here today for a check up on his medical problems. Chief Complaint Patient presents with: UTI: sanchez with urination and foul order Had STD check and was cleared HPI Anival Moya is a 33 year old male. Presents for issues with burning with urination, odor to urine at times. Recent STD check with urgent care and was negative. Girlfriend has some same symptoms but tested negative. Onset was about over a year ago, maybe close to two years. His girlfriend has similar symptoms. Symptoms all of the time, burning off and on but sensation that he still needs to urinate is most of the time. Some incomplete bladder emptying. Wakes up at night occasionally to urinate. No changes in stream force. No rash. Does not drink a lot of caffeine. Drinks a lot of water. Previously had an episode where he had a very severe testicle pain on the right and went to the hospital for this, ultrasound showed no issues. His medications were reviewed today and his list is now up to date. Medications Current Outpatient Medications Medication Sig omeprazole (PRILOSEC) 40 mg capsule Take 1 capsule by mouth once daily. On empty stomach at least 30 minutes before meal. No current facility-administered medications for this visit. ALLERGIES No Known Allergies ACTIVE PROBLEM LIST Palpitations - 01/21/2023 Sprain of Ankle, Unspecified Site - 06/13/2006 Social History Tobacco Use Smoking status: Never Smokeless tobacco: Never Vaping Use Vaping Use: Never used Substance Use Topics Alcohol use: Yes Comment: once a month Drug use: No Review of Systems Genitourinary: Positive for dysuria. Negative for decreased urine volume, enuresis, flank pain, frequency, genital sores, hematuria, penile discharge, penile pain, penile swelling, scrotal swelling and testicular pain. OBJECTIVE BP 124/82 Pulse 76 Wt 174 lb (78.9kg) SpO2 98% Physical Exam Vitals and nursing note reviewed. Constitutional: General: He is awake. He is not in acute distress. Appearance: Normal appearance. He is well-developed and well-groomed. He is not ill-appearing, toxic-appearing or diaphoretic. HENT: Head: Normocephalic. Right Ear: External ear normal. Left Ear: External ear normal. Nose: Nose normal. Eyes: General: Vision grossly intact. Conjunctiva/sclera: Conjunctivae normal. Pupils: Pupils are equal, round, and reactive to light. Neck: Vascular: No JVD. Trachea: Trachea normal. Pulmonary: Effort: Pulmonary effort is normal. No accessory muscle usage, prolonged expiration or respiratory distress. Musculoskeletal: Cervical back: Neck supple. Skin: General: Skin is warm and dry. Capillary Refill: Capillary refill takes less than 2 seconds. Neurological: General: No focal deficit present. Mental Status: He is alert and oriented to person, place, and time. Mental status is at baseline. Psychiatric: Attention and Perception: Attention and perception normal. Mood and Affect: Mood and affect normal. Speech: Speech normal. Behavior: Behavior normal. Behavior is cooperative. Thought Content: Thought content normal. Cognition and Memory: Cognition and memory normal. Judgment: Judgment normal. ASSESSMENT/PLAN: 1. Dysuria - ICD9: 788.1, ICD10: R30.0 (primary diagnosis) Urine dip normal, we will [facility] and [facility] STD panel checked. Suspect that given the duration of symptoms being 1-2 years it is likely not infectious in etiology. Check ultrasounds and we will refer to urology. - CONSULT TO UROLOGY - US PELVIS BLADDER - US SCROTUM AND CONTENTS 2. Urinary retention - ICD9: 788.20, ICD10: R33.9 See above. Sensation of retention/in complete bladder emptying. - US PELVIS BLADDER - US SCROTUM AND CONTENTS Portions of this note have been entered by ancillary staff. I have reviewed and when necessary edited, so that they are an adequate record of my encounter with this patient Please note that parts of this document were created using voice recognition software and therefore may contain grammatical errors. Patient verbalizes understanding of instructions from today's visit and in agreement with treatment plan. Questions answered. Agrees to call the office if questions, concerns of issues with acute symptoms not improving or if they worsen. See diagnoses and orders for additional plan(s). Allergies and medications were reviewed, list was updated, and refills given if needed. Past medical, surgical, social, and family history reviewed and updated as appropriate. Encouraged proper diet AND exercise as well as compliance with taking medications. Age-appropriate health preventative measures were discussed. Return if symptoms wo (more content not included)... [facility] 07-29-2023 History of Presen t illness Narrative SUBJECTIVE Anival Moya is a 33 year old male here today for a check up on his medical problems. Chief Complaint Patient presents with: UTI: sanchez with urination and foul order Had STD check and was cleared HPI Anival Moya is a 33 year old male. Presents for issues with burning with urination, odor to urine at times. Recent STD check with urgent care and was negative. Girlfriend has some same symptoms but tested negative. Onset was about over a year ago, maybe close to two years. His girlfriend has similar symptoms. Symptoms all of the time, burning off and on but sensation that he still needs to urinate is most of the time. Some incomplete bladder emptying. Wakes up at night occasionally to urinate. No changes in stream force. No rash. Does not drink a lot of caffeine. Drinks a lot of water. Previously had an episode where he had a very severe testicle pain on the right and went to the hospital for this, ultrasound showed no issues. His medications were reviewed today and his list is now up to date. Medications Current Outpatient Medications Medication Sig omeprazole (PRILOSEC) 40 mg capsule Take 1 capsule by mouth once daily. On empty stomach at least 30 minutes before meal. No current facility-administered medications for this visit. ALLERGIES No Known Allergies ACTIVE PROBLEM LIST Palpitations - 01/21/2023 Sprain of Ankle, Unspecified Site - 06/13/2006 Social History Tobacco Use Smoking status: Never Smokeless tobacco: Never Vaping Use Vaping Use: Never used Substance Use Topics Alcohol use: Yes Comment: once a month Drug use: No Review of Systems Genitourinary: Positive for dysuria. Negative for decreased urine volume, enuresis, flank pain, frequency, genital sores, hematuria, penile discharge, penile pain, penile swelling, scrotal swelling and testicular pain. OBJECTIVE BP 124/82 Pulse 76 Wt 174 lb (78.9kg) SpO2 98% Physical Exam Vitals and nursing note reviewed. Constitutional: General: He is awake. He is not in acute distress. Appearance: Normal appearance. He is well-developed and well-groomed. He is not ill-appearing, toxic-appearing or diaphoretic. HENT: Head: Normocephalic. Right Ear: External ear normal. Left Ear: External ear normal. Nose: Nose normal. Eyes: General: Vision grossly intact. Conjunctiva/sclera: Conjunctivae normal. Pupils: Pupils are equal, round, and reactive to light. Neck: Vascular: No JVD. Trachea: Trachea normal. Pulmonary: Effort: Pulmonary effort is normal. No accessory muscle usage, prolonged expiration or respiratory distress. Musculoskeletal: Cervical back: Neck supple. Skin: General: Skin is warm and dry. Capillary Refill: Capillary refill takes less than 2 seconds. Neurological: General: No focal deficit present. Mental Status: He is alert and oriented to person, place, and time. Mental status is at baseline. Psychiatric: Attention and Perception: Attention and perception normal. Mood and Affect: Mood and affect normal. Speech: Speech normal. Behavior: Behavior normal. Behavior is cooperative. Thought Content: Thought content normal. Cognition and Memory: Cognition and memory normal. Judgment: Judgment normal. ASSESSMENT/PLAN: 1. Dysuria - ICD9: 788.1, ICD10: R30.0 (primary diagnosis) Urine dip normal, we [facility] STD panel checked. Suspect that given the duration of symptoms being 1-2 years it is likely not infectious in etiology. Check ultrasounds and we will refer to urology. - CONSULT TO UROLOGY - US PELVIS BLADDER - US SCROTUM AND CONTENTS 2. Urinary retention - ICD9: 788.20, ICD10: R33.9 See above. Sensation of retention/in complete bladder emptying. - US PELVIS BLADDER - US SCROTUM AND CONTENTS Portions of this note have been entered by ancillary staff. I have reviewed and when necessary edited, so that they are an adequate record of my encounter with this patient Please note that parts of this document were created using voice recognition software and therefore may contain grammatical errors. Patient verbalizes understanding of instructions from today's visit and in agreement with treatment plan. Questions answered. Agrees to call the office if questions, concerns of issues with acute symptoms not improving or if they worsen. See diagnoses and orders for additional plan(s). Allergies and medications were reviewed, list was updated, and refills given if needed. Past medical, surgical, social, and family history reviewed and updated as appropriate. Encouraged proper diet & exercise as well as compliance with taking medications. Age-appropriate health preventative measures were discussed. Return if symptoms worsen or fail to improve, for Keep next scheduled appointment.. REY Castillo documented in this encounter [facility] 07-01-2023 Note HNO ID: [id number] Author: Murali Santamaria APRN.CNP Service: ? Author Type: Nurse Practitioner Type: Progress Notes Filed: 07/01/2023 4:09 PM Note Text: CHIEF COMPLAINT: Patient presents with: Physical: has a Wellness form that needs completed HISTORY: Anival Moya is a 33 year old male who presents 07/01/2023 for his Yearly Physical Exam. They are here today for a wellness exam. Does wear a seatbelt when riding in a car. Does have smoke detectors and a carbon monoxide detector in the home. Is able to complete ADL's with independence. Other Providers: Saw cardiology with [facility] in the past Depression Screen Q1: Over the past two weeks, have you felt down, depressed or hopeless? No Q2: Over the past two weeks, have you felt little interest or pleasure in doing things? No Home status: Lives with [employer], renting Current job: [employer] Current exercise habits: Active, likes to play disc golf Dietary habits: Tries to eat healthy Hearing difficulties: no Safe in current home environment: Yes Tobacco: none ETOH: Once per week Family History Cancer Colon: no Prostate: no Past Medical History: PAST MEDICAL HISTORY Diagnosis Date Acid reflux Arthritis Family Medical History: FAMILY HISTORY Problem Relation Age of Onset None Mother None Father Colon Cancer No Family History Social History: Social History Tobacco Use Smoking status: Never Smokeless tobacco: Never Vaping Use Vaping Use: Never used Substance Use Topics Alcohol use: Yes Comment: once a month Drug use: No Allergies: ALLERGIES No Known Allergies Medications: Current Outpatient Medications Medication Sig omeprazole (PRILOSEC) 40 mg capsule Take 1 capsule by mouth once daily. On empty stomach at least 30 minutes before meal. No current facility-administered medications for this visit. Chronic Problem List: ACTIVE PROBLEM LIST Palpitations - 01/21/2023 Sprain of Ankle, Unspecified Site - 06/13/2006 Review of Systems Review of Systems Constitutional: Negative. Respiratory: Negative. Cardiovascular: Negative. OBJECTIVE BP 118/86 Pulse 78 Ht 5' 10.5 (1.79m) Wt 173 lb (78.5kg) SpO2 98% BMI 24.46 kg/(m2). Physical Exam Vitals and nursing note reviewed. Constitutional: General: He is awake. He is not in acute distress. Appearance: Normal appearance. He is well-developed and well-groomed. He is not ill-appearing, toxic-appearing or diaphoretic. HENT: Head: Normocephalic. Right Ear: External ear normal. Left Ear: External ear normal. Nose: Nose normal. Eyes: General: Vision grossly intact. Conjunctiva/sclera: Conjunctivae normal. Pupils: Pupils are equal, round, and reactive to light. Neck: Vascular: No JVD. Trachea: Trachea normal. Cardiovascular: Rate and Rhythm: Normal rate and regular rhythm. Pulses: Normal pulses. Heart sounds: Normal heart sounds. No murmur heard. Pulmonary: Effort: Pulmonary effort is normal. No accessory muscle usage, prolonged expiration or respiratory distress. Breath sounds: Normal breath sounds. Musculoskeletal: Cervical back: Neck supple. Skin: General: Skin is warm and dry. Capillary Refill: Capillary refill takes less than 2 seconds. Neurological: General: No focal deficit present. Mental Status: He is alert and oriented to person, place, and time. Mental status is at baseline. Psychiatric: Attention and Perception: Attention and perception normal. Mood and Affect: Mood and affect normal. Speech: Speech normal. Behavior: Behavior normal. Behavior is cooperative. Thought Content: Thought content normal. Cognition and Memory: Cognition and memory normal. Judgment: Judgment normal. ASSESSMENT/PLAN: 1. Wellness examination - ICD9: V70.0, ICD10: Z00.00 (primary diagnosis) - Counseled on healthy diet and regular exercise - Counseled on limiting alcohol intake to 2 drinks per day - Depression screening tool completed and reviewed with patient. Based on score and interview, patient is not at risk for depression and recommended no further intervention at this time. - Follow up for annual exam in one year - DEPRESSION SCREENING/ASSESSMENT 2. Special screening examination for viral disease - ICD9: V73.99, ICD10: Z11.59 - HEPATITIS C ANTIBODY IA WITH CONFIRMATION 3. Screening for HIV (human immunodeficiency virus) - ICD9: V73.89, ICD10: Z11.4 - HIV 1 2 COMBO(AG/AB),WITH REFLEX TO DIFFERENTIATION 4. Screening for lipid disorders - ICD9: V77.91, ICD10: Z13.220 - LIPID PANEL BASIC 5. Encounter for screening for diabetes mellitus - ICD9: V77.1, ICD10: Z13.1 - COMP METABOLIC PANEL 6. Gastroesophageal reflux disease, unspecified whether esophagitis present - ICD9: 530.81, ICD10: K21.9 - OMEPRAZOLE 40 MG CAPSULE,DELAYED RELEASE Wellness exam completed. Health maintenance reviewed and updated. Chronic conditions and medications reviewed an (more content not included)... [facility] 07-01-2023 History of Presen t illness Narrative CHIEF COMPLAINT: Patient presents with: Physical: has a Wellness form that needs completed HISTORY: Anival Moya is a 33 year old male who presents 07/01/2023 for his Yearly Physical Exam. They are here today for a wellness exam. Does wear a seatbelt when riding in a car. Does have smoke detectors and a carbon monoxide detector in the home. Is able to complete ADL's with independence. Other Providers: Saw cardiology with [facility] in the past Depression Screen Q1: Over the past two weeks, have you felt down, depressed or hopeless? No Q2: Over the past two weeks, have you felt little interest or pleasure in doing things? No Home status: Lives with [employer], renting Current job: [employer] Current exercise habits: Active, likes to play disc golf Dietary habits: Tries to eat healthy Hearing difficulties: no Safe in current home environment: Yes Tobacco: none ETOH: Once per week Family History Cancer Colon: no Prostate: no Past Medical History: PAST MEDICAL HISTORY Diagnosis Date Acid reflux Arthritis Family Medical History: FAMILY HISTORY Problem Relation Age of Onset None Mother None Father Colon Cancer No Family History Social History: Social History Tobacco Use Smoking status: Never Smokeless tobacco: Never Vaping Use Vaping Use: Never used Substance Use Topics Alcohol use: Yes Comment: once a month Drug use: No Allergies: ALLERGIES No Known Allergies Medications: Current Outpatient Medications Medication Sig omeprazole (PRILOSEC) 40 mg capsule Take 1 capsule by mouth once daily. On empty stomach at least 30 minutes before meal. No current facility-administered medications for this visit. Chronic Problem List: ACTIVE PROBLEM LIST Palpitations - 01/21/2023 Sprain of Ankle, Unspecified Site - 06/13/2006 Review of Systems Review of Systems Constitutional: Negative. Respiratory: Negative. Cardiovascular: Negative. OBJECTIVE BP 118/86 Pulse 78 Ht 5' 10.5 (1.79m) Wt 173 lb (78.5kg) SpO2 98% BMI 24.46 kg/(m^2). Physical Exam Vitals and nursing note reviewed. Constitutional: General: He is awake. He is not in acute distress. Appearance: Normal appearance. He is well-developed and well-groomed. He is not ill-appearing, toxic-appearing or diaphoretic. HENT: Head: Normocephalic. Right Ear: External ear normal. Left Ear: External ear normal. Nose: Nose normal. Eyes: General: Vision grossly intact. Conjunctiva/sclera: Conjunctivae normal. Pupils: Pupils are equal, round, and reactive to light. Neck: Vascular: No JVD. Trachea: Trachea normal. Cardiovascular: Rate and Rhythm: Normal rate and regular rhythm. Pulses: Normal pulses. Heart sounds: Normal heart sounds. No murmur heard. Pulmonary: Effort: Pulmonary effort is normal. No accessory muscle usage, prolonged expiration or respiratory distress. Breath sounds: Normal breath sounds. Musculoskeletal: Cervical back: Neck supple. Skin: General: Skin is warm and dry. Capillary Refill: Capillary refill takes less than 2 seconds. Neurological: General: No focal deficit present. Mental Status: He is alert and oriented to person, place, and time. Mental status is at baseline. Psychiatric: Attention and Perception: Attention and perception normal. Mood and Affect: Mood and affect normal. Speech: Speech normal. Behavior: Behavior normal. Behavior is cooperative. Thought Content: Thought content normal. Cognition and Memory: Cognition and memory normal. Judgment: Judgment normal. ASSESSMENT/PLAN: 1. Wellness examination - ICD9: V70.0, ICD10: Z00.00 (primary diagnosis) - Counseled on healthy diet and regular exercise - Counseled on limiting alcohol intake to 2 drinks per day - Depression screening tool completed and reviewed with patient. Based on score and interview, patient is not at risk for depression and recommended no further intervention at this time. - Follow up for annual exam in one year - DEPRESSION SCREENING/ASSESSMENT 2. Special screening examination for viral disease - ICD9: V73.99, ICD10: Z11.59 - HEPATITIS C ANTIBODY IA WITH CONFIRMATION 3. Screening for HIV (human immunodeficiency virus) - ICD9: V73.89, ICD10: Z11.4 - HIV 1 2 COMBO(AG/AB),WITH REFLEX TO DIFFERENTIATION 4. Screening for lipid disorders - ICD9: V77.91, ICD10: Z13.220 - LIPID PANEL BASIC 5. Encounter for screening for diabetes mellitus - ICD9: V77.1, ICD10: Z13.1 - COMP METABOLIC PANEL 6. Gastroesophageal reflux disease, unspecified whether esophagitis present - ICD9: 530.81, ICD10: K21.9 - OMEPRAZOLE 40 MG CAPSULE,DELAYED RELEASE Wellness exam completed. Health maintenance reviewed and updated. Chronic conditions and medications reviewed and updated as needed. Encouraged regular physical activity as tolerated, Healthy diet, and health promoting lifestyle. Encouraged regular eye doctor and dental visits. Portions of this note have been entered by ancillary staff. I have reviewed and when necessary edited, so that they are an adequate record of my encounter with this patient Please note that parts of this document were created using [employer] and therefore may contain grammatical errors. Patient verbalizes understanding of instructions from today's visit and in agreement with treatment plan. Questions answered. Agrees to call the office if questions, concerns or issues with acute symptoms not improving or if they worsen. See diagnoses and orders for additional plan(s). Allergies and medications were reviewed, list was updated, and refills given if needed. Past medical, surgical, social, and family history reviewed and updated as appropriate. Encouraged proper diet & exercise as well as compliance with taking medications. Age-appropriate health preventative measures were discussed. Return if symptoms worsen or fail to improve, for Keep next scheduled appointment.. Murali Santamaria APRN-RAFI documented in this encounter [facility] 05-20-2023 Note HNO ID: [id number] Author: Murali Santamaria APRN.CNP Service: ? Author Type: Nurse Practitioner Type: Progress Notes Filed: 05/23/2023 7:18 AM Note Text: SUBJECTIVE Anival Moya is a 33 year old male here today for a check up on his medical problems. Chief Complaint Patient presents with: Follow Up: Scope results HPI Anival Moya is a 33 year old male established patient. Since last visit he went to ENT, some mild hearing loss, bad ear infections when younger but otherwise no issues. He did have an EGD since last visit with Dr. Ojeda. Small hiatal hernia. Negative for precancerous cells, no h pylori. EGD showed GERD/reflux. Feeling pretty good this month. No episodes. We ruled out any cardiac issues. Really ruled out neuro issues except could consider tilt table test if symptoms return. His medications were reviewed today and his list is now up to date. Medications Current Outpatient Medications Medication Sig omeprazole (PRILOSEC) 40 mg capsule Take 1 capsule by mouth once daily. On empty stomach at least 30 minutes before meal. No current facility-administered medications for this visit. ALLERGIES No Known Allergies ACTIVE PROBLEM LIST Palpitations - 01/21/2023 Sprain of Ankle, Unspecified Site - 06/13/2006 Social History Tobacco Use Smoking status: Never Smokeless tobacco: Never Vaping Use Vaping Use: Never used Substance Use Topics Alcohol use: Yes Comment: once a month Drug use: No Review of Systems Constitutional: Negative. Respiratory: Negative. Cardiovascular: Negative. OBJECTIVE BP 130/98 Pulse 68 Resp 16 Wt 183 lb (83.0kg) SpO2 98% Physical Exam Vitals and nursing note reviewed. Constitutional: General: He is awake. He is not in acute distress. Appearance: Normal appearance. He is well-developed and well-groomed. He is not ill-appearing, toxic-appearing or diaphoretic. HENT: Head: Normocephalic. Right Ear: External ear normal. Left Ear: External ear normal. Nose: Nose normal. Eyes: General: Vision grossly intact. Conjunctiva/sclera: Conjunctivae normal. Pupils: Pupils are equal, round, and reactive to light. Neck: Vascular: No JVD. Trachea: Trachea normal. Cardiovascular: Rate and Rhythm: Normal rate and regular rhythm. Pulses: Normal pulses. Heart sounds: Normal heart sounds. No murmur heard. Pulmonary: Effort: Pulmonary effort is normal. No accessory muscle usage, prolonged expiration or respiratory distress. Breath sounds: Normal breath sounds. Musculoskeletal: Cervical back: Neck supple. Skin: General: Skin is warm and dry. Capillary Refill: Capillary refill takes less than 2 seconds. Neurological: General: No focal deficit present. Mental Status: He is alert and oriented to person, place, and time. Mental status is at baseline. Psychiatric: Attention and Perception: Attention and perception normal. Mood and Affect: Mood and affect normal. Speech: Speech normal. Behavior: Behavior normal. Behavior is cooperative. Thought Content: Thought content normal. Cognition and Memory: Cognition and memory normal. Judgment: Judgment normal. ASSESSMENT/PLAN: 1. Gastroesophageal reflux disease without esophagitis - ICD9: 530.81, ICD10: K21.9 (primary diagnosis) - Discussed lifestyle modifications including losing weight, limiting caffeine, no meals three hours before sleep, and head of bed elevation - Continue treatment with PPI 2. Near syncope - ICD9: 780.2, ICD10: R55 No symptoms in recent months, will monitor, prior cardiac work up and neuro work up and ENT work up stable. If returns consider tilt table. 3. Elevated blood-pressure reading, without diagnosis of hypertension - ICD9: 796.2, ICD10: R03.0 - Encouraged dietary sodium restriction/DASH diet - Recommended regular aerobic exercise. - Encouraged avoidance of excessive alcohol intake - Discussed need and benefit for weight loss. - Goal of BP <130/80 Portions of this note have been entered by ancillary staff. I have reviewed and when necessary edited, so that they are an adequate record of my encounter with this patient Please note that parts of this document were created using voice recognition software and therefore may contain grammatical errors. Patient verbalizes understanding of instructions from today's visit and in agreement with treatment plan. Questions answered. Agrees to call the office if questions, concerns of issues with acute symptoms not improving or if they worsen. See diagnoses and orders for additional plan(s). Allergies and medications were reviewed, list was updated, and refills given if needed. Past medical, surgical, social, and family history reviewed and updated as appropriate. Encouraged proper diet AND exercise as well as compliance with taking medications. Age-appropriate health preventative measures were discussed. Return in about 3 months (around 08/20/2023) for re (more content not included)... [facility] 05-20-2023 Instructions Murali Santamaria APRN.CNP - 05/20/2023 3:10 PM EDT - Encouraged dietary sodium restriction/DASH diet - Recommended regular aerobic exercise. - Encouraged avoidance of excessive alcohol intake - Discussed need and benefit for weight loss. - Goal of BP <130/80 - Cut down the [place] aim for 1 can a day documented in this encounter [facility] 05-20-2023 History of Presen t illness Narrative SUBJECTIVE Anival Moya is a 33 year old male here today for a check up on his medical problems. Chief Complaint Patient presents with: Follow Up: Scope results HPI Anival Moya is a 33 year old male established patient. Since last visit he went to ENT, some mild hearing loss, bad ear infections when younger but otherwise no issues. He did have an EGD since last visit with Dr. Ojeda. Small hiatal hernia. Negative for precancerous cells, no h pylori. EGD showed GERD/reflux. Feeling pretty good this month. No episodes. We ruled out any cardiac issues. Really ruled out neuro issues except could consider tilt table test if symptoms return. His medications were reviewed today and his list is now up to date. Medications Current Outpatient Medications Medication Sig omeprazole (PRILOSEC) 40 mg capsule Take 1 capsule by mouth once daily. On empty stomach at least 30 minutes before meal. No current facility-administered medications for this visit. ALLERGIES No Known Allergies ACTIVE PROBLEM LIST Palpitations - 01/21/2023 Sprain of Ankle, Unspecified Site - 06/13/2006 Social History Tobacco Use Smoking status: Never Smokeless tobacco: Never Vaping Use Vaping Use: Never used Substance Use Topics Alcohol use: Yes Comment: once a month Drug use: No Review of Systems Constitutional: Negative. Respiratory: Negative. Cardiovascular: Negative. OBJECTIVE BP 130/98 Pulse 68 Resp 16 Wt 183 lb (83.0kg) SpO2 98% Physical Exam Vitals and nursing note reviewed. Constitutional: General: He is awake. He is not in acute distress. Appearance: Normal appearance. He is well-developed and well-groomed. He is not ill-appearing, toxic-appearing or diaphoretic. HENT: Head: Normocephalic. Right Ear: External ear normal. Left Ear: External ear normal. Nose: Nose normal. Eyes: General: Vision grossly intact. Conjunctiva/sclera: Conjunctivae normal. Pupils: Pupils are equal, round, and reactive to light. Neck: Vascular: No JVD. Trachea: Trachea normal. Cardiovascular: Rate and Rhythm: Normal rate and regular rhythm. Pulses: Normal pulses. Heart sounds: Normal heart sounds. No murmur heard. Pulmonary: Effort: Pulmonary effort is normal. No accessory muscle usage, prolonged expiration or respiratory distress. Breath sounds: Normal breath sounds. Musculoskeletal: Cervical back: Neck supple. Skin: General: Skin is warm and dry. Capillary Refill: Capillary refill takes less than 2 seconds. Neurological: General: No focal deficit present. Mental Status: He is alert and oriented to person, place, and time. Mental status is at baseline. Psychiatric: Attention and Perception: Attention and perception normal. Mood and Affect: Mood and affect normal. Speech: Speech normal. Behavior: Behavior normal. Behavior is cooperative. Thought Content: Thought content normal. Cognition and Memory: Cognition and memory normal. Judgment: Judgment normal. ASSESSMENT/PLAN: 1. Gastroesophageal reflux disease without esophagitis - ICD9: 530.81, ICD10: K21.9 (primary diagnosis) - Discussed lifestyle modifications including losing weight, limiting caffeine, no meals three hours before sleep, and head of bed elevation - Continue treatment with PPI 2. Near syncope - ICD9: 780.2, ICD10: R55 No symptoms in recent months, will monitor, prior cardiac work up and neuro work up and ENT work up stable. If returns consider tilt table. 3. Elevated blood-pressure reading, without diagnosis of hypertension - ICD9: 796.2, ICD10: R03.0 - Encouraged dietary sodium restriction/DASH diet - Recommended regular aerobic exercise. - Encouraged avoidance of excessive alcohol intake - Discussed need and benefit for weight loss. - Goal of BP <130/80 Portions of this note have been entered by ancillary staff. I have reviewed and when necessary edited, so that they are an adequate record of my encounter with this patient Please note that parts of this document were created using voice recognition software and therefore may contain grammatical errors. Patient verbalizes understanding of instructions from today's visit and in agreement with treatment plan. Questions answered. Agrees to call the office if questions, concerns of issues with acute symptoms not improving or if they worsen. See diagnoses and orders for additional plan(s). Allergies and medications were reviewed, list was updated, and refills given if needed. Past medical, surgical, social, and family history reviewed and updated as appropriate. Encouraged proper diet & exercise as well as compliance with taking medications. Age-appropriate health preventative measures were discussed. Return in about 3 months (around 08/20/2023) for recheck on blood pressure. Murali Santamaria APRN-RAFI documented in this encounter [facility] 04-13-2023 Note HNO ID: [id number] Author: Evie Argueta PA-C Service: ? Author Type: Physician Compliance Associate Type: Progress Notes Filed: 04/13/2023 3:14 PM Note Text: CHIEF COMPLAINT: GERD HPI: Anival Moya is a 33 year old male who presents for GERD (He has had reflux for years). Chronic issues with GERD for years. Reports EGD around age of 25, had dilation at this time. Has been on Prilosec 20 mg daily since the beginning of this year with some relief but not complete improvement. Reports epigastric/LUQ pain, unchanged with eating. Denies dysphagia, odynophagia, weight loss, bloody/black colored stools, regular NSAID usage. Record Review: [facility] / Outside records reviewed. PAST MEDICAL HISTORY Diagnosis Date - Acid reflux PAST SURGICAL HISTORY Procedure Laterality Date - TONSILLECTOMY PRIMARY/SECONDARY Tonsillectomy Allergies: ALLERGIES No Known Allergies Medications: - Omeprazole Magnesium 20 mg tablet Take 20 mg by mouth. - famotidine (PEPCID) 40 mg tablet Take 1 tablet by mouth once daily. - fluticasone (FLONASE) 50 mcg/actuation nasal spray Use 2 Sprays in each nostril once daily. Rinse mouth after use. - busPIRone (BUSPAR) 5 mg tablet Take 1 tablet by mouth three times daily as needed. - meclizine (ANTIVERT) 25 mg tab Take 25 mg by mouth three times daily. 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 Gastrointestinal: Positive for abdominal pain. Gas All other systems reviewed and are negative. Are you taking any blood thinners? No Physical Examination: BP 132/82 Pulse 63 Ht 180.3 cm (5' 11 ) Wt 81.6 kg (180 lb) BMI 25.10 kg/m? Physical Exam Constitutional: General: He is not in acute distress. Appearance: Normal appearance. He is normal weight. He is not ill-appearing, toxic-appearing or diaphoretic. HENT: Head: Normocephalic and atraumatic. Nose: Nose normal. Eyes: General: No scleral icterus. Right eye: No discharge. Left eye: No discharge. Extraocular Movements: Extraocular movements intact. Conjunctiva/sclera: Conjunctivae normal. Pupils: Pupils are equal, round, and reactive to light. Cardiovascular: Rate and Rhythm: Normal rate and regular rhythm. Pulses: Normal pulses. Heart sounds: Normal heart sounds. No murmur heard. No friction rub. No gallop. Pulmonary: Effort: No respiratory distress. Breath sounds: Normal breath sounds. No stridor. No wheezing, rhonchi or rales. Chest: Chest wall: No tenderness. Abdominal: General: Abdomen is flat. Bowel sounds are normal. There is no distension. Palpations: Abdomen is soft. There is no mass. Tenderness: There is abdominal tenderness (Mild TTP LUQ, epigastric region). There is no right CVA tenderness, left CVA tenderness, guarding or rebound. Hernia: No hernia is present. Musculoskeletal: General: Normal range of motion. Cervical back: Normal range of motion and neck supple. Skin: General: Skin is warm and dry. Neurological: General: No focal deficit present. Mental Status: He is alert and oriented to person, place, and time. Psychiatric: Mood and Affect: Mood normal. Behavior: Behavior normal. Assessment/Plan (K21.9) Gastroesophageal reflux disease, unspecified whether esophagitis present (primary encounter diagnosis) 1. Gastroesophageal reflux disease, unspecified whether esophagitis present - EGD DIAGNOSTIC; Future - omeprazole (PRILOSEC) 40 mg capsule; Take 1 capsule by mouth once daily. On empty stomach at least 30 minutes before meal. Dispense: 30 capsule; Refill: 2 - Start Prilosec 40 mg daily - EGD to r/o H. Pylori, metaplasia - Discussed GERD precautions and provided printed edu handout I spent a total of 20 minutes on the date of the service which included preparing to see the patient, [id number] patient care, completing clinical documentation, obtaining and/or reviewing separately obtained history, performing a medically appropriate examination, counseling and educating the patient/family/caregiver, ordering medications, tests, or procedures, communicating with other HCPs (not separately reported), independently interpreting results (not separately reported), communicating results to the patient/family/caregiver, and care coordination (not separately reported). Evie Argueta PA-C April 13, 2023 3:06 PM [facility] 03-18-2023 Note HNO ID: [id number] Author: Murali Santamaria APRN.TREADLE CUT OFF SAW OPERATOR Service: ? Author Type: Nurse Practitioner Type: Progress Notes Filed: 03/18/2023 3:54 PM Note Text: SUBJECTIVE Anival Moya is a 32 year old male here today for a check up on his medical problems. Chief Complaint Patient presents with: Recheck: 4 week HPI Anival Moya is a 32 year old male who is here for follow up. Has been having symptoms of almost passing out. Seeing cardiology. Had ECHO and stress test since last visit. Also did carotid ultrasound. He was told the stress test and ECHO came back okay. Notices that noise change and pressure change makes him feel odd. Gets dizzy/lightheaded. Feels like he loses balance. No numbness, pain in upper extremities. MRI showed cervical spondylosis c5-7 without high-grade canal or foraminal compromise. GERD is stable, Thinks his left abdominal swelling is from gas. Stopped omeprazole and this improved. His medications were reviewed today and his list is now up to date. Medications Current Outpatient Medications Medication Sig fluticasone (FLONASE) 50 mcg/actuation nasal spray Use 2 Sprays in each nostril once daily. Rinse mouth after use. busPIRone (BUSPAR) 5 mg tablet Take 1 tablet by mouth three times daily as needed. meclizine (ANTIVERT) 25 mg tab Take 25 mg by mouth three times daily. famotidine (PEPCID) 40 mg tablet Take 1 tablet by mouth once daily. No current facility-administered medications for this visit. ALLERGIES No Known Allergies ACTIVE PROBLEM LIST Palpitations - 01/21/2023 Sprain of Ankle, Unspecified Site - 06/13/2006 Social History Tobacco Use Smoking status: Never Smokeless tobacco: Never Substance Use Topics Alcohol use: No Drug use: No Review of Systems HENT: Negative for ear discharge, ear pain and tinnitus. Respiratory: Negative. Cardiovascular: Negative. Neurological: Positive for dizziness and light-headedness. Negative for tremors, seizures, facial asymmetry, speech difficulty, weakness and headaches. OBJECTIVE BP 136/80 Pulse 73 Resp 16 Wt 187 lb (84.8kg) SpO2 98% Physical Exam Vitals and nursing note reviewed. Constitutional: General: He is awake. He is not in acute distress. Appearance: Normal appearance. He is well-developed and well-groomed. He is not ill-appearing, toxic-appearing or diaphoretic. HENT: Head: Normocephalic. Right Ear: Hearing, ear canal and external ear normal. Tympanic membrane is scarred. Left Ear: Hearing, ear canal and external ear normal. Tympanic membrane is scarred. Nose: Nose normal. Eyes: General: Vision grossly intact. Conjunctiva/sclera: Conjunctivae normal. Pupils: Pupils are equal, round, and reactive to light. Neck: Vascular: No JVD. Trachea: Trachea normal. Cardiovascular: Rate and Rhythm: Normal rate and regular rhythm. Pulses: Normal pulses. Heart sounds: Normal heart sounds. No murmur heard. Pulmonary: Effort: Pulmonary effort is normal. No accessory muscle usage, prolonged expiration or respiratory distress. Breath sounds: Normal breath sounds. Musculoskeletal: Cervical back: Neck supple. Skin: General: Skin is warm and dry. Capillary Refill: Capillary refill takes less than 2 seconds. Neurological: General: No focal deficit present. Mental Status: He is alert and oriented to person, place, and time. Mental status is at baseline. Psychiatric: Attention and Perception: Attention and perception normal. Mood and Affect: Mood and affect normal. Speech: Speech normal. Behavior: Behavior normal. Behavior is cooperative. Thought Content: Thought content normal. Cognition and Memory: Cognition and memory normal. Judgment: Judgment normal. ASSESSMENT/PLAN: 1. Dysfunction of both inner ears - ICD9: 386.50, ICD10: H83.93 (primary diagnosis) Send to ENT to determine if inner ear problems are causing his other symptoms. Cardiac work up negative. So far neuro work up negative. Could consider tilt table test if ENT does not find any issues. - CONSULT TO ENT 2. Near syncope - ICD9: 780.2, ICD10: R55 - CONSULT TO ENT 3. Dyspepsia - ICD9: 536.8, ICD10: R10.13 Stay on Pepcid, see GI for EGD. - FAMOTIDINE 40 MG TABLET Portions of this note have been entered by ancillary staff. I have reviewed and when necessary edited, so that they are an adequate record of my encounter with this patient Please note that parts of this document were created using voice recognition software and therefore may contain grammatical errors. Patient verbalizes understanding of instructions from today's visit and in agreement with treatment plan. Questions answered. Agrees to call the office if questions, concerns of issues with acute symptoms not improving or if they worsen. Return in about 2 months (around 05/18/2023), or if symptoms worsen or fail to improve, for recheck. Murali Santamaria APRN-RAFI [facility] 03-18-2023 History of Presen t illness Narrative SUBJECTIVE Anival Moya is a 32 year old male here today for a check up on his medical problems. Chief Complaint Patient presents with: Recheck: 4 week HPI Anival Moya is a 32 year old male who is here for follow up. Has been having symptoms of almost passing out. Seeing cardiology. Had ECHO and stress test since last visit. Also did carotid ultrasound. He was told the stress test and ECHO came back okay. Notices that noise change and pressure change makes him feel odd. Gets dizzy/lightheaded. Feels like he loses balance. No numbness, pain in upper extremities. MRI showed cervical spondylosis c5-7 without high-grade canal or foraminal compromise. GERD is stable, Thinks his left abdominal swelling is from gas. Stopped omeprazole and this improved. His medications were reviewed today and his list is now up to date. Medications Current Outpatient Medications Medication Sig fluticasone (FLONASE) 50 mcg/actuation nasal spray Use 2 Sprays in each nostril once daily. Rinse mouth after use. busPIRone (BUSPAR) 5 mg tablet Take 1 tablet by mouth three times daily as needed. meclizine (ANTIVERT) 25 mg tab Take 25 mg by mouth three times daily. famotidine (PEPCID) 40 mg tablet Take 1 tablet by mouth once daily. No current facility-administered medications for this visit. ALLERGIES No Known Allergies ACTIVE PROBLEM LIST Palpitations - 01/21/2023 Sprain of Ankle, Unspecified Site - 06/13/2006 Social History Tobacco Use Smoking status: Never Smokeless tobacco: Never Substance Use Topics Alcohol use: No Drug use: No Review of Systems HENT: Negative for ear discharge, ear pain and tinnitus. Respiratory: Negative. Cardiovascular: Negative. Neurological: Positive for dizziness and light-headedness. Negative for tremors, seizures, facial asymmetry, speech difficulty, weakness and headaches. OBJECTIVE BP 136/80 Pulse 73 Resp 16 Wt 187 lb (84.8kg) SpO2 98% Physical Exam Vitals and nursing note reviewed. Constitutional: General: He is awake. He is not in acute distress. Appearance: Normal appearance. He is well-developed and well-groomed. He is not ill-appearing, toxic-appearing or diaphoretic. HENT: Head: Normocephalic. Right Ear: Hearing, ear canal and external ear normal. Tympanic membrane is scarred. Left Ear: Hearing, ear canal and external ear normal. Tympanic membrane is scarred. Nose: Nose normal. Eyes: General: Vision grossly intact. Conjunctiva/sclera: Conjunctivae normal. Pupils: Pupils are equal, round, and reactive to light. Neck: Vascular: No JVD. Trachea: Trachea normal. Cardiovascular: Rate and Rhythm: Normal rate and regular rhythm. Pulses: Normal pulses. Heart sounds: Normal heart sounds. No murmur heard. Pulmonary: Effort: Pulmonary effort is normal. No accessory muscle usage, prolonged expiration or respiratory distress. Breath sounds: Normal breath sounds. Musculoskeletal: Cervical back: Neck supple. Skin: General: Skin is warm and dry. Capillary Refill: Capillary refill takes less than 2 seconds. Neurological: General: No focal deficit present. Mental Status: He is alert and oriented to person, place, and time. Mental status is at baseline. Psychiatric: Attention and Perception: Attention and perception normal. Mood and Affect: Mood and affect normal. Speech: Speech normal. Behavior: Behavior normal. Behavior is cooperative. Thought Content: Thought content normal. Cognition and Memory: Cognition and memory normal. Judgment: Judgment normal. ASSESSMENT/PLAN: 1. Dysfunction of both inner ears - ICD9: 386.50, ICD10: H83.93 (primary diagnosis) Send to ENT to determine if inner ear problems are causing his other symptoms. Cardiac work up negative. So far neuro work up negative. Could consider tilt table test if ENT does not find any issues. - CONSULT TO ENT 2. Near syncope - ICD9: 780.2, ICD10: R55 - CONSULT TO ENT 3. Dyspepsia - ICD9: 536.8, ICD10: R10.13 Stay on Pepcid, see GI for EGD. - FAMOTIDINE 40 MG TABLET Portions of this note have been entered by ancillary staff. I have reviewed and when necessary edited, so that they are an adequate record of my encounter with this patient Please note that parts of this document were created using voice recognition software and therefore may contain grammatical errors. Patient verbalizes understanding of instructions from today's visit and in agreement with treatment plan. Questions answered. Agrees to call the office if questions, concerns of issues with acute symptoms not improving or if they worsen. Return in about 2 months (around 05/18/2023), or if symptoms worsen or fail to improve, for recheck. REY Castillo documented in this encounter [facility] 02-25-2023 Note HNO ID: [id number] Author: CHEVY Manning) Service: ? Author Type: Technologist Type: Progress Notes Filed: 02/25/2023 1:25 PM Note Text: Radiology Service Progress Note DATE OF SERVICE: February 25, 2023 TIME: 1:24 PM PATIENT IDENTITY VERIFICATION COMPLETED USING TWO (2) STANDARD IDENTIFIERS: Name and Date of confirmed by patient verbally. FALL SCREENING: Has the patient had 2 falls in the last year or 1 fall with injury or currently using an Ambulatory Assistive Device (Walker, Cane, Wheelchair, Crutches, etc.)? No PATIENT GENDER DATA: Male PATIENT RELEVANT IMPLANT DATA REVIEWED: Yes ALLERGIES: Reviewed and unchanged CONTRAST ALLERGY: NO. EXAM: MRI - CONTRAST TYPE: GROUP II PERIPHERAL IV DATA: Ambulatory: A peripheral IV was started in the Left antecubital site with a Angio cath: 22 gauge. RADIOLOGY DEPARTMENT: MR; Exam(s) Completed: Head: Multiple Sclerosis Spine: Cervical spine SIGNATURE: RT Nigel(Stephanie) PATIENT NAME: Anival Moya DATE: February 25, 2023 TIME: 1:24 PM [facility] 02-18-2023 Note HNO ID: [id number] Author: Jazz Solomon LPN Service: ? Author Type: ? Type: Progress Notes Filed: 02/18/2023 2:41 PM Note Text: Ambulatory Ear Lavage Pre-treatment: No pre-treatment Treatment: Right ear Equipment and Irrigation solution and Volume used: Single use syringe with single use irrigation tip Water Return flow appearance: Debris Patient tolerated procedure: yes Post-treatment: Post Irrigation Post-treatment: Ear Canal/Tympanic membrane assessed by LIP yes Murali Santamaria CNP [facility] 02-18-2023 Note HNO ID: [id number] Author: Murali Santamaria APRN.RAFI Service: ? Author Type: Nurse Practitioner Type: Progress Notes Filed: 02/18/2023 2:41 PM Note Text: SUBJECTIVE Anival Moya is a 32 year old male here today for a check up on his medical problems. Chief Complaint Patient presents with: Recheck HPI Anival Moya is a 32 year old male who presents today for follow up. Since last visit he follow up with cardiology. 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 Cardiac testing so far negative. Has ECHO and stress coming up. Goes back to see cardiology after testing on 03/02, appt 03/04. Feels pressure in neck. Left sided. Feels this when he feels he might pass out. Right ear with bubbling and pressure. Seen in [facility] for this. On Flonase and Zyrtec. Some left sided abdominal swelling. Notes issues started last Tuesday (about 10 days ago) with some left sided upper abdominal discomfort. Feels like it is swollen. It is constant. Not really painful. No nausea, vomiting, diarrhea, or constipation. On Prilosec. Appetite is okay. Has had a prior scope done. GERD since a young kid. Prior esophagus stretching. His medications were reviewed today and his list is now up to date. Medications Current Outpatient Medications Medication Sig fluticasone (FLONASE) 50 mcg/actuation nasal spray Use 2 Sprays in each nostril once daily. Rinse mouth after use. cetirizine (ZYRTEC) 10 mg tablet Take 1 tablet by mouth once daily for 14 days. busPIRone (BUSPAR) 5 mg tablet Take 1 tablet by mouth three times daily as needed. meclizine (ANTIVERT) 25 mg tab Take 25 mg by mouth three times daily. omeprazole (PRILOSEC) 40 mg capsule Take 1 capsule by mouth once daily. famotidine (PEPCID) 40 mg tablet Take 1 tablet by mouth once daily. No current facility-administered medications for this visit. ALLERGIES No Known Allergies ACTIVE PROBLEM LIST Palpitations - 01/21/2023 Sprain of Ankle, Unspecified Site - 06/13/2006 Social History Tobacco Use Smoking status: Never Smokeless tobacco: Never Substance Use Topics Alcohol use: No Drug use: No Review of Systems HENT: Negative for congestion, hearing loss and tinnitus. Respiratory: Negative. OBJECTIVE BP 116/74 Pulse 72 Wt 184 lb (83.5kg) SpO2 98% Physical Exam Vitals and nursing note reviewed. Constitutional: General: He is awake. He is not in acute distress. Appearance: Normal appearance. He is well-developed and well-groomed. He is not ill-appearing, toxic-appearing or diaphoretic. HENT: Head: Normocephalic. Right Ear: Hearing and external ear normal. There is impacted cerumen. Left Ear: Hearing, tympanic membrane, ear canal and external ear normal. Ears: Comments: Large accumulation of cerumen to the canal occludes about 80%, irrigated per MA and able to fully visualize canal and TM, TM is without erythema or bulging, slight effusion Nose: Nose normal. Eyes: General: Vision grossly intact. Conjunctiva/sclera: Conjunctivae normal. Pupils: Pupils are equal, round, and reactive to light. Neck: Vascular: No carotid bruit or JVD. Trachea: Trachea normal. Cardiovascular: Rate and Rhythm: Normal rate and regular rhythm. Pulses: Normal pulses. Heart sounds: Normal heart sounds. No murmur heard. Pulmonary: Effort: Pulmonary effort is normal. No accessory muscle usage, prolonged expiration or respiratory distress. Breath sounds: Normal breath sounds. Musculoskeletal: Cervical back: Neck supple. Skin: General: Skin is warm and dry. Capillary Refill: Capillary refill takes less than 2 seconds. Neurological: General: No focal deficit present. Mental Status: He is alert and oriented to person, place, and time. Mental status is at baseline. Psychiatric: Attention and Perception: Attention and perception normal. Mood and Affect: Mood and affect normal. Speech: Speech normal. Behavior: Behavior normal. Behavior is cooperative. Thought Content: Thought content normal. Cognition and Memory: Cognition and memory normal. Judgment: Judgment normal. ASSESSMENT/PLAN: 1. Impacted cerumen of right ear - ICD9: 380.4, ICD10: H61.21 (primary diagnosis) Successfully irrigated. - AMBULATORY EAR LAVAGE/IRRIGATION 2. Fluid level behind tympanic membrane of right ear - ICD9: 381.4, ICD10: H65.91 - Continue with the Zyrtec and Flonase, call if worsening or persistent. No signs infection on exam today. 3. Dyspepsia - ICD9: 536.8, ICD10: R10.13 Add Pepcid to Prilosec. Refer to GI. - FAMOTIDINE 40 MG TABLET - CONSULT TO GASTROENTEROLOGY 4. Near syncope - ICD9: 780.2, ICD10: R55 Cardiac work up with cardiology, planning for stress test and ECHO, we will check carotids. - US CAROTID BILATERAL 5. Palpitations - ICD9: 785.1, ICD10: R00.2 - US CAROTID BILATERAL Portions of this note have been entered by ancillary staff. I have reviewed and when necessary edited, so that the (more content not included)... [facility] 02-15-2023 Note HNO ID: [id number] Author: Veronica Ochoa PA-C Service: ? Author Type: Physician Compliance Associate Type: Progress Notes Filed: 02/15/2023 3:43 PM Note Text: This note was created using [employer]. Caterina Moya is a 32 year old male. HPI Patient presents with the chief complaint of his right ear popping over the past 2 days. States he gets pain off and on. Denies congestion or cough. No fever. Has had some pressure between his eyes. No headaches. No dizziness. No OTC meds used. Denies trouble hearing. No recent swimming. No drainage out of the ear. Review of Systems Constitutional: Negative. HENT: Positive for ear pain. Negative for congestion, ear discharge, hearing loss, postnasal drip, rhinorrhea and sore throat. Respiratory: Negative. Cardiovascular: Negative. Gastrointestinal: Negative. Genitourinary: Negative. Musculoskeletal: Negative. Neurological: Negative for dizziness and headaches. All other systems reviewed and are negative. No past medical history on file. Current Outpatient Medications Medication Sig Dispense Refill naproxen (NAPROSYN) 500 mg tablet Take 1 tablet by mouth twice daily. busPIRone (BUSPAR) 5 mg tablet Take 1 tablet by mouth three times daily as needed. 90 tablet 1 meclizine (ANTIVERT) 25 mg tab Take 25 mg by mouth three times daily. omeprazole (PRILOSEC) 40 mg capsule Take 1 capsule by mouth once daily. 30 capsule 2 fluticasone (FLONASE) 50 mcg/actuation nasal spray Use 2 Sprays in each nostril once daily. Rinse mouth after use. 1 Each 0 cetirizine (ZYRTEC) 10 mg tablet Take 1 tablet by mouth once daily for 14 days. 14 tablet 0 No current facility-administered medications for this visit. PAST SURGICAL HISTORY Procedure Laterality Date TONSILLECTOMY PRIMARY/SECONDARY Tonsillectomy FAMILY HISTORY Problem Relation Age of Onset None Mother None Father Social History Tobacco Use Smoking status: Never Smokeless tobacco: Never Substance Use Topics Alcohol use: No Drug use: No Objective BP 120/68 Pulse 64 Temp 36.6 ?C (97.8 ?F) Resp 16 Wt 85.3 kg (188 lb) SpO2 99% Physical Exam Vitals reviewed. Constitutional: Appearance: Normal appearance. HENT: Head: Normocephalic and atraumatic. Right Ear: Tympanic membrane, ear canal and external ear normal. Left Ear: Tympanic membrane, ear canal and external ear normal. Nose: Nose normal. Mouth/Throat: Mouth: Mucous membranes are moist. Pharynx: Oropharynx is clear. Cardiovascular: Rate and Rhythm: Normal rate and regular rhythm. Heart sounds: Normal heart sounds. Pulmonary: Effort: Pulmonary effort is normal. Breath sounds: Normal breath sounds. Musculoskeletal: Cervical back: Neck supple. Skin: General: Skin is warm and dry. Neurological: Mental Status: He is alert. Assessment and Plan ASSESSMENT/PLAN: 1. Eustachian tube dysfunction, right - ICD9: 381.81, ICD10: H69.81 Trial Flonase and Zyrtec. If not improving he has follow-up on Tuesday with PCP. Veronica Ochoa PA-C [facility] 02-15-2023 History of Presen t illness Narrative This note was created using [employer]. Caterina Moya is a 32 year old male. HPI Patient presents with the chief complaint of his right ear popping over the past 2 days. States he gets pain off and on. Denies congestion or cough. No fever. Has had some pressure between his eyes. No headaches. No dizziness. No OTC meds used. Denies trouble hearing. No recent swimming. No drainage out of the ear. Review of Systems Constitutional: Negative. HENT: Positive for ear pain. Negative for congestion, ear discharge, hearing loss, postnasal drip, rhinorrhea and sore throat. Respiratory: Negative. Cardiovascular: Negative. Gastrointestinal: Negative. Genitourinary: Negative. Musculoskeletal: Negative. Neurological: Negative for dizziness and headaches. All other systems reviewed and are negative. No past medical history on file. Current Outpatient Medications Medication Sig Dispense Refill naproxen (NAPROSYN) 500 mg tablet Take 1 tablet by mouth twice daily. busPIRone (BUSPAR) 5 mg tablet Take 1 tablet by mouth three times daily as needed. 90 tablet 1 meclizine (ANTIVERT) 25 mg tab Take 25 mg by mouth three times daily. omeprazole (PRILOSEC) 40 mg capsule Take 1 capsule by mouth once daily. 30 capsule 2 fluticasone (FLONASE) 50 mcg/actuation nasal spray Use 2 Sprays in each nostril once daily. Rinse mouth after use. 1 Each 0 cetirizine (ZYRTEC) 10 mg tablet Take 1 tablet by mouth once daily for 14 days. 14 tablet 0 No current facility-administered medications for this visit. PAST SURGICAL HISTORY Procedure Laterality Date TONSILLECTOMY PRIMARY/SECONDARY <AGE 12 Tonsillectomy FAMILY HISTORY Problem Relation Age of Onset None Mother None Father Social History Tobacco Use Smoking status: Never Smokeless tobacco: Never Substance Use Topics Alcohol use: No Drug use: No Objective BP 120/68 Pulse 64 Temp 36.6 C (97.8 F) Resp 16 Wt 85.3 kg (188 lb) SpO2 99% Physical Exam Vitals reviewed. Constitutional: Appearance: Normal appearance. HENT: Head: Normocephalic and atraumatic. Right Ear: Tympanic membrane, ear canal and external ear normal. Left Ear: Tympanic membrane, ear canal and external ear normal. Nose: Nose normal. Mouth/Throat: Mouth: Mucous membranes are moist. Pharynx: Oropharynx is clear. Cardiovascular: Rate and Rhythm: Normal rate and regular rhythm. Heart sounds: Normal heart sounds. Pulmonary: Effort: Pulmonary effort is normal. Breath sounds: Normal breath sounds. Musculoskeletal: Cervical back: Neck supple. Skin: General: Skin is warm and dry. Neurological: Mental Status: He is alert. Assessment and Plan ASSESSMENT/PLAN: 1. Eustachian tube dysfunction, right - ICD9: 381.81, ICD10: H69.81 Trial Flonase and Zyrtec. If not improving he has follow-up on Tuesday with PCP. Veronica Ochoa PA-C documented in this encounter [facility] 02-15-2023 Hospital Discharg e instructions Patient Education 02/15/2023 13:20:52 Epigastric Pain (Uncertain Cause) Epigastric Pain (Uncertain Cause) Epigastric pain is pain in the upper abdomen. It can be a sign of disease. Common causes include: Acid reflux (stomach acid flowing up into the esophagus) Gastritis (irritation of the stomach lining) Most often this is from aspirin or NSAID medicines such as ibuprofen, bacteria called H. pylori, or frequent alcohol use. Peptic ulcer disease Inflammation of the pancreas Gallstone Infection in the gallbladder Pain may be dull or burning. It may spread upward to the chest or to the back. There may be other symptoms such as belching, bloating, cramps or hunger pains. There may be weight loss or poor appetite, nausea or vomiting. Since the cause of your pain is not certain yet,you may need more tests. Sometimes the doctor will treat you for the most likely condition to see if there is improvement before doing more tests. Home care Medicines Antacids help neutralize the normal acids in your stomach.If you don t like the liquid, you can try a chewable one. You may find one works better than another for you. Overuse can cause diarrhea or constipation. Acid blockers (H2 blockers) decrease acid production. Examples are cimetidine, famotidine, and ranitidine. Acid inhibitors (PPIs) decrease acid production in a different way than the blockers. You may find they work better, but can take a little longer to take effect. Examples are omeprazole, lansoprazole, pantoprazole, rabeprazole, and esomeprazole. Many of these are available [id number] or available as generics. Take an antacid 30 to 60 minutes after eating and at bedtime, but not at the same time as an acid tristin. Try not to take NSAIDs such as ibuprofen. Aspirin may also cause problems, but if taking it for your heart or other medical reasons, talk to your doctor before stopping it; you don't want to cause a worse problem, like a heart attack or stroke. Diet If certain foods seem to cause your pain, try not to eat them. Certain foods can worsen symptoms of gastritis. Limit or avoid fatty, fried, and spicy foods, as well as coffee, chocolate, mint, and foods with high acid content such as tomatoes and citrus fruit and juices (orange, grapefruit, lemon). Eat slowly and chew food well before swallowing. Symptoms of gastritis can be worsened by certain foods. Don't drink alcohol. It can irritate the stomach. Don't consume caffeine, or use tobacco. These can delay healing and worsen your problem. Try eating smaller meals with snacks in between. Keep an empty stomach for 2 to 3 hours before lying down. Prop the head of the bed up if you have overnight symptoms. This helps acid clear from your esophagus. Follow-up care Follow up with your healthcare provider or as advised. When to seek medical advice Call your healthcare provider right away if any of the following occur: Stomach pain worsens or moves to the right lower part of the abdomen Chest pain appears, or if it worsens or spreads to the chest, back, neck, shoulder, or arm Frequent vomiting (can t keep down liquids) Blood in the stool or vomit (red or black color) Feeling weak or dizzy, fainting, or having trouble breathing Fever of 100.4 F (38 C) or higher, or as directed by your healthcare provider Abdominal swelling [id number] [employer]. [address] [place] [address]. All rights reserved. This information is not intended as a substitute for professional medical care. Always follow your healthcare professional's instructions. 02/15/2023 13:20:47 Hypertension, To Be Confirmed High Blood Pressure, To Be Confirmed, No Treatment Your blood pressure today was higher than normal. Sometimes anxiety or pain can cause a temporary rise in blood pressure. It later returns to normal. Blood pressure that is high only one time doesn t mean that you have high blood pressure (hypertension). High blood pressure is a chronic illness. But you should have your blood pressure measured again within the next few days to find out if it s still high. Blood pressure measurements are given as 2 numbers. Systolic blood pressure is the upper number. This is the pressure when the heart contracts. Diastolic blood pressure is the lower number. This is the pressure when the heart relaxes between beats. You will see your blood pressure readings written together. For example, a person with a systolic pressure of 118 and a diastolic pressure of 78 will have 118/78 written in the medical record. Blood pressure is categorized as normal, elevated, or stage 1 or stage 2 high blood pressure: Normal blood pressure is systolic of less than 120 and diastolic of less than 80 (120/80) Elevated blood pressure is systolic of 120 to 129 and diastolic less than 80 Stage 1 high blood pressure is systolic is 130 to 139 or diastolic between 80 to 89 Stage 2 high blood pressure is when systolic is 140 or higher or the diastolic is 90 or higher Lifestyle changes such as weight loss, exercise, and quitting smoking, can help manage your blood pressure. Have your blood pressure checked regularly to be sure it is under control. Home care To track your blood pressure, your provider may ask you to come into the office at different times and on different days. If your healthcare provider asks you to check your readings at home, ask him or her what times of the day to test and for how many days. Before you leave the office, ask your provider to show you how to take your blood pressure and be sure to ask questions if you don't understand something. Consider buying an automatic blood pressure monitor. Ask your provider for a recommendation as well as the proper size cuff to fit your arm. You can buy blood pressure monitors at most pharmacies. The [place] [employer] recommends the following guidelines for home blood pressure monitoring: Don't smoke or drink coffee or other caffeinated drinks for 30 minutes before taking your blood pressure. Go to the bathroom before the test. Relax for 5 minutes before taking the measurement. Sit with your back supported (don't sit on a couch or soft chair); keep your feet on the floor uncrossed. Place your arm on a solid flat surface (like a table) with the upper part of the arm at heart level. Place the middle of the cuff directly above the bend of the elbow. Check the monitor's instruction manual for an illustration. Take multiple readings. When you measure, take 2 to 3 readings one minute apart and record all of the results. Take your blood pressure at the same time every day, or as your healthcare provider recommends. Record the date, time, and blood pressure reading. Take the record with you to your next medical appointment. If your blood pressure monitor has a built-in memory, simply take the monitor with you to your next appointment. Call your provider if you have several high readings. Don't be frightened by a single high blood pressure reading, but if you get several high readings, check in with your healthcare provider. Note: When blood pressure reaches a systolic (top number) of 180 or higher OR diastolic (bottom number) of 110 or higher, seek emergency medical treatment. Follow-up care Keep all of your follow up appointments. If your blood pressure is more than 120 over 80 on 2 out of 3 days, you will need to follow up with your healthcare provider for more evaluation and treatment. Don t put this off! High blood pressure can be treated. High blood pressure that s not treated raises your risk for heart attack, heart failure, and stroke. When to seek medical advice Call your healthcare provider right away if any of these occur: Blood pressure reaches a systolic (top number) of 180 or higher, OR diastolic (bottom number) of 110 or higher Chest pain or shortness of breath Severe headache Throbbing or rushing sound in the ears Nosebleed Sudden severe pain in your belly (abdomen) Extreme drowsiness, confusion, or fainting Dizziness or dizziness with spinning sensation (vertigo) Weakness of an arm or leg or one side of the face You have problems speaking or seeing [id number] [employer]. [address] [place] [address]. All rights reserved. This information is not intended as a substitute for professional medical care. Always follow your healthcare professional's instructions. Follow Up Care 02/15/2023 12:38:28 With:MURALI SANTAMARIA Address: [address] [place] [phone] When:2-4 days [facility] 02-15-2023 Emergency department Discharge summary Discharge Instructions Thank you for allowing [facility] to assist you with your healthcare needs. The following is important discharge information regarding your hospital visit. Diagnosis from Today's Visit Epigastric pain High blood pressure Epigastric Pain What to Do Next Instructions from Your Care Team No qualifying data available. Post Acute Orders No qualifying data available. You Need to Schedule the Following Appointments Follow Up with MURALI SANTAMARIA When Within 2-4 days Where: [address] [place] [address] [phone] Allergies NKA Medications Please ask your primary doctor or pharmacist before taking any other medication not listed, including over the counter drugs, herbal medications, vitamins and or supplements as they may interact with your home medications. What How Much When Why Instructions Last Dose New omeprazole (PriLOSEC OTC 20 mg oral delayed release tablet) 1 tab(s) by mouth Once a day before a meal Epigastric pain High blood pressure Printed Prescription Unchanged naproxen (naproxen 500 mg oral delayed release tablet) 1 tab(s) by mouth Every day Please take this list to your next doctor s visit. Bring all medications you take, including over the counter medications, herbals and other supplements with you to your doctor s visit. Patients and families are reminded to discard old lists and to update any records with all medication providers or retail pharmacies. Education Materials Epigastric Pain (Uncertain Cause) Epigastric pain is pain in the upper abdomen. It can be a sign of disease. Common causes include: Acid reflux (stomach acid flowing up into the esophagus) Gastritis (irritation of the stomach lining) Most often this is from aspirin or NSAID medicines such as ibuprofen, bacteria called H. pylori, or frequent alcohol use. Peptic ulcer disease Inflammation of the pancreas Gallstone Infection in the gallbladder Pain may be dull or burning. It may spread upward to the chest or to the back. There may be other symptoms such as belching, bloating, cramps or hunger pains. There may be weight loss or poor appetite, nausea or vomiting. Since the cause of your pain is not certain yet,you may need more tests. Sometimes the doctor will treat you for the most likely condition to see if there is improvement before doing more tests. Home care Medicines Antacids help neutralize the normal acids in your stomach.If you don t like the liquid, you can try a chewable one. You may find one works better than another for you. Overuse can cause diarrhea or constipation. Acid blockers (H2 blockers) decrease acid production. Examples are cimetidine, famotidine, and ranitidine. Acid inhibitors (PPIs) decrease acid production in a different way than the blockers. You may find they work better, but can take a little longer to take effect. Examples are omeprazole, lansoprazole, pantoprazole, rabeprazole, and esomeprazole. Many of these are available [id number] or available as generics. Take an antacid 30 to 60 minutes after eating and at bedtime, but not at the same time as an acid tristin. Try not to take NSAIDs such as ibuprofen. Aspirin may also cause problems, but if taking it for your heart or other medical reasons, talk to your doctor before stopping it; you don't want to cause a worse problem, like a heart attack or stroke. Diet If certain foods seem to cause your pain, try not to eat them. Certain foods can worsen symptoms of gastritis. Limit or avoid fatty, fried, and spicy foods, as well as coffee, chocolate, mint, and foods with high acid content such as tomatoes and citrus fruit and juices (orange, grapefruit, lemon). Eat slowly and chew food well before swallowing. Symptoms of gastritis can be worsened by certain foods. Don't drink alcohol. It can irritate the stomach. Don't consume caffeine, or use tobacco. These can delay healing and worsen your problem. Try eating smaller meals with snacks in between. Keep an empty stomach for 2 to 3 hours before lying down. Prop the head of the bed up if you have overnight symptoms. This helps acid clear from your esophagus. Follow-up care Follow up with your healthcare provider or as advised. When to seek medical advice Call your healthcare provider right away if any of the following occur: Stomach pain worsens or moves to the right lower part of the abdomen Chest pain appears, or if it worsens or spreads to the chest, back, neck, shoulder, or arm Frequent vomiting (can t keep down liquids) Blood in the stool or vomit (red or black color) Feeling weak or dizzy, fainting, or having trouble breathing Fever of 100.4 F (38 C) or higher, or as directed by your healthcare provider Abdominal swelling [id number] [employer]. [address] [place] [address], [place] [address]. All rights reserved. This information is not intended as a substitute for professional medical care. Always follow your healthcare professional's instructions. High Blood Pressure, To Be Confirmed, No Treatment Your blood pressure today was higher than normal. Sometimes anxiety or pain can cause a temporary rise in blood pressure. It later returns to normal. Blood pressure that is high only one time doesn t mean that you have high blood pressure (hypertension). High blood pressure is a chronic illness. But you should have your blood pressure measured again within the next few days to find out if it s still high. Blood pressure measurements are given as 2 numbers. Systolic blood pressure is the upper number. This is the pressure when the heart contracts. Diastolic blood pressure is the lower number. This is the pressure when the heart relaxes between beats. You will see your blood pressure readings written together. For example, a person with a systolic pressure of 118 and a diastolic pressure of 78 will have 118/78 written in the medical record. Blood pressure is categorized as normal, elevated, or stage 1 or stage 2 high blood pressure: Normal blood pressure is systolic of less than 120 and diastolic of less than 80 (120/80) Elevated blood pressure is systolic of 120 to 129 and diastolic less than 80 Stage 1 high blood pressure is systolic is 130 to 139 or diastolic between 80 to 89 Stage 2 high blood pressure is when systolic is 140 or higher or the diastolic is 90 or higher Lifestyle changes such as weight loss, exercise, and quitting smoking, can help manage your blood pressure. Have your blood pressure checked regularly to be sure it is under control. Home care To track your blood pressure, your provider may ask you to come into the office at different times and on different days. If your healthcare provider asks you to check your readings at home, ask him or her what times of the day to test and for how many days. Before you leave the office, ask your provider to show you how to take your blood pressure and be sure to ask questions if you don't understand something. Consider buying an automatic blood pressure monitor. Ask your provider for a recommendation as well as the proper size cuff to fit your arm. You can buy blood pressure monitors at most pharmacies. The [place] [employer] recommends the following guidelines for home blood pressure monitoring: Don't smoke or drink coffee or other caffeinated drinks for 30 minutes before taking your blood pressure. Go to the bathroom before the test. Relax for 5 minutes before taking the measurement. Sit with your back supported (don't sit on a couch or soft chair); keep your feet on the floor uncrossed. Place your arm on a solid flat surface (like a table) with the upper part of the arm at heart level. Place the middle of the cuff directly above the bend of the elbow. Check the monitor's instruction manual for an illustration. Take multiple readings. When you measure, take 2 to 3 readings one minute apart and record all of the results. Take your blood pressure at the same time every day, or as your healthcare provider recommends. Record the date, time, and blood pressure reading. Take the record with you to your next medical appointment. If your blood pressure monitor has a built-in memory, simply take the monitor with you to your next appointment. Call your provider if you have several high readings. Don't be frightened by a single high blood pressure reading, but if you get several high readings, check in with your healthcare provider. Note: When blood pressure reaches a systolic (top number) of 180 or higher OR diastolic (bottom number) of 110 or higher, seek emergency medical treatment. Follow-up care Keep all of your follow up appointments. If your blood pressure is more than 120 over 80 on 2 out of 3 days, you will need to follow up with your healthcare provider for more evaluation and treatment. Don t put this off! High blood pressure can be treated. High blood pressure that s not treated raises your risk for heart attack, heart failure, and stroke. When to seek medical advice Call your healthcare provider right away if any of these occur: Blood pressure reaches a systolic (top number) of 180 or higher, OR diastolic (bottom number) of 110 or higher Chest pain or shortness of breath Severe headache Throbbing or rushing sound in the ears Nosebleed Sudden severe pain in your belly (abdomen) Extreme drowsiness, confusion, or fainting Dizziness or dizziness with spinning sensation (vertigo) Weakness of an arm or leg or one side of the face You have problems speaking or seeing [id number] [employer]. [address] [place] [address]. All rights reserved. This information is not intended as a substitute for professional medical care. Always follow your healthcare professional's instructions. Additional Information VACCINATE! IT SAVES LIVES! Members of the community who have not yet received the COVID-19 vaccine and would like to receive it can visit one of [facility] vaccine clinics. There are many vaccine clinic locations within the [facility]. For locations and available times, please visit www.[email or web address].[place]. gov/. It is important to note that some COVID mobile vaccine clinics are held outdoors and may be canceled in rainy or stormy conditions. To learn more about pediatric vaccinations (ages 5-11), we invite you to visit the [facility] webpage. https://www.[facility].org/p ages/5276-Iiqkt-Ghuhwiudygh-Freq glfqub-Msjlz-Eswktzoqq.html To learn more about the COVID-19 vaccine, we invite you to visit the CDC website for a list of frequently asked questions. https://www.cdc.gov/coronavirus/ 2019-ncov/vaccines/faq.html [facility] Patient Portal Access Instructions: Stay connected with your healthcare team and access your personal medical information anytime with the [facility] Patient Portal. If you would like a full copy of your medical records please contact the [facility] Medical Records Department Tuesday through Tuesday between 8a.m. and 4:30p.m. Please follow the directions below to access the portal: 1.Access the email account you provided upon registration to the [facility].2.Look for an invitation email from [facility].3.Open the email and access the invitation link: Accept Invitation to [facility].Fill in the required casas to create your account. Sign into [email or web address] with your username and password that you created in the above steps to stay up to date. You can then view a summary of results, a summary of your visits, and the ability to download your summaries to your computer or send the information securely to a physician. Remember that your healthcare information is confidential, so carefully consider who you will allow to register on the [facility] Patient Portal for access to your information. You can also access the [facility] Patient Portal on the [employer]. Simply click on Health Records under Health Data and then click on the [employer] logo. HOW TO SAFELY DISPOSE OF PRESCRIPTION MEDICATIONS Please use one of the following methods to safely dispose of your unused medications. 1.Use a drug disposal kit: the drug disposal pouch allows you to safely discard your old and unused drugs. Ask your nurse to give you one when you are discharged.2.Visit a local take-back location: Many local pharmacies and police departments have programs that collect old and unwanted prescription drugs. Call your local pharmacy or go to http://[employer].[facility]/1D2Qt6t to find one close to you.3.Make use of household items: Use cat litter or old coffee grounds to dispose medications if other options are not available. Mix your drugs with these household products, seal them in an airtight container and throw it into the garbage. Call [facility]: [phone] to be sure your drugs can be disposed of in this way. Some medicines may require a different approach.4.Never flush your medications down the toilet. IF YOU HAVE BEEN PRESCRIBED AN OPIOIDS FOR PAIN If you have been prescribed an opioid (such as hydrocodone, oxycodone or morphine), it is critical to understand the possible side effects and risks of opioid pain medications. Even when taken as directed, opioids can have several side effects including: Tolerance, meaning you might need to take more of a medication for the same pain relief. Nausea, vomiting and/or constipation. Sleepiness, dizziness, dry mouth, confusion, depression or itching. Physical dependence, meaning you have withdrawal symptoms when a medication is stopped ? this can develop within a few days. KNOW YOUR RESPONSIBILITIES It is important to know exactly how much and how often to take the opioid pain medications you are prescribed. Never take opioids in higher amounts or more often than prescribed. Do not combine opioids with alcohol or other drugs that cause drowsiness, such as benzodiazepines, also known as benzos, including diazepam and alprazolam, muscle relaxants or sleep aids. Never sell or share prescription opioids. This is illegal. Store opioids in a secure place and out of reach of others (including children, family, friends and visitors). The last page(s) of this document has been signed and retained as a CHART COPY Signatures Patient Education Materials Epigastric Pain (Uncertain Cause) Hypertension, To Be Confirmed Medication Leaflets My discharge plan and instructions have been reviewed and explained to me and IHALLE COREY A understand my current condition and have read and understand these discharge instructions. I have received a written copy of the plan/instructions. If I have questions, I am aware that I should contact my doctor. 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 The lungs are clear of focal consolidation. No effusion, pneumothorax, or acute osseous abnormality. IMPRESSION: No radiographic evidence of acute cardiopulmonary process. Interpreted by: Mina Martin MD Preliminary Report By: Mina Martin MD Electronically signed By Mina Martin MD Dictated Date: 02/15/2023 1:13:03 PM Prelim Date: 02/15/2023 1:13:26 PM Sign Date: 02/15/2023 1:13:26 PM Ordering Provider: [facility] 02-15-2023 Note ORIGINAL EXAMINATION: ONE XRAY VIEW OF THE CHEST02/15/2023 1:10 pm CHEST ONE VIEW AP/PA COMPARISON: 12/20/2022 HISTORY: ORDERING SYSTEM PROVIDED HISTORY: Reason for Exam: chest pain FINDINGS: Heart size and vascularity are within normal limits. The lungs are clear of focal consolidation. No effusion, pneumothorax, or acute osseous abnormality. IMPRESSION: No radiographic evidence of acute cardiopulmonary process. Interpreted by: Mina Martin MD Preliminary Report By: Mina Martin MD Electronically signed By Mina Martin MD Dictated Date: 02/15/2023 1:13:03 PM Prelim Date: 02/15/2023 1:13:26 PM Sign Date: 02/15/2023 1:13:26 PM Ordering Provider: [facility] 02-15-2023 Miscellaneous Notes Noted, agree Reason for call: Patient calling with left rib and abdominal pain Outcome: Go to ED now(PCP triage) offered to call Virtualist to assess patient but patient refused and said he was going to the ED Reason for Disposition Patient sounds very sick or weak to the triager Answer Assessment - Initial Assessment Questions 1. LOCATION: left side underneath ribs 2 sharp pain in lower back 2 days ago Tuesday after pain about an inch of swelling and it feels tight hurts more upon pushing on area and taking a deep breath and moving certain way 2. RADIATION: left abdominal area 3. ONSET: last week Thursday 02/08 4. SUDDEN: noticed some swelling and tightness and pt had pain upon a deep breath and feels tight when lying on back 5. PATTERN hurts upon moving a certain way or makes it tighter it hurts, but patient has a constant tightness and discomfort underneath left rib 6. SEVERITY: 4-/10 7. RECURRENT SYMPTOM: no 8. AGGRAVATING FACTORS after eating patient states that he can feel the pain it a little bit 9. CARDIAC SYMPTOMS: nausea upon patient pressing on left rib area and have nausea with and after pain 10. OTHER SYMPTOMS: back pain, left leg numbness and leg feels heavy but patient is able to walk, patient has pain from knee down to toes, left leg feels warmer than right leg. Patient states that he is also light headed at times patient right ear pops at times also Patient has some mild swelling in left rib area with continuous tightness. 11. : n/a Protocols used: Abdominal Pain - [id number] documented in this encounter [facility] 01-31-2023 Note HNO ID: [id number] Author: Murali Santamaria APRN.RAFI Service: ? Author Type: Nurse Practitioner Type: Progress Notes Filed: 01/31/2023 11:59 AM Note Text: SUBJECTIVE Anival Moya is a 32 year old male here today for an ER follow up. Chief Complaint Patient presents with: ER F/U: [facility] ER 01/28/23 due to numbness in left neck down into arms and fingers. Tightness in neck continues HPI Anivalbenji Moya is a 32 year old male who presents today for ER follow up. He was brought to our EC 01/28/2023 and advised to go to ER, seen in [facility]. Er records available for review via Care Everywhere. Had presented for concerns of left arm pain and numbness and associated nausea. Suspected a cervical radiculopathy. Xrays negative. Started on naproxen. States today pain went from the base of the neck down the left arm into the three fingers on the side of the pinky. Pain was alleviated when ER provider applied manual traction. Some left sided facial sensation disturbance but no issues with speech or drooping of face. Still having some left shoulder sensation disturbance but no weakness. Prior recent ER visit to 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 Seeing cardiology this Tuesday the . His medications were reviewed today and his list is now up to date. Medications Current Outpatient Medications Medication Sig naproxen (NAPROSYN) 500 mg tablet Take 1 tablet by mouth twice daily. busPIRone (BUSPAR) 5 mg tablet Take 1 tablet by mouth three times daily as needed. meclizine (ANTIVERT) 25 mg tab Take 25 mg by mouth three times daily. omeprazole (PRILOSEC) 40 mg capsule Take 1 capsule by mouth once daily. iv contrast (will be provided with radiology test) MRI Brain Inject, intravenously, once for 1 dose.No IV access, insert saline lock prior to beginning of sedation, infusion, injection of imaging exam.Discontinue saline lock post exam. If Pt. has a central line or IVAD, may access for administration according to line specific nursing protocol.Once exam is complete flush line and de-access according to line specific nursing protocol in the MR contrast administration guidelines link No current facility-administered medications for this visit. ALLERGIES No Known Allergies ACTIVE PROBLEM LIST Palpitations - 01/21/2023 Sprain of Ankle, Unspecified Site - 06/13/2006 Social History Tobacco Use Smoking status: Never Smokeless tobacco: Never Substance Use Topics Alcohol use: No Drug use: No Review of Systems Respiratory: Negative. Cardiovascular: Negative. Neurological: Positive for dizziness and numbness. Negative for tremors, seizures, syncope, facial asymmetry, speech difficulty, weakness, light-headedness and headaches. OBJECTIVE BP 124/82 Pulse 64 Wt 187 lb (84.8kg) SpO2 99% Physical Exam Vitals and nursing note reviewed. Constitutional: General: He is awake. He is not in acute distress. Appearance: Normal appearance. He is well-developed and well-groomed. He is not ill-appearing, toxic-appearing or diaphoretic. HENT: Head: Normocephalic. Right Ear: External ear normal. Left Ear: External ear normal. Nose: Nose normal. Eyes: General: Vision grossly intact. Conjunctiva/sclera: Conjunctivae normal. Pupils: Pupils are equal, round, and reactive to light. Neck: Vascular: No JVD. Trachea: Trachea normal. Cardiovascular: Rate and Rhythm: Normal rate and regular rhythm. Pulses: Normal pulses. Heart sounds: Normal heart sounds. No murmur heard. Pulmonary: Effort: Pulmonary effort is normal. No accessory muscle usage, prolonged expiration or respiratory distress. Breath sounds: Normal breath sounds. Musculoskeletal: Cervical back: Neck supple. Comments: Positive Spurling test on left Skin: General: Skin is warm and dry. Capillary Refill: Capillary refill takes less than 2 seconds. Neurological: General: No focal deficit present. Mental Status: He is alert and oriented to person, place, and time. Mental status is at baseline. Cranial Nerves: Cranial nerves 2-12 are intact. Sensory: Sensation is intact. Motor: Motor function is intact. Coordination: Coordination is intact. Gait: Gait is intact. Psychiatric: Attention and Perception: Attention and perception normal. Mood and Affect: Mood and affect normal. Speech: Speech normal. Behavior: Behavior normal. Behavior is cooperative. Thought Content: Thought content normal. Cognition and Memory: Cognition and memory normal. Judgment: Judgment normal. ASSESSMENT/PLAN: 1. Cervical radiculopathy - ICD9: 723.4, ICD10: M54.12 (primary diagnosis) Check MRI since xray unremarkable given his symptoms. Need to make sure we rule out a neuro degenerative disease process such as MS given his number of symptoms. - MRI CERVICAL SPINE WO IVCON 2. Paresthesia and pain of extremity - ICD9: 78 (more content not included)... [facility] 01-31-2023 History of Presen t illness Narrative CATERINA Moya is a 32 year old male here today for an ER follow up. Chief Complaint Patient presents with: ER F/U: [facility] ER 01/28/23 due to numbness in left neck down into arms and fingers. Tightness in neck continues HPI Anival Moya is a 32 year old male who presents today for ER follow up. He was brought to our EC 01/28/2023 and advised to go to ER, seen in [facility]. Er records available for review via Care Everywhere. Had presented for concerns of left arm pain and numbness and associated nausea. Suspected a cervical radiculopathy. Xrays negative. Started on naproxen. States today pain went from the base of the neck down the left arm into the three fingers on the side of the pinky. Pain was alleviated when ER provider applied manual traction. Some left sided facial sensation disturbance but no issues with speech or drooping of face. Still having some left shoulder sensation disturbance but no weakness. Prior recent ER visit to 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 Seeing cardiology this Tuesday the . His medications were reviewed today and his list is now up to date. Medications Current Outpatient Medications Medication Sig naproxen (NAPROSYN) 500 mg tablet Take 1 tablet by mouth twice daily. busPIRone (BUSPAR) 5 mg tablet Take 1 tablet by mouth three times daily as needed. meclizine (ANTIVERT) 25 mg tab Take 25 mg by mouth three times daily. omeprazole (PRILOSEC) 40 mg capsule Take 1 capsule by mouth once daily. iv contrast (will be provided with radiology test) MRI Brain Inject, intravenously, once for 1 dose.No IV access, insert saline lock prior to beginning of sedation, infusion, injection of imaging exam.Discontinue saline lock post exam. If Pt. has a central line or IVAD, may access for administration according to line specific nursing protocol.Once exam is complete flush line and de-access according to line specific nursing protocol in the MR contrast administration guidelines link No current facility-administered medications for this visit. ALLERGIES No Known Allergies ACTIVE PROBLEM LIST Palpitations - 01/21/2023 Sprain of Ankle, Unspecified Site - 06/13/2006 Social History Tobacco Use Smoking status: Never Smokeless tobacco: Never Substance Use Topics Alcohol use: No Drug use: No Review of Systems Respiratory: Negative. Cardiovascular: Negative. Neurological: Positive for dizziness and numbness. Negative for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 regulations: The Federal rules restrict any use of the information to criminally investigate or prosecute any alcohol or drug abuse patient.[facility] the event this information is protected by the Federal Confidentiality of Alcohol and Drug Abuse Patient Records regulations: The Federal rules restrict any use of the information to criminally investigate or prosecute any alcohol or drug abuse patient.[facility] the event this information is protected by the Federal Confidentiality of Alcohol and Drug Abuse Patient Records regulations: The Federal rules restrict any use of the information to criminally investigate or prosecute any alcohol or drug abuse patient.[facility] the event this information is protected by the Federal Confidentiality of Alcohol and Drug Abuse Patient Records regulations: The Federal rules restrict any use of the information to criminally investigate or prosecute any alcohol or drug abuse patient.[facility] the event this information is protected by the Federal Confidentiality of Alcohol and Drug Abuse Patient Records regulations: The Federal rules restrict any use of the information to criminally investigate or prosecute any alcohol or drug abuse patient.[facility] the event this information is protected by the Federal Confidentiality of Alcohol and Drug Abuse Patient Records regulations: The Federal rules restrict any use of the information to criminally investigate or prosecute any alcohol or drug abuse patient.[facility] the event this information is protected by the Federal Confidentiality of Alcohol and Drug Abuse Patient Records regulations: The Federal rules restrict any use of the information to criminally investigate or prosecute any alcohol or drug abuse patient.[facility] the event this information is protected by the Federal Confidentiality of Alcohol and Drug Abuse Patient Records regulations: The Federal rules restrict any use of the information to criminally investigate or prosecute any alcohol or drug abuse patient.[facility] the event this information is protected by the Federal Confidentiality of Alcohol and Drug Abuse Patient Records regulations: The Federal rules restrict any use of the information to criminally investigate or prosecute any alcohol or drug abuse patient.[facility] the event this information is protected by the Federal Confidentiality of Alcohol and Drug Abuse Patient Records regulations: The Federal rules restrict any use of the information to criminally investigate or prosecute any alcohol or drug abuse patient.[facility] the event this information is protected by the Federal Confidentiality of Alcohol and Drug Abuse Patient Records regulations: The Federal rules restrict any use of the information to criminally investigate or prosecute any alcohol or drug abuse patient.[facility] the event this information is protected by the Federal Confidentiality of Alcohol and Drug Abuse Patient Records regulations: The Federal rules restrict any use of the information to criminally investigate or prosecute any alcohol or drug abuse patient.[facility] the event this information is protected by the Federal Confidentiality of Alcohol and Drug Abuse Patient Records regulations: The Federal rules restrict any use of the information to criminally investigate or prosecute any alcohol or drug abuse patient.[facility] the event this information is protected by the Federal Confidentiality of Alcohol and Drug Abuse Patient Records regulations: The Federal rules restrict any use of the information to criminally investigate or prosecute any alcohol or drug abuse patient.[facility] Reason for Visit (unrecogniz ed section and content) Specialty Diagnoses / Procedures Referred By Zohreh vila Referred To Contact Diagnoses Physical, est care Procedures physical Self [facility] Dept Referral ID Status Reason Start Date Expiration Date Visits Requested Visits Authorized [id number] Authorized Patient Cleared - Qualified 100% FAS 12/07/2022 03/07/2023 99 99 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 Reason Comments ER F/U [facility] 01/28/23 due to numbness in left neck down into arms and fingers.Tightness in neck continues Reason Comments Pain, Abdominal Reason Comments Ear Problem popping in right ear x 2 days Reason Comments Recheck 4 week Reason Comments Follow Up Scope results Reason Comments Physical has a Wellness form that needs completed Reason Comments UTI sanchez with urination and foul order Had STD check and was cleared Reason Comments Procedure Follow Up EGD 05/11/23 Reason Comments Neck Pain Wart R foot, medial 3rd t oe Reason Comments Neck Pain Worsen since last OV - moved quickly earlier this week and has worsened Care Teams (unrecognized sec tion and content) Content Coordinator Relationship Specialty Start Date End Date Murali Santamaria APRN.TREADLE CUT OFF SAW OPERATOR [address] [place] [phone] PCP - General Internal Medicine 01/21/23 Content Coordinator Relationship Specialty Start Date End Date Murali Santamaria APRN.TREADLE CUT OFF SAW OPERATOR [address] [place] [phone] PCP - General Internal Medicine 01/21/23 Content Coordinator Relationship Specialty Start Date End Date Murali Santamaria APRN.TREADLE CUT OFF SAW OPERATOR [address] [place] [phone] PCP - General Internal Medicine 01/21/23 Content Coordinator Relationship Specialty Start Date End Date Murali Santamaria APRN.TREADLE CUT OFF SAW OPERATOR [address] [place] [phone] PCP - General Internal Medicine 01/21/23 Content Coordinator Relationship Specialty Start Date End Date Murali Santamaria APRN.TREADLE CUT OFF SAW OPERATOR [address] [place] [phone] PCP - General Internal Medicine 01/21/23 Content Coordinator Relationship Specialty Start Date End Date Murali Santamaria APRN.TREADLE CUT OFF SAW OPERATOR [address] [place] [address] [phone] PCP - General Internal Medicine 01/21/23 Content Coordinator Relationship Specialty Start Date End Date Murali Santamaria [employer] SALESPERSON.TREADLE CUT OFF SAW OPERATOR [address] [place] [phone] PCP - General Internal Medicine 01/21/23 Content Coordinator Relationship Specialty Start Date End Date Murali Santamaria [employer] SALESPERSON.TREADLE CUT OFF SAW OPERATOR [address] [place] [address] [phone] PCP - General Internal Medicine 01/21/23 Content Coordinator Relationship Specialty Start Date End Date Murali Santamaria [employer] SALESPERSON.TREADLE CUT OFF SAW OPERATOR [address] [place] [address] [phone] PCP - General Internal Medicine 01/21/23 Content Coordinator Relationship Specialty Start Date End Date Murali Santamaria [employer] SALESPERSON.TREADLE CUT OFF SAW OPERATOR [address] [place] [address] [phone] PCP - General Internal Medicine 01/21/23 Content Coordinator Relationship Specialty Start Date End Date Murali Santamaria [employer] SALESPERSON.TREADLE CUT OFF SAW OPERATOR [address] [place] [phone] PCP - General Internal Medicine 01/21/23 Content Coordinator Relationship Specialty Start Date End Date Murali Santamaria [employer] SALESPERSON.TREADLE CUT OFF SAW OPERATOR [address] [place] [address] [phone] PCP - General Internal Medicine 01/21/23 FOR RECORDS PERTAINING TO PATIENTS WHO ARE OR HAVE BEEN ENROLLED IN A CHEMICAL DEPENDENCY/SUBSTANCEABUSE PROGRAM, SOME INFORMATION MAY BE OMITTED. This clinical summary was aggregated from multiple sources. Caution should be exercised in using it in the provision of clinical care. This summary normalizes information from multiple sources, and as a consequence, information in this document may materially change the coding, format and clinical context of patient data. In addition, data may be omitted in some cases. CLINICAL DECISIONS SHOULD BE BASED ON THE PRIMARY CLINICAL RECORDS. [facility]. provides no warranty or guarantee of the accuracy or completeness of information in this document.
== END 2023-12-23 12:30 | disposition home or self-care (01) ==
PROVIDERS: Emergency Provider Emergency Medicine; PCP Internal Medicine; Visit Provider Emergency Medicine
DX: M54.9 Dorsalgia, unspecified (principal); M99.02 Segmental and somatic dysfunction of thoracic region; K21.9 Gastro-esophageal reflux disease without esophagitis
CPT/HCPCS: 99282